=== PATIENT | female | born 1940 | race Caucasian/White ===

== ENCOUNTER 2023-05-27 18:43 | Emergency (ER) | payer MEDICARE, SELFPAY ==
[2023-05-27 18:44] VITALS: BP 128/83; PULSE 111; RESP 18; TEMP 36.3; O2SAT 97
--- NOTE | 2023-05-27 18:58 | CT_ITS ---
EXAM: CT MAXILLOFACIAL WITHOUT INTRAVENOUS CONTRAST CLINICAL INDICATION: trauma TECHNIQUE: Helically acquired images were obtained of the face without intravenous contrast. This CT exam was performed using one or more of the following dose reduction techniques: automated exposure control, adjustment of the mA and/or kV according to patient size, and/or use of iterative reconstruction technique. COMPARISON: No relevant prior studies available. FINDINGS: BONES/JOINTS: Unremarkable. No displaced fracture. No discrete lytic or blastic abnormalities. SOFT TISSUES: Unremarkable. No focal subcutaneous swelling. No discrete fluid collections. ORBITS: Unremarkable. Both globes are unremarkable. Extraocular muscles are normal. Retrobulbar fat appears unremarkable. SINUSES: Unremarkable as visualized. Clear. MASTOID AIR CELLS: Unremarkable as visualized. Clear. DENTAL: No acute findings. No periodontal osseous erosion. CT/Sinus/Facial Bone IMPRESSION: Negative CT facial bones without intravenous contrast. Electronically Signed: Manan Tong MD at 20:58 EST ,
--- NOTE | 2023-05-27 18:58 | CT_ITS ---
EXAM: CT CERVICAL SPINE WITHOUT INTRAVENOUS CONTRAST CLINICAL INDICATION: trauma TECHNIQUE: Helically acquired images were obtained of the cervical spine without intravenous contrast. 2D reformatted images were reviewed. This CT exam was performed using one or more of the following dose reduction techniques: automated exposure control, adjustment of the mA and/or kV according to patient size, and/or use of iterative reconstruction technique. COMPARISON: No relevant prior studies available. FINDINGS: VERTEBRAE: There is mild straightening of the normal cervical lordosis. No fracture. No traumatic subluxation. No discrete lytic or blastic abnormality. Normal craniocervical junction and cervicothoracic junction. DISCS/SPINAL CANAL/NEURAL FORAMINA: There is disc space narrowing at C5-6. SOFT TISSUES: Unremarkable. No prevertebral soft tissue swelling. LYMPH NODES: Unremarkable. No cervical adenopathy. LUNG APICES: Unremarkable as visualized. Clear. CT/Spine Cervical without Contras IMPRESSION: 1. No acute osseous abnormalities of the cervical spine. 2. Mild degenerative changes with disc space narrowing. There is straightening of the normal cervical lordosis which may be due to a muscular strain. Electronically Signed: Manan Tong MD at 20:59 EST ,
--- NOTE | 2023-05-27 18:58 | CT_ITS ---
EXAM: CT HEAD WITHOUT INTRAVENOUS CONTRAST CLINICAL INDICATION: trauma TECHNIQUE: Multiple axial images were obtained of the head without intravenous contrast. This CT exam was performed using one or more of the following dose reduction techniques: automated exposure control, adjustment of the mA and/or kV according to patient size, and/or use of iterative reconstruction technique. COMPARISON: No relevant prior studies available. FINDINGS: BRAIN AND EXTRA-AXIAL SPACES: There is enlargement of ventricular system and cortical sulci. There is hypoattenuation in the periventricular white matter. No intra- or extra-axial hemorrhage. No evidence of acute infarct. No intracranial mass or mass effect. There is preservation of the hansen/white matter interface. Posterior fossa structures are unremarkable. Basal cisterns are patent. BONES/JOINTS: Unremarkable. No discrete lytic or blastic abnormalities. SINUSES: Unremarkable as visualized. Clear. MASTOID AIR CELLS: Unremarkable. Clear. ORBITS: Visualized globes, extraocular muscles, optic nerves and retrobulbar fat appear unremarkable. CT/Brain/Head without Contrast IMPRESSION: 1. No acute intracranial abnormality. 2. Underlying senescent change with small vessel ischemia. Electronically Signed: Manan Tong MD at 20:49 EST ,
--- NOTE | 2023-05-27 18:59 | EX.ED.DYSGE1 ---
HPI History of Present Illness Chief Complaint: Dizziness Detail of Chief Complaint: Intermittent dizziness after a fall. Informant: patient Onset/Context/Timing Onset: Days Narrative Narrative: Patient presents with intermittent dizziness after a fall. She states that 2 days ago she got up in her home and fell. She does not know if she tripped on something or what happened that caused her to fall. She has bruising to her face as well as her right wrist. She states since that fall she will have intermittent dizziness. She describes it both as a lightheaded sensation as well as a spinning sensation. Lying in the bed currently she denies dizziness, but she states if she lays down at home and picks her head up she feels like everything is moving. She is not on anticoagulants. [facility] Medical History (Updated 05/27/23 @ 21:[address] Ayla Lai MD) Diabetes HTN (hypertension) Hyperlipidemia Posterior circulation stroke Home Medications amlodipine 5 mg tablet 5 mg PO DAILY ##60 11/30/14 [Rx Last Taken Unknown] aspirin 81 mg chewable tablet 81 mg PO DAILY@0800 ##60 11/30/14 [Rx Last Taken Unknown] atorvastatin 40 mg tablet 40 mg PO QHS ##60 11/30/14 [Rx Last Taken Unknown] lisinopril 20 mg tablet 20 mg PO DAILY ##60 11/30/14 [Rx Last Taken Unknown] meclizine 25 mg tablet 25 mg PO TID PRN PRN Vertigo #20 tabs 11/30/14 [Rx Last Taken Unknown] methylprednisolone 4 mg tablets in a dose pack 4 mg PO UD ##1 11/30/14 [Rx Last Taken Unknown] meclizine 25 mg tablet 25 mg PO BID PRN dizziness #14 tabs 05/27/23 [Rx Last Taken Unknown] Allergy/AdvReac Type Severity Reaction Status Date / Time codeine Allergy Intermediate Rash Verified 05/27/23 18:44 latex Allergy Intermediate Rash Verified 05/27/23 18:44 Sulfa (Sulfonamide Allergy Intermediate Rash Verified 05/27/23 18:44 Antibiotics) Social History Smoking Status: Never smoker ROS ROS ED Constitutional Constitutional ED: Denies chills or fever(s) Eyes Eyes: Denies change in vision or discharge from eye(s) ENT ENT ED: Denies discharge from eye(s), rhinorrhea or sore throat Cardiovascular Cardiovascular: Denies chest pain or palpitations Respiratory/Chest Respiratory/Chest: Denies cough or dyspnea Gastrointestinal Gastrointestinal: Denies abdominal pain, nausea or vomiting Genitourinary Genitourinary ED: Denies dysuria Musculoskeletal Musculoskeletal: Reports extremity pain; Denies back pain Integumentary Reports other Details: Ecchymoses ; Denies Abrasions or rash Neurologic Neurologic: Denies headache(s) or weakness Psychiatric Psychiatric: Denies anxiety or depression Allergic/Immunologic Allergic/Immunologic ED: Denies lip swelling or urticaria EXAM Physical Exam Const Vital Signs: 05/27/23 18:44 05/27/23 19:21 05/27/23 20:43 Temperature 97.3 F L Temperature Source Temporal Pulse Rate 111 H Respiratory Rate 18 16 Respiratory Effort Normal Non-Labored Respiratory Pattern Normal Blood Pressure 128/83 H Blood Pressure Mean 98 Pulse Ox 97 Oxygen Delivery Method Room Air Positive well nourished and well developed General Appearance ED: well developed HEENT HEENT Narrative: Bruising noted to the patient's forehead as well as her upper lip. Teeth are stable. No lacerations noted. Eyes PERRL and EOMs intact bilaterally Neck Neck Narrative: No C-spine tenderness. Chest Wall inspection of chest normal and palpation of chest normal Resp normal respiratory effort and clear to auscultation bilaterally Cardio regular rate and regular rhythm GI non-tender Palpation: soft Extremity Extremity Narrative: Erythema to the distal right forearm and wrist. Mild tenderness at the wrist with edema. Able to wiggle all fingers without difficulty. Neuro oriented x3 and no sensory deficits noted Motor Exam: strength 5/5 throughout Psych mental status grossly normal Skin Skin Narrative: Ecchymosis as noted above. MDM MDM MDM Narrative Medical decision making narrative: Patient sent for CT imaging of the brain, facial bones, and C-spine to evaluate for fracture, bleed, edema. Right wrist x-rays obtained to evaluate for fracture. Radiography Diagnostic Testing: Clinical Impression(s) from Imaging Studies Brain CT 05/27/23 18:58 IMPRESSION: 1. No acute intracranial abnormality. 2. Underlying senescent change with small vessel ischemia. Electronically Signed: Manan Tong MD at 20:49 EST , Cervical Spine CT 05/27/23 18:58 IMPRESSION: 1. No acute osseous abnormalities of the cervical spine. 2. Mild degenerative changes with disc space narrowing. There is straightening of the normal cervical lordosis which may be due to a muscular strain. Electronically Signed: Manan Tong MD at 20:59 EST , Facial/Sinus 05/27/23 18:58 IMPRESSION: Negative CT facial bones without intravenous contrast. Electronically Signed: Manan Tong MD at 20:58 EST , Wrist X-Ray 05/27/23 19:27 IMPRESSION: Negative right wrist x-rays. Electronically Signed: Manan Tong MD at 20:59 EST , Treatment and Re-Evaluation :: Right wrist x-rays per my interpretation reveal no evidence of acute fracture. Radiology interpretation reviewed and agrees. CT scan of the head, C-spine, and facial bones read by radiology with no acute findings and no fracture. Test results discussed with the patient. I did check her ears bilaterally and she has no evidence of infection. Patient's symptoms been intermittent and since falling and hitting her head. We discussed the likelihood that this is secondary to concussion. They are also concerned that she may have fallen because she was dizzy and may have some vertigo. At this time when she lies in bed and turns her head [id number] she does not have recurrent symptoms. I will give her a dose of Antivert here and sent a prescription to the pharmacy. We discussed different tricks at home to keep her safe to prevent falls. I also left a message for social work in regards to possible life alert button for her. Family at bedside is comfortable with this plan. Discharge Plan Triage Chief Complaint: Dizziness ED Provider: Ayla Lai Dx/Rx/DC Orders Clinical Impression: Fall, Dizziness, Concussion, Sprain of wrist Instructions: ED Concussion, ED Dizziness, Uncertain Cause, ED Wrist Sprain Prescriptions: New meclizine 25 mg tablet 25 mg PO BID PRN (Reason: dizziness) Qty: 14 0RF No Action atorvastatin 40 MG tablet 40 mg PO QHS Qty: 60 0RF Patient Comments: cholesterol lisinopril 20 MG tablet 20 mg PO DAILY Qty: 60 0RF Patient Comments: blood pressure/heart amlodipine 5 MG tablet 5 mg PO DAILY Qty: 60 0RF Patient Comments: heart/blood pressure aspirin 81 MG tablet,chewable 81 mg PO DAILY@0800 Qty: 60 0RF Patient Comments: heart health methylprednisolone 4 MG tablet 4 mg PO UD Qty: 1 0RF Patient Comments: steroid meclizine 25 MG tablet 25 mg PO TID PRN PRN (Reason: Vertigo) Qty: 20 0RF Patient Comments: dizziness Primary Care Provider: Care Physician,No Primary Referrals: Care Physician,No Primary [Primary Care Provider] - [facility] [Non-Staff] - 1 Week Disposition Disposition: Home, Self Care
--- OUTSIDE RECORDS SUMMARY | 2023-05-27 19:21 | XMS RPT_ITS | CCD ---
Author Name Unknown Address [address] [place] [address] Organization [facility] Care Team Providers Care E Learning Designer Name Role Phone Shantal Duran MD Primary Care Provider GANSHANTAL IRIZARRY Primary Care Unavailable OLDER, MAYELIN Attending Unavailable RENEE, SHANTAL Primary Care Unavailable OLDER, MAYELIN Attending Unavailable GANTA, SHANTAL Primary Care Unavailable OLDER, MAYELIN Referring Unavailable GANTA, SHANTAL Primary Care Unavailable OLDER, MAYELIN Attending Unavailable RENEE, SHANTAL Primary Care Unavailable OLDER, MAYELIN Referring Unavailable Allergies Allergy Classification Reported Allergen(s) Allergy Type Date of Onset Reaction(s) Facility (16 sources) atorvastatin; Translations: [ATORVASTATIN] Drug Allergy 2 Intolerance [facility] (16 sources) Codeine; Translations: [CODEINE] Drug Allergy 5 Anaphylaxis [facility] (16 sources) Latex; Translations: [LATEX] Propensity to adverse reactions 5 [facility] Work Phone: (16 sources) Naproxen; Translations: [NAPROXEN SODIUM] Drug Allergy 5 Intolerance [facility] (16 sources) Pravastatin; Translations: [PRAVASTATIN] Drug Allergy 0 [facility] (16 sources) Sulfonamides (Antibiotic); Translations: [SULFA (SULFONAMIDE ANTIBIOTICS)] Drug Allergy 5 Rash [facility] Work Phone: (14 sources) eggs [Other] Propensity to adverse reactions 6 [facility] (1 source) egg extract Drug Allergy 3 Itching [facility] Work Phone: (1 source) OTHER; Translations: [OTHER] Propensity to adverse reactions (disorder) 6 [facility] Medications Completed/Discontinued Medications Medication Drug Class(es) Dates Sig (Normalized) Sig (Original) amLODIPine 5 mg oral tablet (16 sources) Dihydropyridine Calcium [employer] Satinder Start: 11-01-2021 End: 10-24-2022 take 1 tablet by mouth once daily amLODIPine (NORVASC) 5 mg tablet Take 1 tablet by mouth once daily. 90 tablet 3 10/24/2022 Active Problems Active Problems Problem Classification Problem Date Documented Date Episodic/Chronic Anxiety disorders (20 sources) Mixed anxiety and depressive disorder; Translations: [Anxiety disorder, unspecified] Onset: 02-26-2017 02-26-2017 Chronic Disorders of lipid metabolism (20 sources) Hyperlipidemia; Translations: [Hyperlipidemia, unspecified] Onset: 03-29-2008 04-01-2015 Chronic Diverticulosis and diverticulitis (15 sources) Diverticulosis of colon; Translations: [Diverticulosis of large intestine without perforation or abscess without bleeding] Onset: 07-20-2005 07-20-2005 Chronic Esophageal disorders (15 sources) Gastroesophageal reflux disease; Translations: [Gastro-esophageal reflux disease without esophagitis] 06-15-2005 Chronic Essential hypertension (20 sources) Benign essential hypertension; Translations: [Essential (primary) hypertension] Onset: 09-19-2005 05-22-2021 Chronic Mood disorders (2 sources) Recurrent major depression in partial remission; Translations: [Major depressive disorder, recurrent, in partial remission] Onset: 04-25-2023 04-25-2023 Chronic Mood disorders (1 source) Mood disorders; Translations: [Anxiety and depression] Onset: 02-26-2017 Nutritional deficiencies (2 sources) Vitamin D deficiency; Translations: [Vitamin D deficiency, unspecified] Chronic Other aftercare (1 source) Patient encounter status; Translations: [Encounter for therapeutic drug level monitoring] Episodic Past or Other Problems Problem Classification Problem Date Documented Da te Episodic/Chronic Diabetes mellitus without complication (20 sources) Impaired fasting glycemia; Translations: [Impaired fasting glucose] Onset: 12-18-2006 12-18-2006 Episodic Other and unspecified benign neoplasm (15 sources) Benign neoplasm of colon; Translations: [Benign neoplasm of colon, unspecified] Onset: 07-20-2005 07-20-2005 Episodic Varicose veins of lower extremity (15 sources) Venous varices; Translations: [Asymptomatic varicose veins of unspecified lower extremity] Onset: 10-27-2007 02-17-2015 Episodic Results Test Name Value Interpretation Reference Range Facil ity Vital Signs Date Time Vital Sign Value Performing Clinician Meseret gómez 04-25-2023 11:14-0500 Body weight 68.49 kg Mayelin Older [employer] SUPERINT[employer]ENT Work Phone: [facility] 04-25-2023 11:14-0500 Diastolic blood pressure 78 mm[Hg] Mayelin Older [employer] SUPERINTENDENT Work Phone: [facility] 04-25-2023 11:14-0500 Heart rate 83 /min Mayelin Older [employer] SUPERINTENDENT Work Phone: [facility] 04-25-2023 11:14-0500 Respiratory rate 16 /min Mayelin Older [employer] SUPERINTENDENT Work Phone: [facility] 04-25-2023 11:14-0500 SaO2% (BldA) [Mass fraction] 95 % Mayelin Older [employer] SUPERINTENDENT Work Phone: [facility] 04-25-2023 11:14-0500 Systolic blood pressure 130 mm[Hg] Mayelin Older [employer] SUPERINTENDENT Work Phone: [facility] 10-24-2022 10:58-0400 Body temperature 98.01 [degF] Mayelin Older [employer] SUPERINTENDENT Work Phone: [facility] 10-24-2022 10:58-0400 Body weight 65.77 kg Mayelin Older [employer] SUPERINTENDENT Work Phone: [facility] 10-24-2022 10:58-0400 Diastolic blood pressure 86 mm[Hg] Mayelin Older [employer] SUPERINTENDENT Work Phone: [facility] 10-24-2022 10:58-0400 Heart rate 80 /min Mayelin Older [employer] SUPERINTENDENT Work Phone: [facility] 10-24-2022 10:58-0400 Respiratory rate 16 /min Mayelin Older [employer] SUPERINTENDENT Work Phone: [facility] 10-24-2022 10:58-0400 SaO2% (BldA) [Mass fraction] 96 % Mayelin Older [employer] SUPERINTENDENT Work Phone: [facility] 10-24-2022 10:58-0400 Systolic blood pressure 138 mm[Hg] Mayelin Older [employer] SUPERINTENDENT Work Phone: [facility] 07-26-2022 14:17-0500 Body temperature 99 [degF] Mayelin Older [employer] SUPERINTENDENT Work Phone: [facility] 07-26-2022 14:17-0500 Body weight 66.68 kg Mayelin Older [employer] SUPERINTENDENT Work Phone: [facility] 07-26-2022 14:17-0500 Diastolic blood pressure 76 mm[Hg] Mayelin Older [employer] SUPERINTENDENT Work Phone: [facility] 07-26-2022 14:17-0500 Heart rate 96 /min Mayelin Older [employer] SUPERINTENDENT Work Phone: [facility] 07-26-2022 14:17-0500 Respiratory rate 16 /min Mayelin Older [employer]STRUCTION SUPERINTENDENT Work Phone: [facility] 07-26-2022 14:17-0500 SaO2% (BldA) [Mass fraction] 95 % Mayelin Older [employer] SUPERINTENDENT Work Phone: [facility] 07-26-2022 14:17-0500 Systolic blood pressure 144 mm[Hg] Mayelin Older [employer] SUPERINTENDENT Work Phone: [facility] 04-23-2022 12:05-0500 Diastolic blood pressure 78 mm[Hg] Mayelin Older [employer] SUPERINTENDENT Work Phone: [facility] 04-23-2022 12:05-0500 Systolic blood pressure 134 mm[Hg] Mayelin Older [employer] SUPERINTENDENT Work Phone: [facility] 04-23-2022 11:44-0500 Body weight 68.49 kg Mayelin Older [employer] SUPERINTENDENT Work Phone: [facility] 04-23-2022 11:44-0500 Heart rate 72 /min Mayelin Older [employer] SUPERINTENDENT Work Phone: [facility] 04-23-2022 11:44-0500 Respiratory rate 16 /min Mayelin Older [employer] SUPERINTENDENT Work Phone: [facility] 01-15-2022 12:41-0400 Diastolic blood pressure 78 mm[Hg] Mayelin Older [employer] SUPERINTENDENT Work Phone: [facility] 01-15-2022 12:41-0400 Systolic blood pressure 132 mm[Hg] Mayelin Older [employer]STRUCTION SUPERINTENDENT Work Phone: [facility] 01-15-2022 12:33-0400 Body weight 67.13 kg Mayelin Older [employer]STRU[employer] SUPERINTENDENT Work Phone: [facility] 01-15-2022 12:33-0400 Heart rate 80 /min Mayelin Older [employer] SUPERINTENDENT Work Phone: [facility] 01-15-2022 12:33-0400 Respiratory rate 16 /min Mayelin Older [employer] SUPERINTENDENT Work Phone: [facility] 12-04-2021 13:05-0400 Diastolic blood pressure 79 mm[Hg] Mayelin Older [employer]STRU[employer] SUPERINTENDENT Work Phone: [facility] 12-04-2021 13:05-0400 Systolic blood pressure 147 mm[Hg] Mayelin Older [employer]STRUCTION SUPERINTENDENT Work Phone: [facility] 12-04-2021 12:38-0400 Body weight 68.95 kg Mayelin Older [employer] SUPERINTENDENT Work Phone: [facility] 12-04-2021 12:38-0400 Heart rate 76 /min Mayelin Older [employer]STRUCTION SUPERINTENDENT Work Phone: [facility] 12-04-2021 12:38-0400 Respiratory rate 16 /min Mayelin Older [employer]CTION SUPERINTENDENT Work Phone: [facility] 08-16-2021 14:09-0400 Diastolic blood pressure 72 mm[Hg] Shantal Duran MD Work Phone: [facility] 08-16-2021 14:09-0400 Systolic blood pressure 140 mm[Hg] Shantal Duran MD Work Phone: [facility] 08-16-2021 13:040 Body height 154.9 cm Shantal Duran MD Work Phone: [facility] 08-16-2021 13:26-040 Body temperature 98.4 [degF] Shantal Duran MD Work Phone: [facility] 08-16-2021 13:-040 Body weight 68.04 kg Shantal Duran MD Work Phone: [facility] 08-16-2021 13:-0400 Heart rate 87 /min Shantal Duran MD Work Phone: [facility] 08-16-2021 13:-0400 Respiratory rate 12 /min Shantal Duran MD Work Phone: [facility] 08-16-2021 13:26-0400 SaO2% (BldA) [Mass fraction] 95 % Shantal Duran MD Work Phone: [facility] Encounters Encounter Date Encounter Type Care Provider Facility Start: 04-25-2023 End: 04-25-2023 ambulatory SHANTAL DURAN Facility:[facility] Start: 04-25-2023 End: 04-25-2023 Patient encounter procedure Mayelin Blair APRN.CNP Work Phone: [facility] Plan of Treatment Date Care Activity Detail Author Start: 04-23-2026 Diabetes Screening Diabetes Screenin [facility] Start: 10-15-2025 DIABETES SCREEN DIABETES SCREEN [facility] Start: 10-15-2025 Diabetes Screening Diabetes Screenin [facility] Start: 01-25-2025 DIABETES SCREEN DIABETES SCREEN [facility] Start: 11-09-2024 DIABETES SCREEN DIABETES SCREEN [facility] Start: 04-25-2024 Covid-19 Vaccine (#1) Covid-19 Vacci ne (#1) [facility] Immunizations Immunization Date Immunization Notes Care Provider Fa chelo 04-01-2015 pneumococcal conjuga te vaccine, 13 valent Shantal Duran MD Work Phone: [facility] Work Phone: 09-19-2005 tetanus and diphther ia toxoids, adsorbed, preservative free, for adult use (2 Lf of tetanus toxoid and 2 Lf of diphtheria toxoid) Shantal Duran MD Work Phone: [facility] Work Phone: 05-02-2005 pneumococcal polysaccharide vaccine, 23 valent Shantal Duran MD Work Phone: [facility] Work Phone: Payers Date Payer Category Payer Medicare MEDICARE MEDICAR E A AND B [id number] 2003-Present [phone] [place] [address] Medicare [id number] 2003 Medicare MEDICARE MEDICAR E A AND B [id number] 2003-Present [phone] [place] [address] Medicare [id number] 2003 Medicare [id number] Social History Date Type Detail Facility Start: 10-13-2010 Tobacco smoking stat [facility] Never smoked tobacco [facility] Start: 12-16-2020 End: 04-25-2023 Alcohol intake Current non-drinker of alcohol (finding) [facility] Start: 1940 Sex Assigned At Not on file [facility] Start: 08-06-2021 End: 12-18-2021 Exposure to SARS-CoV-2 (event) Not sure [facility] Work Phone: Start: 11-24-2021 End: 01-15-2022 Exposure to SARS-CoV-2 (event) Unable to assess [facility] Start: 10-13-2010 Tobacco use and exposure Smokeless tobacco non-user [facility] Start: 05-04-2020 End: 01-15-2022 History of Social function [facility] Start: 05-04-2020 End: 01-15-2022 Tobacco use panel [facility] Adult Depression Screening Assessment 4 [facility] Clinical Notes 12-18-2006 to 04-25-2023 Mayelin Blair APRN.CNP - 04/25/2023 11:15 AM ESTTelephone Encounter - Brandt Jose Gandarae - 04/17/2023 1:06 PM ESTTelephone Encounter - Mayelin Blair APRN.CNP - 04/17/2023 12:54 PM ESTPatient Instructions Note Date & Type Note Facility 04-25-2023 Note HNO ID: [id number] Author: Mayelin Blair APRN.BONILLA Service: ? Author Type: Nurse Practitioner Type: Progress Notes Filed: 04/25/2023 5:01 PM Note Text: CC: Patient presents with: F/U 6 months HPI Denisha Sweeney is a 82 year old female who presents today for hypertension follow up. HTN: Ms. Sweeney indicates that she is feeling well and denies any symptoms referable to elevated blood pressure. Specifically denies headache, chest pain, palpitations, dyspnea, and peripheral edema. Patient denies any side effects of her medication(s) and is compliant with their regimen. She does not check BP's generally. Denisha denies regular aerobic exercise. She watches her diet for sodium, low fat and low cholesterol some of the time. Last 3 Encounter BP Readings: Date: BP: 04/25/2023 130/78 10/24/2022 138/86 07/26/2022 144/76 Anxiety and Depression: Well controlled on current treatment PHQ2 is 0 Sleep: is described as normal Alcohol use: does not drink any alcohol Drug use: No Appetite: good Stresses: Denies any major stressor. Suicidal Thoughts: No suicidal ideation, intent or plan Support: Comes from multiple sources including sons REVIEW OF SYSTEMS See HPI PAST MEDICAL HISTORY Diagnosis Date Allergic purpura (HCC) Anxiety state, unspecified 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 Diverticulosis of colon (without mention of hemorrhage) Esophageal reflux Essential hypertension, benign Intestinal disaccharidase deficiencies and disaccharide malabsorption Personal history of colonic polyps Pure hypercholesterolemia PAST SURGICAL HISTORY Procedure Laterality Date COLONOSCOPY FLX DX W/COLLJ SPEC WHEN PFRMD 10/06/08 COLONOSCOPY W/BIOPSY SINGLE/MULTIPLE 07/20/05 DILATION AND CURETTAGE DXAND/THER NONOBSTETRIC 2005 Dilation AND curettage HYSTEROSCOPY, DIAGNOSTIC (SEPARATE 2006 Hysteroscopy LIG/TRNSXJ FLP TUBE ABDL/VAG APPR UNI/BI Tubal ligation SKIN BX, 1 LESION on back was basal cell ca ALLERGIES Codeine, Latex, Naproxen Sodium, Sulfa (Sulfonamide Antibiotics), Eggs [Other], Lipitor [Atorvastatin], and Pravachol [Pravastatin] MEDICATIONS sertraline (ZOLOFT) 50 mg tablet Take 1 tablet by mouth once daily. lisinopril (ZESTRIL) 40 mg tablet Take 1 tablet by mouth once daily. hydroCHLOROthiazide 25 mg tablet Take 1 tablet by mouth once daily. simvastatin (ZOCOR) 20 mg tablet Take 1 tablet by mouth daily at bedtime. Blood Pressure Monitor (BLOOD PRESSURE KIT) 1 Each once daily. ergocalciferol(VITAMIN D 400 UNIT TAB) Take one(1) tablet daily. CALCIUM CARBONATE-VITAMIN D3 600 MG-200 UNIT CHEWABLE TAB Take one(1) tablet two(2) times daily. aspirin, enteric coated (ASPIR-81) 81 mg ORAL TbEC Take one(1) tablet daily. Multivitamin (DAILY MULTIPLE) ORAL Tab Take one(1) tablet daily. amLODIPine (NORVASC) 5 mg tablet Take 1 tablet by mouth once daily. FAMILY HISTORY Problem Relation Age of Onset Hypertension Mother Hypertension Father Cancer Mother unsure of kind Stroke Mother Social History Tobacco Use Smoking status: Never Smokeless tobacco: Never Vaping Use Vaping Use: Never used Substance Use Topics Alcohol use: No Drug use: No PHYSICAL EXAM BP 130/78 Pulse 83 Resp 16 Wt 68.5 kg (151 lb) SpO2 95% BMI 28.53 kg/m? General Appearance: well appearing, in no acute distress, alert Pysch: mood and affect broad and appropriate Skin: Skin color, texture, turgor normal for age; Eyes: conjunctiva pink and moist, no icterus, sclera white, non-injected Lungs: Lungs clear to auscultation. No wheezing, rhonchi, rales. Heart: RRR without murmur, gallop, or rubs. No ectopy Health maintenance reviewed with patient: Covid-19 Vaccine(1) Never done Shingrix Vaccine(1 of 2) Never done RSV Vaccine(1 - 1-dose 60+ series) Never done Bone Density Screening Never done DTaP,Tdap,Td Vaccine(1 - Tdap) due on 09/20/2005 Diabetes Screening due on 04/23/2026 Advance Directive Discussion Completed Pneumococcal Vaccine: 65+ Completed Influenza Vaccine Discontinued DATA REVIEWED: Most recent labs ASSESSMENT/PLAN: 1. BENIGN HYPERTENSION - ICD9: 401.1, ICD10: I10 (primary diagnosis) - Controlled - Continue current medications - Recommend home blood pressure monitoring, to bring results to next visit - Encouraged sodium restriction, DASH or Mediterranean diet - Recommend regular aerobic exercise 2. Anxiety and depression - ICD9: 300.00, 311, ICD10: F41.9, F32.A Controlled at this time - Reviewed concept of neurochemical imbalance [facility] depression/anxiety, treatment options and benefits of counseling in combination with medication. Also reviewed benefits of sleep hygeine, diet and exercise - Instructed patient to contact office or [id number] after-hours promptly should condition worsen or any new symptoms appear. - [facility] and after hours crisis line 3. (more content not included)... [facility] 04-25-2023 History of Present illness Narrative CC: Patient presents with: F/U 6 months HPI Denisha Sweeney is a 82 year old female who presents today for hypertension follow up. HTN: Ms. Sweeney indicates that she is feeling well and denies any symptoms referable to elevated blood pressure. Specifically denies headache, chest pain, palpitations, dyspnea, and peripheral edema. Patient denies any side effects of her medication(s) and is compliant with their regimen. She does not check BP's generally. Denisha denies regular aerobic exercise. She watches her diet for sodium, low fat and low cholesterol some of the time. Last 3 Encounter BP Readings: Date: BP: 04/25/2023 130/78 10/24/2022 138/86 07/26/2022 144/76 Anxiety and Depression: Well controlled on current treatment PHQ2 is 0 Sleep: is described as normal Alcohol use: does not drink any alcohol Drug use: No Appetite: good Stresses: Denies any major stressor. Suicidal Thoughts: No suicidal ideation, intent or plan Support: Comes from multiple sources including sons REVIEW OF SYSTEMS See HPI PAST MEDICAL HISTORY Diagnosis Date Allergic purpura (HCC) Anxiety state, unspecified 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 Diverticulosis of colon (without mention of hemorrhage) Esophageal reflux Essential hypertension, benign Intestinal disaccharidase deficiencies and disaccharide malabsorption Personal history of colonic polyps Pure hypercholesterolemia PAST SURGICAL HISTORY Procedure Laterality Date COLONOSCOPY FLX DX W/COLLJ SPEC WHEN PFRMD 10/06/08 COLONOSCOPY W/BIOPSY SINGLE/MULTIPLE 07/20/05 DILATION & CURETTAGE DX&/THER NONOBSTETRIC 2005 Dilation & curettage HYSTEROSCOPY, DIAGNOSTIC (SEPARATE 2006 Hysteroscopy LIG/TRNSXJ FLP TUBE ABDL/VAG APPR UNI/BI Tubal ligation SKIN BX, 1 LESION on back was basal cell ca ALLERGIES Codeine, Latex, Naproxen Sodium, Sulfa (Sulfonamide Antibiotics), Eggs [Other], Lipitor [Atorvastatin], and Pravachol [Pravastatin] MEDICATIONS sertraline (ZOLOFT) 50 mg tablet Take 1 tablet by mouth once daily. lisinopril (ZESTRIL) 40 mg tablet Take 1 tablet by mouth once daily. hydroCHLOROthiazide 25 mg tablet Take 1 tablet by mouth once daily. simvastatin (ZOCOR) 20 mg tablet Take 1 tablet by mouth daily at bedtime. Blood Pressure Monitor (BLOOD PRESSURE KIT) 1 Each once daily. ergocalciferol(VITAMIN D 400 UNIT TAB) Take one(1) tablet daily. CALCIUM CARBONATE-VITAMIN D3 600 MG-200 UNIT CHEWABLE TAB Take one(1) tablet two(2) times daily. aspirin, enteric coated (ASPIR-81) 81 mg ORAL TbEC Take one(1) tablet daily. Multivitamin (DAILY MULTIPLE) ORAL Tab Take one(1) tablet daily. amLODIPine (NORVASC) 5 mg tablet Take 1 tablet by mouth once daily. FAMILY HISTORY Problem Relation Age of Onset Hypertension Mother Hypertension Father Cancer Mother unsure of kind Stroke Mother Social History Tobacco Use Smoking status: Never Smokeless tobacco: Never Vaping Use Vaping Use: Never used Substance Use Topics Alcohol use: No Drug use: No PHYSICAL EXAM BP 130/78 Pulse 83 Resp 16 Wt 68.5 kg (151 lb) SpO2 95% BMI 28.53 kg/m General Appearance: well appearing, in no acute distress, alert Pysch: mood and affect broad and appropriate Skin: Skin color, texture, turgor normal for age; Eyes: conjunctiva pink and moist, no icterus, sclera white, non-injected Lungs: Lungs clear to auscultation. No wheezing, rhonchi, rales. Heart: RRR without murmur, gallop, or rubs. No ectopy Health maintenance reviewed with patient: Covid-19 Vaccine(1) Never done Shingrix Vaccine(1 of 2) Never done RSV Vaccine(1 - 1-dose 60+ series) Never done Bone Density Screening Never done DTaP,Tdap,Td Vaccine(1 - Tdap) due on 09/20/2005 Diabetes Screening due on 04/23/2026 Advance Directive Discussion Completed Pneumococcal Vaccine: 65+ Completed Influenza Vaccine Discontinued DATA REVIEWED: Most recent labs ASSESSMENT/PLAN: 1. BENIGN HYPERTENSION - ICD9: 401.1, ICD10: I10 (primary diagnosis) - Controlled - Continue current medications - Recommend home blood pressure monitoring, to bring results to next visit - Encouraged sodium restriction, DASH or Mediterranean diet - Recommend regular aerobic exercise 2. Anxiety and depression - ICD9: 300.00, 311, ICD10: F41.9, F32.A Controlled at this time - Reviewed concept of neurochemical imbalance wth depression/anxiety, treatment options and benefits of counseling in combination with medication. Also reviewed benefits of sleep hygeine, diet and exercise - Instructed patient to contact office or [id number] after-hours promptly should condition worsen or any new symptoms appear. - [facility] and after hours crisis line 3. Major depressive disorder, recurrent, in partial remission (HCC) - ICD9: 296.35, ICD10: F33.41 As above Prescription instructions reviewed with patient as applicable. Potential red flag symptoms discussed with the patient. Reviewed appropriate action plan to take if red flag symptoms occur. Patient agreeable to treatment plan. Mayelin Blair APRN.CNP documented in this encounter [facility] 04-17-2023 Miscellaneous Notes Patient notified. Blood work is ordered. Fasting not required. Last cholesterol levels were normal so no need to repeat at this time. Thank you Mayelin Blair APRN.CNP Patient stopped in office today asking if blood work is needed for upcoming appointment 04/25. Please advise. documented in this encounter [facility] 04-01-2023 Miscellaneous Notes Patient has been identified by name and date of : No Patient phones for refill(s): Requested Prescriptions Pending Prescriptions Disp Refills sertraline (ZOLOFT) 50 mg tablet 30 tablet 1 Sig: Take 1 tablet by mouth once daily. Date of last office visit in primary care: 10/24/2022 Date of next office visit in primary care: 04/25/2023 Last 2 Encounter Wt Readings: Date: Wt: 10/24/2022 65.8 kg (145 lb) 07/26/2022 66.7 kg (147 lb) Previous labs/tests for medication: Not applicable Please advise. Thank you. Amanda Little. Patient has been identified by name and date of : Yes Requested Prescriptions Pending Prescriptions Disp Refills sertraline (ZOLOFT) 50 mg tablet 30 tablet 1 Sig: Take 1 tablet by mouth once daily. RX INSTRUCTIONS: Patient aware RX will be sent to pharmacy. No need to notify patient. Kelly Britt documented in this encounter [facility] 01-23-2023 Miscellaneous Notes Patient has been identified by name and date of : No Patient phones for refill(s): Requested Prescriptions Pending Prescriptions Disp Refills sertraline (ZOLOFT) 50 mg tablet 30 tablet 1 Sig: Take 1 tablet by mouth once daily. Date of last office visit in primary care: 10/24/22 Last 2 Encounter Wt Readings: Date: Wt: 10/24/2022 65.8 kg (145 lb) 07/26/2022 66.7 kg (147 lb) Previous labs/tests for medication: Not applicable Please advise. Thank you. Amanda Reveles LPN Patient has been identified by name and date of : Yes Last office visit in this department: 10/24/2022 RX INSTRUCTIONS: Patient aware RX will be sent to pharmacy. No need to notify patient. Patient phones requesting refills as follows: Requested Prescriptions Pending Prescriptions Disp Refills sertraline (ZOLOFT) 50 mg tablet 30 tablet 1 Sig: Take 1 tablet by mouth once daily. Please review and advise. Ayla Middleton documented in this encounter [facility] 10-24-2022 Note HNO ID: [id number] Author: Mayelin Blair APRN.ON SITE CONSTRUCTION SUPERINTENDENT Service: ? Author Type: Nurse Practitioner Type: Progress Notes Filed: 10/24/2022 1:40 PM Note Text: CC: Patient presents with: Medicare Wellness Exam: Annual Medicare Wellness HPI Denisha Sweeney is a 81 year old female who presents today for refills on medications, routine blood pressure and depression Anxiety and Depression- sertraline, takes daily, she feels good on this dose and doesn't report any side effects. Denies SI or plans. Appetite is good. Likes to stay busy, as long as she does that she sleeps well. Enjoys the nice weather, goes for walks and gardens or works in yard. HTN and HLD: Blood pressure is not checked at home, reports buying a cuff but too complicated . Denies chest pain, headaches, only trace peripheral edema when being on her feet too long and it goes away with elevation. Denies shortness of breath. REVIEW OF SYSTEMS General: no fevers, no chills, no night sweats, no recurrent infections, no change in appetite, no change in energy, and no significant changes in weight HEENT: no frequent or significant headaches, no changes in hearing, no visual changes, no nose bleeds, no sinus or nasal problems Neck: no lumps, no pain , and no swelling Respiratory: no cough, no wheezing, no shortness of breath, no hemoptysis Cardiovascular: no chest pain, no chest pressure, no palpitations. Trace swelling to legs where socks leave a carlos enrique at times, not persistent Psych: Negative for sleep disturbance, mood disorder and recent psychosocial stressors, See HPI See HPI PAST MEDICAL HISTORY Diagnosis Date Allergic purpura (HCC) Anxiety state, unspecified 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 Diverticulosis of colon (without mention of hemorrhage) Esophageal reflux Essential hypertension, benign Intestinal disaccharidase deficiencies and disaccharide malabsorption Personal history of colonic polyps Pure hypercholesterolemia PAST SURGICAL HISTORY Procedure Laterality Date COLONOSCOPY FLX DX W/COLLJ SPEC WHEN PFRMD 10/06/08 COLONOSCOPY W/BIOPSY SINGLE/MULTIPLE 07/20/05 DILATION AND CURETTAGE DXAND/THER NONOBSTETRIC 2005 Dilation AND curettage HYSTEROSCOPY, DIAGNOSTIC (SEPARATE 2006 Hysteroscopy LIG/TRNSXJ FLP TUBE ABDL/VAG APPR UNI/BI Tubal ligation SKIN BX, 1 LESION on back was basal cell ca ALLERGIES Codeine, Latex, Naproxen Sodium, Sulfa (Sulfonamide Antibiotics), Eggs [Other], Lipitor [Atorvastatin], and Pravachol [Pravastatin] MEDICATIONS sertraline (ZOLOFT) 25 mg tablet Take 1 tablet by mouth once daily. Blood Pressure Monitor (BLOOD PRESSURE KIT) 1 Each once daily. hydroCHLOROthiazide (HYDRODIURIL, ESIDRIX) 25 mg tablet Take 1 tablet by mouth once daily. simvastatin (ZOCOR) 20 mg tablet Take 1 tablet by mouth daily at bedtime. amLODIPine (NORVASC) 5 mg tablet Take 1 tablet by mouth once daily. lisinopril (ZESTRIL, PRINIVIL) 40 mg tablet Take 1 tablet by mouth once daily. ergocalciferol(VITAMIN D 400 UNIT TAB) Take one(1) tablet daily. CALCIUM CARBONATE-VITAMIN D3 600 MG-200 UNIT CHEWABLE TAB Take one(1) tablet two(2) times daily. aspirin, enteric coated (ASPIR-81) 81 mg ORAL TbEC Take one(1) tablet daily. Multivitamin (DAILY MULTIPLE) ORAL Tab Take one(1) tablet daily. FAMILY HISTORY Problem Relation Age of Onset Hypertension Mother Hypertension Father Cancer Mother unsure of kind Stroke Mother Social History Tobacco Use Smoking status: Never Smokeless tobacco: Never Vaping Use Vaping Use: Never used Substance Use Topics Alcohol use: No Drug use: No PHYSICAL EXAM BP 138/86 Pulse 80 Temp 36.7 ?C (98 ?F) (Temporal) Resp 16 Wt 65.8 kg (145 lb) SpO2 96% BMI 27.40 kg/m? General Appearance: well appearing, in no acute distress, alert Pysch: mood and affect broad and appropriate Skin: Skin color, texture, turgor normal for age; Eyes: conjunctiva pink and moist, no icterus, sclera white, non-injected Lungs: Lungs clear to auscultation. No wheezing, rhonchi, rales. Heart: RRR without murmur, gallop, or rubs. No ectopy Health maintenance reviewed with patient: ADVANCE DIRECTIVE DISCUSSION due on 05/27/2022 DTAP,TDAP,TD(1 - Tdap) due on 12/04/2022 BONE DENSITY due on 12/04/2022 SHINGRIX VACCINE(1 of 2) due on 12/04/2022 COVID-19 VACCINE(1) due on 12/04/2022 DIABETES SCREEN due on 10/15/2025 PNEUMOCOCCAL: 65+ Completed INFLUENZA Discontinued DATA REVIEWED: Most recent labs ASSESSMENT/PLAN: 1. Medicare annual wellness visit, subsequent - ICD9: V70.0, ICD10: Z00.00 (primary diagnosis) - see medicare wellness note - Counseled on healthy diet and regular exercise - Calcium intake with supplements or by diet of 1000 mg/day for under 50, 5774-0440 mg/day for 50+ - Discussed need and benefit for weight loss. BMI 27.40 kg/(m2) - Depression screening tool completed and reviewed with patient. Based on score an (more content not included)... [facility] 10-24-2022 Note HNO ID: [id number] Author: Mayelin Blair, WASTE DUSTER.ON SITE CONSTRUCTION SUPERINTENDENT Service: ? Author Type: Nurse Practitioner Type: Progress Notes Filed: 10/24/2022 1:40 PM Note Text: Medicare Yearly Visit Medical B eligibilty date Age 63 Date of last exam 08/16/2021 PAST MEDICAL HISTORY Diagnosis Date Allergic purpura (HCC) Anxiety state, unspecified 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 Diverticulosis of colon (without mention of hemorrhage) Esophageal reflux Essential hypertension, benign Intestinal disaccharidase deficiencies and disaccharide malabsorption Personal history of colonic polyps Pure hypercholesterolemia PAST SURGICAL HISTORY Procedure Laterality Date COLONOSCOPY FLX DX W/COLLJ SPEC WHEN PFRMD 10/06/08 COLONOSCOPY W/BIOPSY SINGLE/MULTIPLE 07/20/05 DILATION AND CURETTAGE DXAND/THER NONOBSTETRIC 2005 Dilation AND curettage HYSTEROSCOPY, DIAGNOSTIC (SEPARATE 2006 Hysteroscopy LIG/TRNSXJ FLP TUBE ABDL/VAG APPR UNI/BI Tubal ligation SKIN BX, 1 LESION on back was basal cell ca ALLERGIES: Codeine, Latex, Naproxen Sodium, Sulfa (Sulfonamide Antibiotics), Eggs [Other], Lipitor [Atorvastatin], and Pravachol [Pravastatin] Medications reviewed: Yes FAMILY HISTORY Problem Relation Age of Onset Hypertension Mother Hypertension Father Cancer Mother unsure of kind Stroke Mother SOCIAL HISTORY: Social History Tobacco Use Smoking status: Never Smokeless tobacco: Never Vaping Use Vaping Use: Never used Substance Use Topics Alcohol use: No Drug use: No Denisha likes to exercise by walking. She watches her diet for sodium, low fat and low cholesterol generally not very much. List of current specialists seen: None - unable to afford to see dentistry or optometry regularly End of Live Planning discussed including patients advanced directive wishes: Yes Denisha doesn't have a POA or living will in place, she does have children who would default to decision making for her. Discussed importance of having paperwork. PHQ-2 / Depression screen She in the past two weeks admits to having felt down, depressed, hopeless, or with little interest or pleasure in doing things. She is on zoloft for this and reports effectiveness with a decrease in these symptoms PHQ-2 Score: 4 PHQ-9 Score: 12 Functional Ability/Safety Screen 1. Was the patient's timed Up and Go test unsteady or longer than 30 seconds? No 2. Does the patient need help with the phone, transportation, shopping,preparing meals, housework, laundry, medications or managing money? No- someone helps her with transportation 3. Does your home have rugs in the hallway, lack of grab bars in the bathroom, lack of handrails on the stairs or have poor lighting? Yes - has rugs but so far its ok , small bathroom and able to use door or wall for assist she says Hearing Evaluation: within normal limits, does feel it has changed some PHYSICAL EXAM BP 138/86 Pulse 80 Temp 36.7 ?C (98 ?F) (Temporal) Resp 16 Wt 65.8 kg (145 lb) SpO2 96% BMI 27.40 kg/m? Alert and oriented X 3: YES Body mass index is 27.4 kg/m?. ASSESSMENT/PLAN: 81 year old female The following prevention plan was discussed during the office visit and provided to the patient: - Lipid panel (10/15/22) - Diabetes screening (10/15/22) - Depression screening - Glaucoma screening - gave patient information on [facility] as they have free dentistry and could give her options for optometry. Mayelin Blair, ELENITA.ON SITE CONSTRUCTION SUPERINTENDENT [facility] 10-24-2022 Instructions Rula Brandt - 10/24/2022 11:29 AM EDT If able, schedule a dentist and eye doctor appointment for routine exams. Try calling [facility] for dentist routine visit. It can be a while to get in so call and get an appointment. documented in this encounter [facility] 10-24-2022 History of Present illness Narrative CC: Patient presents with: Medicare Wellness Exam: Annual Medicare Wellness HPI Denisha Sweeney is a 81 year old female who presents today for refills on medications, routine blood pressure and depression Anxiety and Depression- sertraline, takes daily, she feels good on this dose and doesn't report any side effects. Denies SI or plans. Appetite is good. Likes to stay busy, as long as she does that she sleeps well. Enjoys the nice weather, goes for walks and gardens or works in yard. HTN and HLD: Blood pressure is not checked at home, reports buying a cuff but too complicated . Denies chest pain, headaches, only trace peripheral edema when being on her feet too long and it goes away with elevation. Denies shortness of breath. REVIEW OF SYSTEMS General: no fevers, no chills, no night sweats, no recurrent infections, no change in appetite, no change in energy, and no significant changes in weight HEENT: no frequent or significant headaches, no changes in hearing, no visual changes, no nose bleeds, no sinus or nasal problems Neck: no lumps, no pain , and no swelling Respiratory: no cough, no wheezing, no shortness of breath, no hemoptysis Cardiovascular: no chest pain, no chest pressure, no palpitations. Trace swelling to legs where socks leave a carlos enrique at times, not persistent Psych: Negative for sleep disturbance, mood disorder and recent psychosocial stressors, See HPI See HPI PAST MEDICAL HISTORY Diagnosis Date Allergic purpura (HCC) Anxiety state, unspecified 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 Diverticulosis of colon (without mention of hemorrhage) Esophageal reflux Essential hypertension, benign Intestinal disaccharidase deficiencies and disaccharide malabsorption Personal history of colonic polyps Pure hypercholesterolemia PAST SURGICAL HISTORY Procedure Laterality Date COLONOSCOPY FLX DX W/COLLJ SPEC WHEN PFRMD 10/06/08 COLONOSCOPY W/BIOPSY SINGLE/MULTIPLE 07/20/05 DILATION & CURETTAGE DX&/THER NONOBSTETRIC 2005 Dilation & curettage HYSTEROSCOPY, DIAGNOSTIC (SEPARATE 2006 Hysteroscopy LIG/TRNSXJ FLP TUBE ABDL/VAG APPR UNI/BI Tubal ligation SKIN BX, 1 LESION on back was basal cell ca ALLERGIES Codeine, Latex, Naproxen Sodium, Sulfa (Sulfonamide Antibiotics), Eggs [Other], Lipitor [Atorvastatin], and Pravachol [Pravastatin] MEDICATIONS sertraline (ZOLOFT) 25 mg tablet Take 1 tablet by mouth once daily. Blood Pressure Monitor (BLOOD PRESSURE KIT) 1 Each once daily. hydroCHLOROthiazide (HYDRODIURIL, ESIDRIX) 25 mg tablet Take 1 tablet by mouth once daily. simvastatin (ZOCOR) 20 mg tablet Take 1 tablet by mouth daily at bedtime. amLODIPine (NORVASC) 5 mg tablet Take 1 tablet by mouth once daily. lisinopril (ZESTRIL, PRINIVIL) 40 mg tablet Take 1 tablet by mouth once daily. ergocalciferol(VITAMIN D 400 UNIT TAB) Take one(1) tablet daily. CALCIUM CARBONATE-VITAMIN D3 600 MG-200 UNIT CHEWABLE TAB Take one(1) tablet two(2) times daily. aspirin, enteric coated (ASPIR-81) 81 mg ORAL TbEC Take one(1) tablet daily. Multivitamin (DAILY MULTIPLE) ORAL Tab Take one(1) tablet daily. FAMILY HISTORY Problem Relation Age of Onset Hypertension Mother Hypertension Father Cancer Mother unsure of kind Stroke Mother Social History Tobacco Use Smoking status: Never Smokeless tobacco: Never Vaping Use Vaping Use: Never used Substance Use Topics Alcohol use: No Drug use: No PHYSICAL EXAM BP 138/86 Pulse 80 Temp 36.7 C (98 F) (Temporal) Resp 16 Wt 65.8 kg (145 lb) SpO2 96% BMI 27.40 kg/m General Appearance: well appearing, in no acute distress, alert Pysch: mood and affect broad and appropriate Skin: Skin color, texture, turgor normal for age; Eyes: conjunctiva pink and moist, no icterus, sclera white, non-injected Lungs: Lungs clear to auscultation. No wheezing, rhonchi, rales. Heart: RRR without murmur, gallop, or rubs. No ectopy Health maintenance reviewed with patient: ADVANCE DIRECTIVE DISCUSSION due on 05/27/2022 DTAP,TDAP,TD(1 - Tdap) due on 12/04/2022 BONE DENSITY due on 12/04/2022 SHINGRIX VACCINE(1 of 2) due on 12/04/2022 COVID-19 VACCINE(1) due on 12/04/2022 DIABETES SCREEN due on 10/15/2025 PNEUMOCOCCAL: 65+ Completed INFLUENZA Discontinued DATA REVIEWED: Most recent labs ASSESSMENT/PLAN: 1. Medicare annual wellness visit, subsequent - ICD9: V70.0, ICD10: Z00.00 (primary diagnosis) - see medicare wellness note - Counseled on healthy diet and regular exercise - Calcium intake with supplements or by diet of 1000 mg/day for under 50, 9365-2354 mg/day for 50+ - Discussed need and benefit for weight loss. BMI 27.40 kg/(m^2) - Depression screening tool completed and reviewed with patient. Based on score and interview, patient is already diagnosed with depression and recommended no further intervention at this time. - Follow up for annual exam in one year 2. Essential hypertension - ICD9: 401.9, ICD10: I10 - good control - Continue current medication(s) - Encouraged dietary sodium restriction/DASH diet - Recommended regular aerobic exercise. - Recommend home blood pressure monitoring, to bring results in on next visit - Goal of BP <130/80 3. Anxiety and depression - ICD9: 300.00, 311, ICD10: F41.9, F32.A Controlled on current treatment - Reviewed concept of neurochemical imbalance wth depression/anxiety, treatment options and benefits of counseling in combination with medication. Also reviewed benefits of sleep hygeine, diet and exercise - Instructed patient to contact office or [id number] after-hours promptly should condition worsen or any new symptoms appear. - Counseling Center [facility] and after hours crisis line 4. Hyperlipidemia LDL goal <130 - ICD9: 272.4, ICD10: E78.5 - good control - Continue current medication. - Encouraged following a low fat, low cholesterol diet. - Discussed the benefits of regular aerobic exercise and weight loss. 5. Prediabetes - ICD9: 790.29, ICD10: R73.03 HGBA1c normal at this time Prescription instructions reviewed with patient as applicable. Potential red flag symptoms discussed with the patient. Reviewed appropriate action plan to take if red flag symptoms occur. Patient agreeable to treatment plan. Mayelin Blair APRN.CNP Medicare Yearly Visit Medical B eligibilty date Age 63 Date of last exam 08/16/2021 PAST MEDICAL HISTORY Diagnosis Date Allergic purpura (HCC) Anxiety state, unspecified 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 Diverticulosis of colon (without mention of hemorrhage) Esophageal reflux Essential hypertension, benign Intestinal disaccharidase deficiencies and disaccharide malabsorption Personal history of colonic polyps Pure hypercholesterolemia PAST SURGICAL HISTORY Procedure Laterality Date COLONOSCOPY FLX DX W/COLLJ SPEC WHEN PFRMD 10/06/08 COLONOSCOPY W/BIOPSY SINGLE/MULTIPLE 07/20/05 DILATION & CURETTAGE DX&/THER NONOBSTETRIC 2006 Dilation & curettage HYSTEROSCOPY, DIAGNOSTIC (SEPARATE 2006 Hysteroscopy LIG/TRNSXJ FLP TUBE ABDL/VAG APPR UNI/BI Tubal ligation SKIN BX, 1 LESION on back was basal cell ca ALLERGIES: Codeine, Latex, Naproxen Sodium, Sulfa (Sulfonamide Antibiotics), Eggs [Other], Lipitor [Atorvastatin], and Pravachol [Pravastatin] Medications reviewed: Yes FAMILY HISTORY Problem Relation Age of Onset Hypertension Mother Hypertension Father Cancer Mother unsure of kind Stroke Mother SOCIAL HISTORY: Social History Tobacco Use Smoking status: Never Smokeless tobacco: Never Vaping Use Vaping Use: Never used Substance Use Topics Alcohol use: No Drug use: No Denisha likes to exercise by walking. She watches her diet for sodium, low fat and low cholesterol generally not very much. List of current specialists seen: None - unable to afford to see dentistry or optometry regularly End of Live Planning discussed including patients advanced directive wishes: Yes Denisha doesn't have a POA or living will in place, she does have children who would default to decision making for her. Discussed importance of having paperwork. PHQ-2 / Depression screen She in the past two weeks admits to having felt down, depressed, hopeless, or with little interest or pleasure in doing things. She is on zoloft for this and reports effectiveness with a decrease in these symptoms PHQ-2 Score: 4 PHQ-9 Score: 12 Functional Ability/Safety Screen 1. Was the patient's timed Up and Go test unsteady or longer than 30 seconds? No 2. Does the patient need help with the phone, transportation, shopping,preparing meals, housework, laundry, medications or managing money? No- someone helps her with transportation 3. Does your home have rugs in the hallway, lack of grab bars in the bathroom, lack of handrails on the stairs or have poor lighting? Yes - has rugs but so far its ok , small bathroom and able to use door or wall for assist she says Hearing Evaluation: within normal limits, does feel it has changed some PHYSICAL EXAM BP 138/86 Pulse 80 Temp 36.7 C (98 F) (Temporal) Resp 16 Wt 65.8 kg (145 lb) SpO2 96% BMI 27.40 kg/m Alert and oriented X 3: YES Body mass index is 27.4 kg/m . ASSESSMENT/PLAN: 81 year old female The following prevention plan was discussed during the office visit and provided to the patient: - Lipid panel (10/15/22) - Diabetes screening (10/15/22) - Depression screening - Glaucoma screening - gave patient information on [facility] as they have free dentistry and could give her options for optometry. Mayelin Blair APRN.CNP documented in this encounter [facility] 07-26-2022 Note HNO ID: [id number] Author: Mayelin Blair APRN.CNP Service: ? Author Type: Nurse Practitioner Type: Progress Notes Filed: 07/26/2022 2:47 PM Note Text: CC: Patient presents with: Recheck: Medication follow up HPI Denisha Sweeney is a 81 year old female who presents today for follow up on sertraline. Had stopped taking this a while ago but restarted her leftover pills and restarted a week or so ago and feels like her mood has already improved. Did restart with a previous 25mg dosage verus the 50mg that was last prescribed. Depression and anxiety Sleep: is described as normal Alcohol use: does not drink any alcohol Drug use: No Appetite: good Stresses: Denies any major stressor. Suicidal Thoughts: No suicidal ideation, intent or plan Support: Comes from multiple sources including children Counseling: No REVIEW OF SYSTEMS General: no fevers, no chills, no night sweats, no recurrent infections, no change in appetite, no change in energy, and no significant changes in weight Respiratory: no cough, no wheezing, no shortness of breath, no hemoptysis Cardiovascular: no chest pain, no chest pressure, no palpitations, and no swelling Neurologic: No headache, weakness, numbness, tingling, dizziness, syncope. CP PHQ9 07/26/2022 Little interest or pleasure 1 - Several days Feeling down, depressed, hopeless 1 - Several days Trouble falling or staying asleep, sleeping too much 0 - Not at all Feeling tired, having little energy 0 - Not at all Poor appetite or overeating 0 - Not at all Feeling bad about yourself, failure or you have let yourself/family down 3 - Nearly every day Trouble concentrating on things 0 - Not at all Moving or speaking so slowly, or fidgety or restless 0 - Not at all Thoughts that you would be better off , or of hurting yourself in some way 0 - Not at all How difficult have these problems made things Somewhat difficult Interpretation of Total Score 5-9 Mild depression HSELBY-7 ANXIETY SCALE 07/26/2022 FEELING NERVOUS,ANXIOUS,OR ON EDGE 3 Nearly every day NOT BEING ABLE TO STOP OR CONTROL WORRYING 3 Nearly every day WORRYING TOO MUCH ABOUT DIFFERENT THINGS 3 Nearly every day TROUBLE RELAXING 0 Not at all sure BEING SO RESTLESS THAT IT'S HARD TO SIT STILL 0 Not at all sure BEING EASILY ANNOYED OR IRRITABLE 1 Several days FEELING AFRAID IF SOMETHING AWFUL MIGHT HAPPEN 0 Not at all sure GAD7 SCORE 10 IF YOU CHECKED OFF ANY PROBLEMS Somewhat difficult PAST MEDICAL HISTORY Diagnosis Date Allergic purpura (HCC) Anxiety state, unspecified 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 Diverticulosis of colon (without mention of hemorrhage) Esophageal reflux Essential hypertension, benign Intestinal disaccharidase deficiencies and disaccharide malabsorption Personal history of colonic polyps Pure hypercholesterolemia PAST SURGICAL HISTORY Procedure Laterality Date COLONOSCOPY FLX DX W/COLLJ SPEC WHEN PFRMD 10/06/08 COLONOSCOPY W/BIOPSY SINGLE/MULTIPLE 07/20/05 DILATION AND CURETTAGE DXAND/THER NONOBSTETRIC 2005 Dilation AND curettage HYSTEROSCOPY, DIAGNOSTIC (SEPARATE 2006 Hysteroscopy LIG/TRNSXJ FLP TUBE ABDL/VAG APPR UNI/BI Tubal ligation SKIN BX, 1 LESION on back was basal cell ca ALLERGIES Codeine, Latex, Naproxen Sodium, Sulfa (Sulfonamide Antibiotics), Eggs [Other], Lipitor [Atorvastatin], and Pravachol [Pravastatin] MEDICATIONS sertraline (ZOLOFT) 50 mg tablet Take 1 tablet by mouth once daily. hydroCHLOROthiazide (HYDRODIURIL, ESIDRIX) 25 mg tablet Take 1 tablet by mouth once daily. simvastatin (ZOCOR) 20 mg tablet Take 1 tablet by mouth daily at bedtime. amLODIPine (NORVASC) 5 mg tablet Take 1 tablet by mouth once daily. lisinopril (ZESTRIL, PRINIVIL) 40 mg tablet Take 1 tablet by mouth once daily. Blood Pressure Monitor (BLOOD PRESSURE KIT) 1 Each once daily. ergocalciferol(VITAMIN D 400 UNIT TAB) Take one(1) tablet daily. CALCIUM CARBONATE-VITAMIN D3 600 MG-200 UNIT CHEWABLE TAB Take one(1) tablet two(2) times daily. aspirin, enteric coated (ASPIR-81) 81 mg ORAL TbEC Take one(1) tablet daily. Multivitamin (DAILY MULTIPLE) ORAL Tab Take one(1) tablet daily. FAMILY HISTORY Problem Relation Age of Onset Hypertension Mother Hypertension Father Cancer Mother unsure of kind Stroke Mother Social History Tobacco Use Smoking status: Never Smokeless tobacco: Never Vaping Use Vaping Use: Never used Substance Use Topics Alcohol use: No Drug use: No PHYSICAL EXAM BP 144/76 Pulse 96 Temp 37.2 ?C (99 ?F) (Temporal) Resp 16 Wt 66.7 kg (147 lb) SpO2 95% BMI 27.78 kg/m? Appearance: well dressed well groomed, cooperative, and pleasant Behavior: good eye contact Speech: normal and fluent and coherent Mood: euthymic Affect: appropriate Perceptions: none Thought process: normal Thought Content: normal Intelligence level: normal Insight: good Judgment: good (more content not included)... [facility] 07-26-2022 History of Present illness Narrative CC: Patient presents with: Recheck: Medication follow up HPI Denisha Sweeney is a 81 year old female who presents today for follow up on sertraline. Had stopped taking this a while ago but restarted her leftover pills and restarted a week or so ago and feels like her mood has already improved. Did restart with a previous 25mg dosage verus the 50mg that was last prescribed. Depression and anxiety Sleep: is described as normal Alcohol use: does not drink any alcohol Drug use: No Appetite: good Stresses: Denies any major stressor. Suicidal Thoughts: No suicidal ideation, intent or plan Support: Comes from multiple sources including children Counseling: No REVIEW OF SYSTEMS General: no fevers, no chills, no night sweats, no recurrent infections, no change in appetite, no change in energy, and no significant changes in weight Respiratory: no cough, no wheezing, no shortness of breath, no hemoptysis Cardiovascular: no chest pain, no chest pressure, no palpitations, and no swelling Neurologic: No headache, weakness, numbness, tingling, dizziness, syncope. CP PHQ9 07/26/2022 Little interest or pleasure 1 - Several days Feeling down, depressed, hopeless 1 - Several days Trouble falling or staying asleep, sleeping too much 0 - Not at all Feeling tired, having little energy 0 - Not at all Poor appetite or overeating 0 - Not at all Feeling bad about yourself, failure or you have let yourself/family down 3 - Nearly every day Trouble concentrating on things 0 - Not at all Moving or speaking so slowly, or fidgety or restless 0 - Not at all Thoughts that you would be better off , or of hurting yourself in some way 0 - Not at all How difficult have these problems made things Somewhat difficult Interpretation of Total Score 5-9 Mild depression SHELBY-7 ANXIETY SCALE 07/26/2022 FEELING NERVOUS,ANXIOUS,OR ON EDGE 3 Nearly every day NOT BEING ABLE TO STOP OR CONTROL WORRYING 3 Nearly every day WORRYING TOO MUCH ABOUT DIFFERENT THINGS 3 Nearly every day TROUBLE RELAXING 0 Not at all sure BEING SO RESTLESS THAT IT'S HARD TO SIT STILL 0 Not at all sure BEING EASILY ANNOYED OR IRRITABLE 1 Several days FEELING AFRAID IF SOMETHING AWFUL MIGHT HAPPEN 0 Not at all sure GAD7 SCORE 10 IF YOU CHECKED OFF ANY PROBLEMS Somewhat difficult PAST MEDICAL HISTORY Diagnosis Date Allergic purpura (HCC) Anxiety state, unspecified 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 Diverticulosis of colon (without mention of hemorrhage) Esophageal reflux Essential hypertension, benign Intestinal disaccharidase deficiencies and disaccharide malabsorption Personal history of colonic polyps Pure hypercholesterolemia PAST SURGICAL HISTORY Procedure Laterality Date COLONOSCOPY FLX DX W/COLLJ SPEC WHEN PFRMD 10/06/08 COLONOSCOPY W/BIOPSY SINGLE/MULTIPLE 07/20/05 DILATION & CURETTAGE DX&/THER NONOBSTETRIC 2006 Dilation & curettage HYSTEROSCOPY, DIAGNOSTIC (SEPARATE 2006 Hysteroscopy LIG/TRNSXJ FLP TUBE ABDL/VAG APPR UNI/BI Tubal ligation SKIN BX, 1 LESION on back was basal cell ca ALLERGIES Codeine, Latex, Naproxen Sodium, Sulfa (Sulfonamide Antibiotics), Eggs [Other], Lipitor [Atorvastatin], and Pravachol [Pravastatin] MEDICATIONS sertraline (ZOLOFT) 50 mg tablet Take 1 tablet by mouth once daily. hydroCHLOROthiazide (HYDRODIURIL, ESIDRIX) 25 mg tablet Take 1 tablet by mouth once daily. simvastatin (ZOCOR) 20 mg tablet Take 1 tablet by mouth daily at bedtime. amLODIPine (NORVASC) 5 mg tablet Take 1 tablet by mouth once daily. lisinopril (ZESTRIL, PRINIVIL) 40 mg tablet Take 1 tablet by mouth once daily. Blood Pressure Monitor (BLOOD PRESSURE KIT) 1 Each once daily. ergocalciferol(VITAMIN D 400 UNIT TAB) Take one(1) tablet daily. CALCIUM CARBONATE-VITAMIN D3 600 MG-200 UNIT CHEWABLE TAB Take one(1) tablet two(2) times daily. aspirin, enteric coated (ASPIR-81) 81 mg ORAL TbEC Take one(1) tablet daily. Multivitamin (DAILY MULTIPLE) ORAL Tab Take one(1) tablet daily. FAMILY HISTORY Problem Relation Age of Onset Hypertension Mother Hypertension Father Cancer Mother unsure of kind Stroke Mother Social History Tobacco Use Smoking status: Never Smokeless tobacco: Never Vaping Use Vaping Use: Never used Substance Use Topics Alcohol use: No Drug use: No PHYSICAL EXAM BP 144/76 Pulse 96 Temp 37.2 C (99 F) (Temporal) Resp 16 Wt 66.7 kg (147 lb) SpO2 95% BMI 27.78 kg/m Appearance: well dressed well groomed, cooperative, and pleasant Behavior: good eye contact Speech: normal and fluent and coherent Mood: euthymic Affect: appropriate Perceptions: none Thought process: normal Thought Content: normal Intelligence level: normal Insight: good Judgment: good ASSESSMENT/PLAN: 1. Anxiety and depression - ICD9: 300.00, 311, ICD10: F41.9, F32.A - improvement per patient with starting zoloft, unsure of baseline prior restarting prescription. Has tolerated this well in the past so will continue with this dosage and keep upcoming appointment. - Reviewed concept of neurochemical imbalance wth depression/anxiety, treatment options and benefits of counseling in combination with medication. Also reviewed benefits of sleep hygeine, diet and exercise - Instructed patient to contact office or [id number] after-hours promptly should condition worsen or any new symptoms appear. - [facility] and after hours crisis line Prescription instructions reviewed with patient as applicable. Potential red flag symptoms discussed with the patient. Reviewed appropriate action plan to take if red flag symptoms occur. Patient agreeable to treatment plan Mayelin Blair APRN.CNP documented in this encounter [facility] 04-23-2022 History of Present illness Narrative CC: Patient presents with: Recheck: 3 month follow up HPI Denisha Sweeney is a 81 year old female who presents today for 3 month hypertension follow up. HTN and Hyperlipidemia: Ms. Sweeney indicates that she is feeling well and denies any symptoms referable to elevated blood pressure. Specifically denies headache, chest pain, palpitations, dyspnea, and peripheral edema. Patient denies any side effects of her medication(s) and is compliant with their regimen. She does not check BP's generally. Denisha denies regular aerobic exercise. She watches her diet for sodium, low fat and low cholesterol most of the time but has difficulty in doing this because of cost of fresh produce. Last 3 Encounter BP Readings: Date: BP: 04/23/2022 144/70 01/15/2022 132/78 12/18/2021 160/77[BP João average[ REVIEW OF SYSTEMS General: no fevers, no chills, no night sweats, no recurrent infections, no change in appetite, no change in energy, and no significant changes in weight Respiratory: no cough, no wheezing, no shortness of breath, no hemoptysis Cardiovascular: no chest pain, no chest pressure, no palpitations, and no swelling Neurologic: No headache, weakness, numbness, tingling, dizziness, memory loss, syncope. PAST MEDICAL HISTORY Diagnosis Date Allergic purpura (HCC) Anxiety state, unspecified 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 Diverticulosis of colon (without mention of hemorrhage) Esophageal reflux Essential hypertension, benign Intestinal disaccharidase deficiencies and disaccharide malabsorption Personal history of colonic polyps Pure hypercholesterolemia PAST SURGICAL HISTORY Procedure Laterality Date COLONOSCOPY FLX DX W/COLLJ SPEC WHEN PFRMD 10/06/08 COLONOSCOPY W/BIOPSY SINGLE/MULTIPLE 07/20/05 DILATION & CURETTAGE DX&/THER NONOBSTETRIC 2005 Dilation & curettage HYSTEROSCOPY, DIAGNOSTIC (SEPARATE 2005 Hysteroscopy LIG/TRNSXJ FLP TUBE ABDL/VAG APPR UNI/BI Tubal ligation SKIN BX, 1 LESION on back was basal cell ca ALLERGIES Codeine, Latex, Naproxen Sodium, Sulfa (Sulfonamide Antibiotics), Eggs [Other], Lipitor [Atorvastatin], and Pravachol [Pravastatin] MEDICATIONS Blood Pressure Monitor (BLOOD PRESSURE KIT) 1 Each once daily. hydroCHLOROthiazide (HYDRODIURIL, ESIDRIX) 25 mg tablet Take 1 tablet by mouth once daily. simvastatin (ZOCOR) 20 mg tablet Take 1 tablet by mouth daily at bedtime. sertraline (ZOLOFT) 50 mg tablet Take 1 tablet by mouth once daily. amLODIPine (NORVASC) 5 mg tablet Take 1 tablet by mouth once daily. lisinopril (ZESTRIL, PRINIVIL) 40 mg tablet Take 1 tablet by mouth once daily. ergocalciferol(VITAMIN D 400 UNIT TAB) Take one(1) tablet daily. CALCIUM CARBONATE-VITAMIN D3 600 MG-200 UNIT CHEWABLE TAB Take one(1) tablet two(2) times daily. aspirin, enteric coated (ASPIR-81) 81 mg ORAL TbEC Take one(1) tablet daily. Multivitamin (DAILY MULTIPLE) ORAL Tab Take one(1) tablet daily. FAMILY HISTORY Problem Relation Age of Onset Hypertension Mother Hypertension Father Cancer Mother unsure of kind Stroke Mother Social History Tobacco Use Smoking status: Never Smokeless tobacco: Never Vaping Use Vaping Use: Never used Substance Use Topics Alcohol use: No Drug use: No PHYSICAL EXAM BP 144/70 Pulse 72 Resp 16 Wt 68.5 kg (151 lb) BMI 28.53 kg/m General Appearance: well appearing, in no acute distress, alert Skin: Skin color, texture, turgor normal for age; Eyes: conjunctiva pink and moist, no icterus, sclera white, non-injected Neck: Thyroid normal size and symmetric without palpable nodules, No adenopathy Lymph nodes: No cervical lymphadenopathy and No supraclavicular lymphadenopathy Lungs: Lungs clear to auscultation. No wheezing, rhonchi, rales. Heart: RRR without murmur, gallop, or rubs. No ectopy Health maintenance reviewed with patient: DTAP,TDAP,TD(1 - Tdap) due on 12/04/2022 BONE DENSITY due on 12/04/2022 SHINGRIX VACCINE(1 of 2) due on 12/04/2022 COVID-19 VACCINE(1) due on 12/04/2022 DIABETES SCREEN due on 01/25/2025 ADVANCE DIRECTIVE DISCUSSION Completed PNEUMOCOCCAL: 65+ Completed INFLUENZA Discontinued DATA REVIEWED: No new labs ASSESSMENT/PLAN: 1. Essential hypertension - ICD9: 401.9, ICD10: I10 (primary diagnosis) - good control - Continue current medication(s) - Encouraged dietary sodium restriction/DASH diet - Recommended regular aerobic exercise. - Recommend home blood pressure monitoring, to bring results in on next visit - Goal of BP <130/80 - COMP METABOLIC PANEL - CBC + DIFF 2. Prediabetes - ICD9: 790.29, ICD10: R73.03 Controlled when checked 4 months ago with HGbA1c at 5.9 will review further at follow up appointment. - COMP METABOLIC PANEL - HGB A1C - CBC + DIFF 3. Hyperlipidemia LDL goal <130 - ICD9: 272.4, ICD10: E78.5 - to be determined upon return of lab results - Continue current medication. - Encouraged following a low fat, low cholesterol diet. - Discussed the benefits of regular aerobic exercise and weight loss. - HGB A1C - LIPID PANEL BASIC Prescription instructions reviewed with patient as applicable. Potential red flag symptoms discussed with the patient. Reviewed appropriate action plan to take if red flag symptoms occur. Patient agreeable to treatment plan. Mayelin Blair APRN.CNP documented in this encounter [facility] 01-26-2022 Miscellaneous Notes Patient notified. ----- Message from Mayelin Blair APRN.CNP sent at 01/26/2022 1:39 PM EDT ----- Please let patient know lab work is normal. Continue current medications. Take care Mayelin Blair APRN.CNP documented in this encounter [facility] 01-15-2022 History of Present illness Narrative CC Patient presents with: Recheck: 6 week medication follow up HPI Denisha Sweeney is a 81 year old female who presents to the office for blood pressure. Her visit today is for re-evaluation. Patient was last seen for this approximately 1 month ago. Medication changes: Yes Started HCTZ 25mg po daily after BP still elevated at nurse visit 2 weeks ago. Taking all medications as prescribed: Yes Side effects: No Home BP's: No Denies: headache, chest pain, palpitations, dyspnea, and peripheral edema. Last 4 Encounter BP Readings: Date: BP: 01/15/2022 144/78 12/18/2021 160/77[BP João average[ 12/04/2021 147/79[BP João[ 08/16/2021 140/72 Last 3 Encounter Wt Readings: Date: Wt: 01/15/2022 67.1 kg (148 lb) 12/04/2021 68.9 kg (152 lb) 08/16/2021 68 kg (150 lb) Exercise: works out regularly 7 times per week with yard work. Diet: Watch for salt, fat, cholesterol: Yes. Caffeine: none Water intake: 1-2 glasses a day Alcohol intake: none . Smoking: No Frequent NSAID use: No Decongestants: No Thyroid disorders? No REVIEW OF SYSTEMS General: no fevers, no chills, no night sweats, no recurrent infections, no change in appetite, no change in energy, and no significant changes in weight Respiratory: no cough, no wheezing, no shortness of breath, no hemoptysis Cardiovascular: no chest pain, no chest pressure, no palpitations, and no swelling PAST MEDICAL HISTORY Diagnosis Date Allergic purpura (HCC) Anxiety state, unspecified 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 Diverticulosis of colon (without mention of hemorrhage) Esophageal reflux Essential hypertension, benign Intestinal disaccharidase deficiencies and disaccharide malabsorption Personal history of colonic polyps Pure hypercholesterolemia PAST SURGICAL HISTORY Procedure Laterality Date COLONOSCOPY FLX DX W/COLLJ SPEC WHEN PFRMD 10/06/08 COLONOSCOPY W/BIOPSY SINGLE/MULTIPLE 07/20/05 DILATION & CURETTAGE DX&/THER NONOBSTETRIC 2005 Dilation & curettage HYSTEROSCOPY, DIAGNOSTIC (SEPARATE 2005 Hysteroscopy LIG/TRNSXJ FLP TUBE ABDL/VAG APPR UNI/BI Tubal ligation SKIN BX, 1 LESION on back was basal cell ca ALLERGIES Codeine, Latex, Naproxen Sodium, Sulfa (Sulfonamide Antibiotics), Eggs [Other], Lipitor [Atorvastatin], and Pravachol [Pravastatin] MEDICATIONS hydroCHLOROthiazide (HYDRODIURIL, ESIDRIX) 25 mg tablet Take 1 tablet by mouth once daily. simvastatin (ZOCOR) 20 mg tablet Take 1 tablet by mouth daily at bedtime. Blood Pressure Monitor (BLOOD PRESSURE KIT) 1 Each once daily. sertraline (ZOLOFT) 50 mg tablet Take 1 tablet by mouth once daily. amLODIPine (NORVASC) 5 mg tablet Take 1 tablet by mouth once daily. lisinopril (ZESTRIL, PRINIVIL) 40 mg tablet Take 1 tablet by mouth once daily. ergocalciferol(VITAMIN D 400 UNIT TAB) Take one(1) tablet daily. CALCIUM CARBONATE-VITAMIN D3 600 MG-200 UNIT CHEWABLE TAB Take one(1) tablet two(2) times daily. aspirin, enteric coated (ASPIR-81) 81 mg ORAL TbEC Take one(1) tablet daily. Multivitamin (DAILY MULTIPLE) ORAL Tab Take one(1) tablet daily. FAMILY HISTORY Problem Relation Age of Onset Hypertension Mother Hypertension Father Cancer Mother unsure of kind Stroke Mother Social History Tobacco Use Smoking status: Never Smokeless tobacco: Never Vaping Use Vaping Use: Never used Substance Use Topics Alcohol use: No Drug use: No PHYSICAL EXAM BP 144/78 Pulse 80 Resp 16 Wt 67.1 kg (148 lb) BMI 27.96 kg/m General Appearance: well appearing, in no acute distress, alert Lungs: Lungs clear to auscultation. No wheezing, rhonchi, rales. Heart: RRR without murmur, gallop, or rubs. No ectopy DATA REVIEWED: No new labs ASSESSMENT/PLAN: 1. BENIGN HYPERTENSION - ICD9: 401.1, ICD10: I10 (primary diagnosis) Improved control. Parameters of monitoring explained to patient. - Continue current medication(s) - Encouraged dietary sodium restriction/DASH diet - Recommended regular aerobic exercise. - Recommend home blood pressure monitoring, to bring results in on next visit - Goal of BP <130/80 - BLOOD PRESSURE MONITOR KIT - BASIC METABOLIC PNL 2. Medication monitoring encounter - ICD9: V58.83, ICD10: Z51.81 - since starting HCTZ need to re-evaluate kidney function and electrolytes. - BASIC METABOLIC PNL Prescription instructions reviewed with patient as applicable. Potential red flag symptoms discussed with the patient. Reviewed appropriate action plan to take if red flag symptoms occur. Patient agreeable to treatment plan Mayelin Blair APRN.CNP documented in this encounter [facility] 12-19-2021 Miscellaneous Notes The following approved medication requests have been transmitted electronically. Signed Prescriptions Disp Refills hydroCHLOROthiazide (HYDRODIURIL, ESIDRIX) 25 mg tablet 90 tablet 3 Sig: Take 1 tablet by mouth once daily. Authorizing Provider: ROSE BLAIR APRN.CNP Patient notified & agrees. Pended medication with pharmacy verified. Linda Bone MA Consider adding a mild diuretic. hydrochlorothiazide 25 mg daily. Possible but less likely side effects include dehydration, electrolyte imbalance. She had been on this medication for several years until 2016. If agreeable, I'll escript prescription. Manual Readin/91 Pulse: 83 BP João average: 160/77 P: 82 Repeat BP Check: 169/78 P80 #1 165/78 P82 #2 158/77 P80 #3 154/76 P87 #4 157/79 P80 #5 158/73 P82 #6 Reason for blood pressure check - Last BP elevated Patient is: Taking medication as prescribed Yes Took medication today Yes If no, date medication last taken N/A Experiencing side effects No BP was elevated at last appt 12/04/21. No BP medication changes were made at that time. Taking all medications as prescribed. Denies any chest pain, shortness of breath, dizziness, or headaches. No caffeine use. No personal history of tobacco use; no current exposure. Alert and oriented. Pt has been identified by name and birthdate: Yes Allergies reviewed: Yes Latex allergy: no. Medication - prescribed and OTC reviewed and updated: Yes Do you need any prescription refills prior to your next visit: No Health Maintenance: Reviewed and up to date Patient advised that she would be contacted after review by Dr almond blancher hand. Aubrie Waters LPN documented in this encounter [facility] 12-04-2021 History of Present illness Narrative blooCC: Patient presents with: Recheck: 3 month HTN follow up HPI Denisha Sweeney is a 81 year old female who presents today for follow up on hypertension. Has trouble finding a ride and relies on son who is handicapped so prefers to not have many in office visits. HTN and HLD: Ms. Sweeney indicates that she is feeling well and denies any symptoms referable to elevated blood pressure. Specifically denies headache, chest pain, palpitations, dyspnea and peripheral edema. Patient denies any side effects of her medication(s) and is compliant with their regimen. She does not check BP's generally. Denisha denies regular aerobic exercise. She watches her diet for sodium, low fat and low cholesterol some of the time. Last 3 Encounter BP Readings: Date: BP: 12/04/2021 164/90 - João BP 147/79 08/16/2021 140/72 12/16/2020 126/76 REVIEW OF SYSTEMS General: no fevers, no chills, no night sweats, no recurrent infections, no change in appetite, no change in energy and no significant changes in weight Respiratory: no cough, no wheezing, no shortness of breath, no hemoptysis Cardiovascular: no chest pain, no chest pressure, no palpitations and no swelling GI: No nausea, vomiting, or diarrhea : No history of dysuria, frequency or incontinence Skin: Negative for lesions, rash, and itching Endocrine: no fatigue, no cold intolerance, no heat intolerance, no polyuria, no polyphagia and no polydipsia Neurologic: No headache, weakness, numbness, tingling, dizziness, syncope. CP PHQ9 12/04/2021 Little interest or pleasure 3 - Nearly every day Feeling down, depressed, hopeless 3 - Nearly every day Trouble falling or staying asleep, sleeping too much 0 - Not at all Feeling tired, having little energy 0 - Not at all Poor appetite or overeating 3 - Nearly every day Feeling bad about yourself, failure or you have let yourself/family down 3 - Nearly every day Trouble concentrating on things 0 - Not at all Moving or speaking so slowly, or fidgety or restless 0 - Not at all Thoughts that you would be better off , or of hurting yourself in some way 0 - Not at all How difficult have these problems made things Somewhat difficult Interpretation of Total Score 10-14 Moderate depression SHELBY-7 ANXIETY SCALE 12/04/2021 FEELING NERVOUS,ANXIOUS,OR ON EDGE 3 Nearly every day NOT BEING ABLE TO STOP OR CONTROL WORRYING 3 Nearly every day WORRYING TOO MUCH ABOUT DIFFERENT THINGS 3 Nearly every day TROUBLE RELAXING 3 Nearly every day BEING SO RESTLESS THAT IT'S HARD TO SIT STILL 0 Not at all sure BEING EASILY ANNOYED OR IRRITABLE 0 Not at all sure FEELING AFRAID IF SOMETHING AWFUL MIGHT HAPPEN 3 Nearly every day GAD7 SCORE 15 IF YOU CHECKED OFF ANY PROBLEMS Somewhat difficult PAST MEDICAL HISTORY Diagnosis Date Allergic purpura (HCC) Anxiety state, unspecified 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 Diverticulosis of colon (without mention of hemorrhage) Esophageal reflux Essential hypertension, benign Intestinal disaccharidase deficiencies and disaccharide malabsorption Personal history of colonic polyps Pure hypercholesterolemia PAST SURGICAL HISTORY Procedure Laterality Date COLONOSCOPY FLX DX W/COLLJ SPEC WHEN PFRMD 10/06/08 COLONOSCOPY W/BIOPSY SINGLE/MULTIPLE 07/20/05 DILATION & CURETTAGE DX&/THER NONOBSTETRIC 2005 Dilation & curettage HYSTEROSCOPY, DIAGNOSTIC (SEPARATE 2006 Hysteroscopy LIG/TRNSXJ FLP TUBE ABDL/VAG APPR UNI/BI Tubal ligation SKIN BX, 1 LESION on back was basal cell ca ALLERGIES Codeine, Latex, Naproxen Sodium, Sulfa (Sulfonamide Antibiotics), Eggs [Other], Lipitor [Atorvastatin], and Pravachol [Pravastatin] MEDICATIONS sertraline (ZOLOFT) 50 mg tablet Take 1 tablet by mouth once daily. amLODIPine (NORVASC) 5 mg tablet Take 1 tablet by mouth once daily. lisinopril (ZESTRIL, PRINIVIL) 40 mg tablet Take 1 tablet by mouth once daily. ergocalciferol(VITAMIN D 400 UNIT TAB) Take one(1) tablet daily. CALCIUM CARBONATE-VITAMIN D3 600 MG-200 UNIT CHEWABLE TAB Take one(1) tablet two(2) times daily. aspirin, enteric coated (ASPIR-81) 81 mg ORAL TbEC Take one(1) tablet daily. Multivitamin (DAILY MULTIPLE) ORAL Tab Take one(1) tablet daily. simvastatin (ZOCOR) 20 mg tablet Take 1 tablet by mouth daily at bedtime. Blood Pressure Monitor (BLOOD PRESSURE KIT) 1 Each once daily. FAMILY HISTORY Problem Relation Age of Onset Hypertension Mother Hypertension Father Cancer Mother unsure of kind Stroke Mother Social History Tobacco Use Smoking status: Never Smoker Smokeless tobacco: Never Used Vaping Use Vaping Use: Never used Substance Use Topics Alcohol use: No Drug use: No PHYSICAL EXAM BP 147/79 Pulse 76 Resp 16 Wt 68.9 kg (152 lb) BMI 28.72 kg/m General Appearance: well appearing, in no acute distress, alert Pysch: mood and affect broad and appropriate Skin: Skin color, texture, turgor normal for age; Eyes: conjunctiva pink and moist, no icterus, sclera white, non-injected Neck: Thyroid normal size and symmetric without palpable nodules, No adenopathy Lymph nodes: No cervical lymphadenopathy and No supraclavicular lymphadenopathy Lungs: Lungs clear to auscultation. No wheezing, rhonchi, rales. Heart: RRR without murmur, gallop, or rubs. No ectopy BUE Extremities: No deformities, edema, skin discoloration, clubbing or cyanosis. Good capillary refill. Health maintenance reviewed with patient: COVID-19 VACCINE(1) Never done BONE DENSITY Never done DTAP,TDAP,TD(1 - Tdap) due on 12/04/2022 SHINGRIX VACCINE(1 of 2) due on 12/04/2022 DIABETES SCREEN due on 11/09/2024 ADVANCE DIRECTIVE DISCUSSION Completed PNEUMOCOCCAL: 65+ Completed INFLUENZA Discontinued DATA REVIEWED: Most recent labs ASSESSMENT/PLAN: 1. Essential hypertension - ICD9: 401.9, ICD10: I10 (primary diagnosis) - suboptimal control - Continue current medication(s) - Encouraged dietary sodium restriction/DASH diet - Recommended regular exercise. - Recommend home blood pressure monitoring, to bring results in on next visit - Goal of BP <130/80 - patient to check BP at home and bring record of readings to nurse visit for BP check in 2 weeks. - Discussed with patient if she is unable to make it to the appointment to please call with home readings so we can increase amlodipine if indicated 2. Hyperlipidemia LDL goal <130 - ICD9: 272.4, ICD10: E78.5 - good control - Continue current medication. - Encouraged following a low fat, low cholesterol diet. - Discussed the benefits of regular aerobic exercise and weight loss. 3. Anxiety and depression - ICD9: 300.00, 311, ICD10: F41.9, F32.A - no controlled, will increase sertraline to 50 mg once daily - Reviewed concept of neurochemical imbalance wt depression/anxiety, treatment options and benefits of counseling in combination with medication. Also reviewed benefits of sleep hygeine, diet and exercise - Follow-up in 6 weeks or sooner as needed/ can be telephone or virtual if difficult to make it into office - Instructed patient to contact office or [id number] after-hours promptly should condition worsen or any new symptoms appear. - [facility] and after hours crisis line 4. Prediabetes - ICD9: 790.29, ICD10: R73.03 - A1c controlled at this time - start some form of low intensity exercise and minimizing simple sugars 5. Vitamin D deficiency - ICD9: 268.9, ICD10: E55.9 - normal, continue current Vitamin D supplement Prescription instructions reviewed with patient as applicable. Potential red flag symptoms discussed with the patient. Reviewed appropriate action plan to take if red flag symptoms occur. Patient agreeable to treatment plan. Mayelin Blair APRN.CNP documented in this encounter [facility] 11-06-2021 Miscellaneous Notes Patient notified. Fasting lab work ordered. Please let patient know. Thank you Mayelin Blair APRN.CNP Patient is calling to schedule lab appointment current order is only CBC. Please advise if additional labs need completed prior to next week visit on 11/14. Patient is wanting to complete labs on this week. documented in this encounter [facility] 08-16-2021 History of Present illness Narrative Welcome To Medicare Visit Medical B eligibility date age 63 Date of last exam none in the past year. PAST MEDICAL HISTORY Diagnosis Date Allergic purpura (HCC) Anxiety state, unspecified 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 Diverticulosis of colon (without mention of hemorrhage) Esophageal reflux Essential hypertension, benign Intestinal disaccharidase deficiencies and disaccharide malabsorption Personal history of colonic polyps Pure hypercholesterolemia PAST SURGICAL HISTORY Procedure Laterality Date COLONOSCOPY FLX DX W/COLLJ SPEC WHEN PFRMD 10/06/08 COLONOSCOPY W/BIOPSY SINGLE/MULTIPLE 07/20/05 DILATION & CURETTAGE DX&/THER NONOBSTETRIC 2005 Dilation & curettage HYSTEROSCOPY, DIAGNOSTIC (SEPARATE 2006 Hysteroscopy LIG/TRNSXJ FLP TUBE ABDL/VAG APPR UNI/BI Tubal ligation SKIN BX, 1 LESION on back was basal cell ca Codeine, Latex, Naproxen Sodium, Sulfa (Sulfonamide Antibiotics), Eggs [Other], Lipitor [Atorvastatin], and Pravachol [Pravastatin] Medications reviewed: Yes FAMILY HISTORY Problem Relation Age of Onset Hypertension Mother Hypertension Father Cancer Mother unsure of kind Stroke Mother SOCIAL HISTORY: Social History Tobacco Use Smoking status: Never Smoker Smokeless tobacco: Never Used Substance Use Topics Alcohol use: No Drug use: No Denisha gets minimal exercise, does not drive and does not have a place walk around her apartments in [place]. She has a tc and watches exercises on line. She watches her diet for sodium, low fat and low cholesterol most of the time. She tries to eat healthy. Does not eat much red meat or pork. Eating more of flat breads. She likes salads, does not eat them except 2 times a week. She did just recently start taking 1 a day vitamins, centrum. List of current specialists seen: Eye: she has not been to one for years. We discussed that she should see one End of Live Planning discussed including patients advanced directive wishes: she does not have a living will I am willing to follow Denisha's advanced directives. Yes. PHQ-2 / Depression screen She in the past two weeks denies having felt down, depressed, hopeless or with little interest or pleasure in doing things. Functional Ability/Safety Screen 1. Was the patient's timed Up and Go test unsteady or longer than 30 seconds? No 2. Does the patient need help with the phone, transportation, shopping,preparing meals, housework, laundry, medications or managing money? Yes she does not drive much. Her children take her shopping once a week. She cooks a little. Sometimes she has yogurt, cookies, crackers, fruits, she goes to her childrens home occasionally for dinner 3. Does your home have rugs in the hallway, lack of grab bars in the bathroom, lack of handrails on the stairs or have poor lighting? Yes, she has rugs, asked her to take away the rugs. Hearing Evaluation: hard of hearing and normal PHYSICAL EXAM BP 160/72 (BP Site: Left Arm, BP Position: Sitting, BP Cuff Size: Large Adult) Pulse 87 Temp 36.9 C (98.4 F) Resp 12 Ht 154.9 cm (5' 1 ) Wt 68 kg (150 lb) SpO2 95% BMI 28.34 kg/m Alert and oriented X 3: YES Body mass index is 28.34 kg/m . Visual acuity: OD: 20/80 OS: 20/ 70 OU: ASSESSMENT/PLAN: 80 year old female The following prevention plan was discussed during the office visit and provided to the patient: - Glaucoma screening - Lipid panel Shantal Duran MD documented in this encounter [facility] 08-16-2021 Nurse Note Vision exam with glass es on. Right eye:20 /70 Left eye : 20/50 documented in this encounter [facility] 08-14-2021 Miscellaneous Notes Patient reports having difficulty with transportation to appointments asking for orders for lab work to be done the same day as appointment. It is scheduled as a Wellness visit so I told her I didn't think it could be done same day but she didn't understand. Just letting office know prior to appointment on 08/16/2021 in case labs are ordered. Danette Palencia RN documented in this encounter [facility] documented as of this encounter (statuses as of 08/14/2021) [address] History of Past illness Narrative* Problem Noted Date Resolved Date Thrombocytopenia 12/18/2006 08/29/2018 Last Assessment & Plan: Recent platelets are normal Postmenopausal bleeding 05/21/2005 09/18/19 06 documented as of this encounter (statuses as of 08/16/2021) [address] History of Past illness Narrative* Problem Noted Date Resolved Date Thrombocytopenia 12/18/2006 08/29/2018 Last Assessment & Plan: Recent platelets are normal Postmenopausal bleeding 05/21/2005 09/18/19 06 documented as of this encounter (statuses as of 11/06/2021) [address] History of Past illness Narrative* Problem Noted Date Resolved Date Thrombocytopenia 12/18/2006 08/29/2018 Last Assessment & Plan: Recent platelets are normal Postmenopausal bleeding 05/21/2005 09/18/19 06 documented as of this encounter (statuses as of 12/04/2021) [address] History of Past illness Narrative* Problem Noted Date Resolved Date Thrombocytopenia 12/18/2006 08/29/2018 Last Assessment & Plan: Recent platelets are normal Postmenopausal bleeding 05/21/2005 09/18/19 06 documented as of this encounter (statuses as of 12/20/2021) [address] History of Past illness Narrative* Problem Noted Date Resolved Date Thrombocytopenia 12/18/2006 08/29/2018 Last Assessment & Plan: Recent platelets are normal Postmenopausal bleeding 05/21/2005 09/18/19 06 documented as of this encounter (statuses as of 01/15/2022) [address] History of Past illness Narrative* Problem Noted Date Resolved Date Thrombocytopenia 12/18/2006 08/29/2018 Last Assessment & Plan: Recent platelets are normal Postmenopausal bleeding 05/21/2005 09/18/19 06 documented as of this encounter (statuses as of 01/26/2022) [address] History of Past illness Narrative* Problem Noted Date Resolved Date Thrombocytopenia 12/18/2006 08/29/2018 Last Assessment & Plan: Recent platelets are normal Postmenopausal bleeding 05/21/2005 09/18/19 06 documented as of this encounter (statuses as of 04/23/2022) [address] History of Past illness Narrative* Problem Noted Date Resolved Date Thrombocytopenia 12/18/2006 08/29/2018 Last Assessment & Plan: Recent platelets are normal Postmenopausal bleeding 05/21/2005 09/18/19 06 documented as of this encounter (statuses as of 07/19/2022) [address] History of Past illness Narrative* Problem Noted Date Resolved Date Thrombocytopenia 12/18/2006 08/29/2018 Last Assessment & Plan: Recent platelets are normal Postmenopausal bleeding 05/21/2005 09/18/19 06 documented as of this encounter (statuses as of 07/26/2022) [address] History of Past illness Narrative* Problem Noted Date Resolved Date Thrombocytopenia 12/18/2006 08/29/2018 Last Assessment & Plan: Recent platelets are normal Postmenopausal bleeding 05/21/2005 09/18/19 06 documented as of this encounter (statuses as of 10/24/2022) [address] History of Past illness Narrative* Problem Noted Date Diagnosed Date Resolved Date Thrombocytopenia 12/18/2006 08/29/2018 Last Assessment & Plan: Recent platelets are normal Postmenopausal bleeding 05/21/200508/26 documented as of this encounter (statuses as of 01/23/2023) [address] History of Past illness Narrative* Problem Noted Date Diagnosed Date Resolved Date Thrombocytopenia 12/18/2006 08/29/2018 Last Assessment & Plan: Recent platelets are normal Postmenopausal bleeding 05/21/200508/26 documented as of this encounter (statuses as of 04/02/2023) [address] History of Past illness Narrative* Problem Noted Date Diagnosed Date Resolved Date Thrombocytopenia 12/18/2006 08/29/2018 Last Assessment & Plan: Recent platelets are normal Postmenopausal bleeding 05/21/200508/26 documented as of this encounter (statuses as of 04/17/2023) [facility] History of Past illness Narrative* Problem Noted Date Diagnosed Date Resolved Date Thrombocytopenia 12/18/2006 08/29/2018 Last Assessment & Plan: Recent platelets are normal Postmenopausal bleeding 05/21/200508/26 documented as of this encounter (statuses as of 04/26/2023) [facility] Diagnosis Medicare annual wellness visit, subsequent- Primary Routine general medical examination at a health care facility [facility] Diagnosis Elevated glucose- Primary Other abnormal glucose BENIGN HYPERTENSION Essential hypertension, benign Hyperlipidemia LDL goal <130 Other and unspecified hyperlipidemia Impaired fasting glucose Vitamin D deficiency Unspecified vitamin D deficiency [facility] Diagnosis Essential hypertension- Primary Unspecified essential hypertension Hyperlipidemia LDL goal <130 Other and unspecified hyperlipidemia Anxiety and depression Dysthymic disorder Prediabetes Other abnormal glucose Vitamin D deficiency Unspecified vitamin D deficiency [facility] Diagnosis BENIGN HYPERTENSION- Primary Essential hypertension, benign Medication monitoring encounter Encounter for therapeutic drug monitoring [facility] Diagnosis Essential hypertension- Primary Unspecified essential hypertension Prediabetes Other abnormal glucose Hyperlipidemia LDL goal <130 Other and unspecified hyperlipidemia [facility] Diagnosis Anxiety and depression- Primary Dysthymic disorder [facility] Medicare annual wellness visit, subsequent- Primary Routine general medical examination at a health care facility Essential hypertension Unspecified essential hypertension Anxiety and depression Dysthymic disorder Hyperlipidemia LDL goal <130 Other and unspecified hyperlipidemia Prediabetes Other abnormal glucose [facility] Diagnosis BENIGN HYPERTENSION- Primary Essential hypertension, benign [facility] Diagnosis BENIGN HYPERTENSION- Primary Essential hypertension, benign Anxiety and depression Dysthymic disorder Major depressive disorder, recurrent, in partial remission (HCC) Major depressive disorder, recurrent episode, in partial or unspecified remission documented in this encounter [facility] Summary Purpose Family History No Family History Records Found Advance Directives No Advanced Directives Records Found Additional Source Comments Source Comments (unrecognize d section and content) In the event this informatio n is protected by the Federal Confidentiality of Alcohol and Drug Abuse Patient Records regulations: The Federal rules restrict any use of the information to criminally investigate or prosecute any alcohol or drug abuse patient.[facility] the event this information is protected by the Federal Confidentiality of Alcohol and Drug Abuse Patient Records regulations: The Federal rules restrict any use of the information to criminally investigate or prosecute any alcohol or drug abuse patient.[facility] the event this information is protected by the Federal Confidentiality of Alcohol and Drug Abuse Patient Records regulations: The Federal rules restrict any use of the information to criminally investigate or prosecute any alcohol or drug abuse patient.[facility] the event this information is protected by the Federal Confidentiality of Alcohol and Drug Abuse Patient Records regulations: The Federal rules restrict any use of the information to criminally investigate or prosecute any alcohol or drug abuse patient.[facility] the event this information is protected by the Federal Confidentiality of Alcohol and Drug Abuse Patient Records regulations: The Federal rules restrict any use of the information to criminally investigate or prosecute any alcohol or drug abuse patient.[facility] the event this information is protected by the Federal Confidentiality of Alcohol and Drug Abuse Patient Records regulations: The Federal rules restrict any use of the information to criminally investigate or prosecute any alcohol or drug abuse patient.[facility] the event this information is protected by the Federal Confidentiality of Alcohol and Drug Abuse Patient Records regulations: The Federal rules restrict any use of the information to criminally investigate or prosecute any alcohol or drug abuse patient.[facility] the event this information is protected by the Federal Confidentiality of Alcohol and Drug Abuse Patient Records regulations: The Federal rules restrict any use of the information to criminally investigate or prosecute any alcohol or drug abuse patient.[facility] the event this information is protected by the Federal Confidentiality of Alcohol and Drug Abuse Patient Records regulations: The Federal rules restrict any use of the information to criminally investigate or prosecute any alcohol or drug abuse patient.[facility] the event this information is protected by the Federal Confidentiality of Alcohol and Drug Abuse Patient Records regulations: The Federal rules restrict any use of the information to criminally investigate or prosecute any alcohol or drug abuse patient.[facility] the event this information is protected by the Federal Confidentiality of Alcohol and Drug Abuse Patient Records regulations: The Federal rules restrict any use of the information to criminally investigate or prosecute any alcohol or drug abuse patient.[facility] the event this information is protected by the Federal Confidentiality of Alcohol and Drug Abuse Patient Records regulations: The Federal rules restrict any use of the information to criminally investigate or prosecute any alcohol or drug abuse patient.[facility] the event this information is protected by the Federal Confidentiality of Alcohol and Drug Abuse Patient Records regulations: The Federal rules restrict any use of the information to criminally investigate or prosecute any alcohol or drug abuse patient.[facility] the event this information is protected by the Federal Confidentiality of Alcohol and Drug Abuse Patient Records regulations: The Federal rules restrict any use of the information to criminally investigate or prosecute any alcohol or drug abuse patient.[facility] the event this information is protected by the Federal Confidentiality of Alcohol and Drug Abuse Patient Records regulations: The Federal rules restrict any use of the information to criminally investigate or prosecute any alcohol or drug abuse patient.[facility] Reason for Visit (unrecogniz ed section and content) Reason Comments Medicare Wellness Exam Medicare wellness exam Reason Comments Lab Orders Reason Comments Recheck 3 month HTN follow u p Reason Comments Blood Pressure Check Reason Comments Recheck 6 week medication fo llow up Reason Comments Results Reason Comments Recheck 3 month follow up Reason Comments Refill Request Reason Comments Recheck Medication follow up Reason Comments Medicare Wellness Exam Annual Medicare W ellness Reason Onset Date Comments Refill Request 04/01/2023 Reason Comments Orders Reason Comments F/U 6 months Care Teams (unrecognized sec tion and content) E Learning Designer Relationship Specialty Start Date End Date Shantal Duran MD [address] [place] [address] PCP - General Internal Medicine 02/17/15 E Learning Designer Relationship Specialty Start Date End Date Shantal Duran MD [address] [place] [address] PCP - General Internal Medicine 02/17/15 E Learning Designer Relationship Specialty Start Date End Date Shantal Duran MD [address] [place] [address] PCP - General Internal Medicine 02/17/15 E Learning Designer Relationship Specialty Start Date End Date Shantal Duran MD [address] [place] [address] PCP - General Internal Medicine 02/17/15 E Learning Designer Relationship Specialty Start Date End Date Shantal Duran MD [address] [place] [address] PCP - General Internal Medicine 02/17/15 E Learning Designer Relationship Specialty Start Date End Date Shantal Duran MD [address] [place] [address] PCP - General Internal Medicine 02/17/15 E Learning Designer Relationship Specialty Start Date End Date Shantal Duran MD [address] [place] [address] PCP - General Internal Medicine 02/17/15 E Learning Designer Relationship Specialty Start Date End Date Shantal Duran MD [address] [place] [address] PCP - General Internal Medicine 02/17/15 E Learning Designer Relationship Specialty Start Date End Date Shantal Duran MD [address] [place] [address] PCP - General Internal Medicine 02/17/15 E Learning Designer Relationship Specialty Start Date End Date Shantal Duran MD [address] [place] [address] PCP - General Internal Medicine 02/17/15 E Learning Designer Relationship Specialty Start Date End Date Shantal Duran MD [address] [facility] [place] [address] PCP - General Internal Medicine 02/17/15 E Learning Designer Relationship Specialty Start Date End Date Shantal Duran MD [address] [facility], [place] [id number] PCP - General Internal Medicine 02/17/15 INFORMATION SOURCE (unrecogn ized section and content) FOR RECORDS PERTAINING TO PATIENTS WHO ARE OR HAVE BEEN ENROLLED IN A CHEMICAL DEPENDENCY/SUBSTANCEABUSE PROGRAM, SOME INFORMATION MAY BE OMITTED. This clinical summary was aggregated from multiple sources. Caution should be exercised in using it in the provision of clinical care. This summary normalizes information from multiple sources, and as a consequence, information in this document may materially change the coding, format and clinical context of patient data. In addition, data may be omitted in some cases. CLINICAL DECISIONS SHOULD BE BASED ON THE PRIMARY CLINICAL RECORDS. [employer] provides no warranty or guarantee of the accuracy or completeness of information in this document.
--- NOTE | 2023-05-27 19:27 | RAD_ITS ---
EXAM: XR RIGHT WRIST COMPLETE, 3 OR MORE VIEWS CLINICAL INDICATION: trauma TECHNIQUE: Frontal, lateral and oblique views of the right wrist. COMPARISON: No relevant prior studies available. FINDINGS: BONES/JOINTS: Unremarkable. No acute fracture. No subluxation. Normal alignment. Preservation of the joint space. No sclerotic or destructive changes observed. SOFT TISSUES: Unremarkable. No soft tissue swelling or gas. No radiopaque foreign body. RAD/Wrist min 3 Views IMPRESSION: Negative right wrist x-rays. Electronically Signed: Manan Tong MD at 20:59 EST ,
[2023-05-27 20:43] VITALS: RESP 16
[2023-05-27] MEDS: Meclizine 12.5 MG Tablet PO (21:25)
== END 2023-05-27 21:32 | disposition home or self-care (01) ==
PROVIDERS: Emergency Provider Emergency Medicine; Visit Provider Emergency Medicine
DX: S06.0X0A Concussion without loss of consciousness, initial encounter (principal); E11.9 Type 2 diabetes mellitus without complications; S63.91XA Sprain of unspecified part of right wrist and hand, initial encounter; I10 Essential (primary) hypertension; E78.5 Hyperlipidemia, unspecified; W19.XXXA Unspecified fall, initial encounter
CPT/HCPCS: 70450; 70486; 72125; 73110; 99282

== ENCOUNTER 2024-02-29 20:14 | Inpatient (IN) | payer MEDICARE, SELFPAY ==
[2024-02-29 20:14] VITALS: BP 160/69; PULSE 89; RESP 12; TEMP 37.6; O2SAT 96; BMI 27.7
--- NOTE | 2024-02-29 20:25 | ED.VIS.FALL ---
HPI HPI - Fall History of Present Illness Chief Complaint: Fall PFSH PFS Medical History (Updated 03/01/24 @ 00:[address] Nila Nam MD) Diabetes mellitus, type 2 History of vertigo Anxiety and depression Compression fracture HTN (hypertension) Hyperlipidemia Home Medications ?Medication ?Instructions ?Recorded ?Last Taken ?Type amlodipine 5 mg tablet 5 mg PO DAILY ##60 11/30/14 Unknown Rx aspirin 81 mg chewable tablet 81 mg PO DAILY@0800 ##60 11/30/14 Unknown Rx atorvastatin 40 mg tablet 40 mg PO QHS ##60 11/30/14 Unknown Rx meclizine 25 mg tablet 25 mg PO TID PRN PRN Vertigo #20 11/30/14 Unknown Rx tabs sertraline 50 mg tablet 25 mg PO DAILY 02/29/24 Unknown History Allergy/AdvReac Type Severity Reaction Status Date / Time codeine Allergy Intermediate Rash Verified 05/27/23 18:44 latex Allergy Intermediate Rash Verified 05/27/23 18:44 Sulfa (Sulfonamide Allergy Intermediate Rash Verified 05/27/23 18:44 Antibiotics) Social History Smoking Status: Never smoker EXAM Physical Exam Const Vital Signs: 02/29/24 20:14 02/29/24 22:14 Temperature 99.6 F H Temperature Source Oral Pulse Rate 89 100 Respiratory Rate 12 22 H Blood Pressure 160/69 H 111/78 Blood Pressure Mean 99 89 Pulse Ox 96 98 Oxygen Delivery Method Room Air MDM MDM MDM Narrative Medical decision making narrative: HISTORY OF PRESENT ILLNESS: 83-year-old female presents with back pain and difficulty ambulating. She was brought in EMS and accompanied 2 sons. Per the patient's son the patient had a fall this past winter as well as in early summer (several months ago). This has caused significant back pain. The patient notes she lives at home alone. They note recent diagnosis of vertebral fracture after an x-ray 3 to 4 weeks ago. XR images were obtained by her PCP per family report. Reports back pain that is inhibiting her ability to ambulate secondary to pain. Reports she tried to get in bed early this evening but could not. Notes she lowered herself gently to her knees then to the floor where she was essentially stuck for approximately 3 hours. She denies any recent fever, difficulty urinating, abdominal pain, focal lower extremity weakness. No bowel or bladder incontinence. No saddle anesthesia. No history of back surgeries. No fevers. REVIEW OF SYSTEMS: Pertinent positives: Back pain, frequent falls Pertinent negatives: Fever, vomiting, chest pain, neck pain, headache, focal weakness, syncope PHYSICAL EXAM: Nursing triage notes reviewed, Vital signs reviewed Constitutional: please see mdm HENT: MMM Eyes: Pupils equal round and reactive to light, Extraocular muscles intact Neck: No stridor, no JVD, full neck ROM Lungs: Clear to auscultation, No wheezing or rales. No increased work of breathing, no conversational dyspnea, no accessory muscle use, no nasal flaring. No respiratory distress noted Heart: Regular rate and rhythm, No murmurs, No rubs and No gallops, 2+ distal pulses (radial, femoral, posterior tibial) in all extremities Abdomen: Soft, there is no tenderness, rigidity, rebound or guarding, no obvious peritoneal signs, no palpable pulsatile abdominal masses, no auscultated abdominal bruit : No CVAT Extremities: No edema Back: TTP over thoracolumbar junction and lower lumbar spine. No obvious step-offs or deformities. Neuro: Patient was alert, oriented to person place and time, neuroexam at baseline, moves all 4 extremities, sensation all 4 extremities, 2+ patellar reflexes, downgoing Babinski, intact sensation L1-S1 dermatomal distributions. Intact 5/5 strength in hip flexion (T12-L3). Knee extension (L2-L4). Ankle dorsiflexion (L4-L5). Ankle plantar flexion (S1). Great toe extension (L5). 2+ patellar and Achilles DTRs. Skin: No rash or lesions noted MEDICAL DECISION MAKING: Chief Complaint: Fall, frequent falls and back pain External records reviewed: Allergies reviewed, problems reviewed, medication reviewed, PDMP reviewed. No recent cardiology visits noted Factors affecting care: Vertebral fracture, posteriorly stroke, hypertension, hyperlipidemia and diabetes Social determinants of health: elderly History obtained from others: The patient's son Consults: Internal medicine (Dr. Nam) [facility] Narrative: The patient was initially hemodynamically stable, afebrile and nontoxic-appearing. Primary secondary trauma surveys with TTP over thoracic or lumbar junction. No focal neurologic deficits noted. I considered the following differential diagnosis: ICH, traumatic injury to the cervical thoracic or lumbar spine, rhabdomyolysis, UTI, SINDY, anemia, electrolyte disturbance, arrhythmia, myocardial ischemia I obtained a broad lab and imaging workup to further elucidate etiology of the patient's complaints. ALL IMAGES (IF OBTAINED) HAVE BEEN PERSONALLY REVIEWED AND INTERPRETED BY MYSELF. CT scan of the brain was negative for acute intracranial abnormality CT scan of the lumbar spine shows age-indeterminate compression fractures, most acute at T12. CT scan cervical spine shows no evidence of obvious fracture CT scan of the thoracic spine age-indeterminate T5 compression fracture as well as acute T12 compression fracture. I have personally reviewed the patient's chest x-ray. Chest x-ray is unremarkable for pulmonary edema, pneumothorax, pneumonia or focal cardiopulmonary abnormality. CBC with no leukocytosis, noted hemoconcentration consistent with dehydration, Urinalysis shows 3+ bacteria and leukocyte esterase will send for culture BMP without evidence of significant electrolyte abnormalities, no anion gap, no acute kidney injury. High-sensitivity troponin is negative, no evidence of myocardial ischemia CPK within normal limits evidence of rhabdomyolysis EKG with sinus tachycardia rate 104, normal axis, normal intervals, no STEMI The patient and/or family, caregivers express understanding. The patient and/or family, caregivers agrees with the plan. Shared decision making: I will have a discussion with the patient and or visitors regarding risk/benefits of further testing or admission. They will be made aware of of the risk/benefits inherent in this decision they will be given the opportunity to voice understanding. Total critical care time today provided was at least 0 minutes. This excludes separately billable procedures. Critical care time (if documented) is secondary to the patient having high probability of clinically significant/life threatening deterioration in the patient's condition which required my urgent intervention. Impression: 1. Fall 2. Vertebral compression fractures (T12, L2, L4 and L5) 3. Inability to ambulate Dispo: Admit to internal medicine This note was generated with [employer] dictation software. It may contain incorrect words, spelling, and punctuation that were not noted in review of the chart prior to signing. Lab Data Labs: Laboratory Results - last 24 hr 02/29/24 02/29/24 20:25 21:52 WBC 10.3 RBC 5.16 Hgb 15.6 H Hct 48.0 H MCV 93.0 MCH 30.2 MCHC 32.5 RDW Std Deviation 46.9 H RDW Coeff of Jeanette 13.7 Plt Count 164 MPV 11.6 Sodium 140 Potassium 3.9 Chloride 109 H Carbon Dioxide 26.0 Anion Gap 5 BUN 6 L Creatinine 0.66 Estim Creat Clear Calc 46.70 Est GFR (MDRD) Af Amer 110 Est GFR (MDRD) Non-Af 91 BUN/Creatinine Ratio 9.1 L Glucose 149 H Calcium 8.7 Total Creatine Kinase 43 Troponin I High Sens 9 Urine Color Yellow Urine Clarity Cloudy Urine pH 8.0 Ur Specific Prospect 1.015 Urine Protein 15 H Urine Glucose (UA) Normal Urine Ketones 5 H Urine Occult Blood 25 H Urine Nitrite Negative Urine Bilirubin Negative Urine Urobilinogen Normal Ur Leukocyte Esterase 100 H Urine RBC 0-5 SEEN Urine WBC 10-25 SEEN Ur Squamous Epith Cells 0-5 SEEN Urine Bacteria 3+ Urine Mucus 0 SEEN Radiography Diagnostic Testing: Clinical Impression(s) from Imaging Studies Brain CT 02/29/24 21:43 IMPRESSION: No acute disease Electronically Signed: Fredi Suazo MD at 23:35 EDT Reading Location ID and State: [address] [place] [address] Tel , Service support , Lumbar Spine CT 02/29/24 21:43 IMPRESSION: Multiple pathologic compression fractures at all levels, age indeterminate. The T12 fracture appears relatively acute and demonstrates slight retropulsion. Recommend MRI with and without IV contrast. Electronically Signed: Fredi Suazo MD at 23:41 EDT Reading Location ID and State: [facility] [place] Tel , Service support , Chest X-Ray 02/29/24 22:08 IMPRESSION: Normal x-ray examination of the chest. Electronically Signed: Fredi Suazo MD at 23:28 EDT Reading Location ID and State: [facility] [place] Tel , Service support , Discharge Plan Triage Chief Complaint: Fall ED Provider: Oscar Vizcaino Dx/Rx/DC Orders Prescriptions: No Action atorvastatin 40 MG tablet 40 mg PO QHS Qty: 60 0RF Patient Comments: cholesterol amlodipine 5 MG tablet 5 mg PO DAILY Qty: 60 0RF Patient Comments: heart/blood pressure aspirin 81 MG tablet,chewable 81 mg PO DAILY@0800 Qty: 60 0RF Patient Comments: heart health meclizine 25 MG tablet 25 mg PO TID PRN PRN (Reason: Vertigo) Qty: 20 0RF Patient Comments: dizziness sertraline 50 mg tablet 25 mg PO DAILY Primary Care Provider: Shantal Bobby Referrals: Care Physician,No Primary [Non-Staff] - Print Language: Norwegian
--- NOTE | 2024-02-29 20:55 | CM.ED ---
Social Work: Date of referral: 02/29/2024 Reason for referral: Fall/Increase in frequency of falls. Referred by: Social Work Identification Patient provided consent to Social Work Visit. Patient's son Tao was present and later in the visit, patient's son Lei was present. Patient reported feeling like a recent change in medications have contributed to increased in falls. Patient's son Tao reported patient has Vertigo which has made patient dizzy at times where she's fallen backwards. On this date, patient was trying to get into bed and thought she was all the way on the bed however due to the egg crate on the bed, suffered a fall at which point patient fell to her knees and was then laying on the floor where she remained for 3 hours. Patient complaining of back pain and upon examination by the ED doctor, was not able to transition from a laying to sitting position without a great deal of pain and needed to be laid back down quickly.. Patient lives alone and is without pets. Patient has a daughter who resides in [place] who is a retired nurse who is trying to get patient to move in with her so patient can have around the clock care. Patient stated she doesn't want to move to [place] because she doesn't like the heat. clerical and administrative workers talked with patient about the possibility of a SNF placement until patient is able to return to her own home safely. Patient recently diagnosed with a recent vertebral fracture. In patient's current condition, it would appear that patient would not be able to stand independently to get in and out of bed, compete transfers, ambulate, get to and from the bathroom, prepare meals, get dressed, shower or get out of the house safely should there be an emergency. Patient stated she would be fine going to a residential facility should that be determined to be a need upon discharge. Patient's sons in agreement. clerical and administrative workers provided patient's sons with information on fall prevention education as well as providers for Emergency Response Devices with fall detection. clerical and administrative workers also recommended bed rails for bed at whatever point patient returns home as well as information on Home Health Aides. No other needs/concerns noted at this time. Ayla Arreola, [employer], OPERATING ENGINEER
--- NOTE | 2024-02-29 21:43 | CT_ITS ---
STUDY: CT BRAIN WITHOUT CONTRAST REASON FOR EXAM: Female, 83 years old. fall, head trauma RADIATION DOSAGE (If Supplied By Facility): CTDIvol = ( 44.99 ) mGy, DLP = ( 832.67 ) mGycm TECHNIQUE: Transaxial CT imaging of the brain was performed without administration of intravenous contrast material. Individualized dose optimization techniques were used for this CT. The protocol utilizes one or more of the following dose reduction techniques: automated exposure control, adjustment of mA and/or kV according to patient size,and/or use of iterative reconstruction technique. COMPARISON: May 27, 2023 FINDINGS: Normal soft tissue structures. Normal calvarium. There is moderate cerebral atrophy with widening of the extra-axial spaces and ventricular dilatation. There are areas of decreased attenuation within the white matter tracts of the supratentorial brain, consistent with microvascular disease changes. Normal basal ganglia and thalami. Normal brainstem. Normal cerebellum. Intracranial atherosclerosis. There is no intracranial hemorrhage. There are no findings of an acute ischemic infarction. Normal visualized paranasal sinuses. CT/Brain/Head without Contrast IMPRESSION: No acute disease Electronically Signed: Fredi Suazo MD at 23:35 EDT ,
--- NOTE | 2024-02-29 21:43 | CT_ITS ---
STUDY: CT CERVICAL SPINE WITHOUT CONTRAST REASON FOR EXAM: Female, 83 years old. fall, neck pain RADIATION DOSAGE (If Supplied By Facility): CTDIvol = ( 15.74 ) mGy, DLP = ( 329.17 ) mGycm TECHNIQUE: High resolution transaxial imaging was performed without contrast material. Sagittal and coronal images were reconstructed. Individualized dose optimization techniques were used for this CT. The protocol utilizes one or more of the following dose reduction techniques: automated exposure control, adjustment of mA and/or kV according to patient size,and/or use of iterative reconstruction technique. COMPARISON: CT cervical spine October 26, 2023 FINDINGS: Normal craniovertebral junction. Normal anterior atlantoaxial articulation. Normal odontoid process. Normal cervical lordosis. Normal vertebral bodies and posterior osseous elements. C2-3: Normal endplates. Normal disc height and morphology. Normal central canal and intervertebral neuroforamina. C3-4: Normal endplates. Normal disc height and morphology. Normal central canal and narrowed left intervertebral neuroforamina. C4-5: Normal endplates. Normal disc height and morphology. Normal central canal and left intervertebral neuroforamina. C5-6: Disc space narrowing. Marginal osteophytosis. Moderate bilateral neural foraminal narrowing. Central canal patent. C6-7: Normal endplates. Normal disc height and morphology. Normal central canal and intervertebral neuroforamina. C7-T1: Normal endplates. Normal disc height and morphology. Normal central canal and intervertebral neuroforamina. Normal visualized soft tissue structures. CT/Spine Cervical without Contras IMPRESSION: No fracture Electronically Signed: Fredi Suazo MD at 23:55 EDT ,
--- NOTE | 2024-02-29 21:43 | CT_ITS ---
STUDY: CT LUMBAR SPINE WITHOUT CONTRAST REASON FOR EXAM: Female, 83 years old. back pain RADIATION DOSAGE (If Supplied By Facility): CTDIvol = ( 21.37 ) mGy, DLP = ( 807.91 ) mGycm TECHNIQUE: The patient was scanned in a multi detector CT scanner. High resolution transaxial imaging was performed. Images were obtained from thoracic to sacrum. Sagittal and coronal images were reconstructed. Individualized dose optimization techniques were used for this CT. The protocol utilizes one or more of the following dose reduction techniques: automated exposure control, adjustment of mA and/or kV according to patient size,and/or use of iterative reconstruction technique. COMPARISON: None FINDINGS: Normal lumbar lordosis. There is no substantial scoliosis. Diffuse demineralization. Compression fractures and diffuse sclerosis T12, L2, L4 and L5. Slight retropulsion at T12. Mild compression fractures are also noted at L1 and L3 as well. Normal vertebrae of the lumbar spine. L1-2: Normal endplates. Normal disc height and morphology. Normal bilateral facet joints. Normal central canal and bilateral lateral recesses. Normal bilateral intervertebral neural foramina. L2-3: Normal endplates. Normal disc height and morphology. Normal bilateral facet joints. Normal central canal and bilateral lateral recesses. Normal bilateral intervertebral neural foramina. L3-4: Normal endplates. Normal disc height and morphology. Normal bilateral facet joints. Normal central canal and bilateral lateral recesses. Normal bilateral intervertebral neural foramina. Splaying of the spinous processes with pseudoarticulation. L4-5: Normal endplates. Normal disc height and morphology. Normal bilateral facet joints. Normal central canal and bilateral lateral recesses. Normal bilateral intervertebral neural foramina. Splaying of the spinous processes with pseudoarticulation. L5-S1: Normal endplates. Normal disc height and morphology. Hypertrophic bilateral facet joints. Normal central canal and bilateral lateral recesses. Normal bilateral intervertebral neural foramina. Splaying of the spinous processes with pseudoarticulation. Normal visualized paraspinous soft tissue structures. CT/Spine Lumbar without Contrast IMPRESSION: Multiple pathologic compression fractures at all levels, age indeterminate. The T12 fracture appears relatively acute and demonstrates slight retropulsion. Recommend MRI with and without IV contrast. Electronically Signed: Fredi Suazo MD at 23:41 EDT ,
--- NOTE | 2024-02-29 21:43 | CT_ITS ---
STUDY: CT THORACIC SPINE WITHOUT CONTRAST REASON FOR EXAM: Female, 83 years old. back pain RADIATION DOSAGE (If Supplied By Facility): CTDIvol = ( 18.67 ) mGy, DLP = ( 640.27 ) mGycm TECHNIQUE: The patient was scanned in a multi detector CT scanner. High resolution imaging was performed. Images were obtained from cervical to lumbar. Sagittal and coronal images were reconstructed. Individualized dose optimization techniques were used for this CT. The protocol utilizes one or more of the following dose reduction techniques: automated exposure control, adjustment of mA and/or kV according to patient size,and/or use of iterative reconstruction technique. COMPARISON: None FINDINGS: Mild scoliosis. Normal visualized cervical spine. Diffuse demineralization. Mild compression fracture T5. Age indeterminate. Irregular sclerosis and Moderate acute compression fracture T12 with slight retropulsion and spinal stenosis. This appears to involve the pedicle on the right. L2 fracture incompletely imaged at the edge of the field of view. Normal kyphosis of the thoracic spine. There is no substantial scoliosis. Normal thoracic vertebrae and endplates. Normal disc spaces heights. The soft tissue structures are unremarkable. CT/Spine Thoracic without Contras IMPRESSION: Mild compression fracture T5, age indeterminate. Acute pathologic compression fracture T12 involving the pedicle on the right and therefore possibly unstable. Compression fracture L2 incompletely imaged at the edge of the field of view. See also CT lumbar spine from today. Recommend MRI thoracic spine with and without IV contrast. Electronically Signed: Fredi Suazo MD at 0:05 EDT ,
[2024-02-29 21:53] LABS: Hemoglobin 15.6 g/dL (12.0-15.0); Mean Corp Hgb Conc 32.5 g/dL (32-36); Mean Corpuscular Hgb 30.2 pg (27.0-32.0); Mean Platelet Vol. 11.6 fl (6.2-12.0); Platelet Count 164 K/mm3 (150-450); RBC Distribution Width CV 13.7 % (11.6-14.6); RBC Distribution Width SD 46.9 fl (35.1-43.9); Red Blood Count 5.16 M/mm3 (4.2-5.4); White Blood Count 10.3 K/mm3 (4.4-11.0)
[2024-02-29 21:59] LABS: Mucous, Urine 0 SEEN /hpf (<or=2+)
[2024-02-29 22:05] LABS: Color, Urine Yellow (Yellow); Glucose, Dipstick Normal (Normal); Ketone-Dipstick 5 mg/dl (Negative); Leukocyte Esterase-Dipstick 100 /ul (Negative); Nitrite-Dipstick Negative (Negative); Occult Blood-Urine 25 /ul (Negative); Protein-Dipstick 15 mg/dl (Negative); Specific Gravity, Urine 1.015 (1.002-1.030); Urine Bilirubin Dipstick Negative (Negative); Urine Clarity Cloudy (Clear); Urine Urobilinogen Normal (Normal)
--- NOTE | 2024-02-29 22:08 | RAD_ITS ---
STUDY: X-RAY CHEST REASON FOR EXAM: Female, 83 years old. weakness fall TECHNIQUE: Single frontal view of the chest. COMPARISON: November 28, 2014 FINDINGS: The lungs are clear and expanded. There is no demonstrated pleural abnormality. Normal size heart. Normal mediastinum and corina. Normal visualized pulmonary arteries. Normal visualized aortic arch and descending thoracic aorta. Normal visualized thoracic spine. Normal visualized ribs, clavicles, and shoulders. There is no demonstrated abnormality of the visualized soft tissue structures of the upper abdomen. RAD/Chest 1 View (Portable) IMPRESSION: Normal x-ray examination of the chest. Electronically Signed: Fredi Suazo MD at 23:28 EDT ,
[2024-02-29 22:12] LABS: Bacteria 3+ /hpf (None Seen)
[2024-02-29 22:13] LABS: Red Blood Cells-Urine 0-5 SEEN /hpf (0-5)
[2024-02-29 22:14] VITALS: BP 111/78; PULSE 100; RESP 22; O2SAT 98
[2024-02-29 22:14] LABS: White Blood Cells 10-25 SEEN /hpf (0-5)
[2024-02-29 22:15] LABS: Squamous Epithelial Cells - UA 0-5 SEEN /hpf (5-10)
[2024-02-29 22:16] LABS: Anion Gap 5 (5-15); BUN 6 mg/dL (7-18); BUN/Creat Ratio 9.1 RATIO (10-20); Calcium,Total 8.7 mg/dL (8.5-10.1); Chloride 109 mmol/L (98-107); Creatinine, Serum 0.66 mg/dL (0.55-1.02); EST Glomerular Filtration Rate 91 mL/min (>60); Est Glom Filt Rate - Afr Amer 110 mL/min (>60); Glucose 149 mg/dL (74-106); Potassium 3.9 mmol/L (3.5-5.1); Sodium Level 140 mmol/L (136-145); Troponin-I HS 9 pg/mL (3.0-54.0)
[2024-02-29] MEDS: Morphine 2 MG/ML Syringe IV (22:41)
[2024-02-29 23:33] LABS: CPK Total, Creatine Kinase 43 U/L (26-192)
[2024-02-29 23:56] VITALS: BP 141/62; PULSE 98; RESP 18; TEMP 36.6; O2SAT 98
[2024-03-01] VITALS (7 sets, daily range): BP systolic 99–153; BP diastolic 57–92; PULSE 83–107; RESP 15–22; TEMP 37.1–37.7; O2SAT 95–98; BMI 24.2
--- NOTE | 2024-03-01 00:31 | PCM.HP.STD ---
HPI - General General Date of Admission: 03/01/24 Date of Service: 03/01/24 Chief Complaint: Back pain HPI Narrative The patient is an 83 y/o F w/ PMHx: HTN, HLD, Diabetes mellitus type II, Anxiety and Depression, Hx BPPV who presents to the [facility] ED on 03/01/24 with history of frequent falls living at home alone with a recent fall 3 to 4 weeks prior with reportedly some type of vertebral fracture at that point with ongoing persistent difficulties ambulating and taking care of herself prompting her 2 sons to bring her in as on day of presentation she could not even get out of bed and slid to the floor where she stayed for approximately 3 hours until they found her prompting transition to the ED for evaluation. Patient notes her pain is improved at rest currently and since ED pain regimen, worse if she moves about the bed currently rating it 3 out of 10 in severity, aching throbbing currently. She notes it is more sharp if she is active. Workup in the ED included T99.6 Orally with most recent repeat T78.8, heart rate 89, BP 160/69, respiratory rate 12, 96% room air, CBC with WC 10.3, hemoglobin 15.6, platelet 164 without differential, BMP with chloride 109, BUN/creatinine 6/0.66, GFR 91, glucose 149, total creatinine kinase 43, troponin 9, urinalysis with nitrite negative, leukocyte esterase 100 with urine WBCs 10-25 with 3+ urine bacteria, urine culture pending per ED, CT of the brain with no acute intracranial findings, CT cervical spine with no acute fracture, CT lumbar spine with multiple pathologic compression fractures at all levels age-indeterminate however there is a T12 fracture that appears relatively acute and demonstrates slight retropulsion, CT thoracic spine with mild compression fracture T5 age-indeterminate, acute pathologic compression fracture T12 involving the pedicle on the right and possibly therefore potentially unstable, compression fracture L2 incompletely imaged at the edge of the [id number], chest x-ray with no acute cardiopulmonary findings, EKG with sinus tachycardia with no acute evidence of ischemia. [facility] Medical History (Updated 03/01/24 @ 00:[address] Nila Nam MD) Diabetes mellitus, type 2 History of vertigo Anxiety and depression Compression fracture HTN (hypertension) Hyperlipidemia Home Medications ?Medication ?Instructions ?Recorded ?Last Taken ?Type amlodipine 5 mg tablet 5 mg PO DAILY ##60 11/30/14 Unknown Rx aspirin 81 mg chewable tablet 81 mg PO DAILY@0800 ##60 11/30/14 Unknown Rx atorvastatin 40 mg tablet 40 mg PO QHS ##60 11/30/14 Unknown Rx meclizine 25 mg tablet 25 mg PO TID PRN PRN Vertigo #20 11/30/14 Unknown Rx tabs sertraline 50 mg tablet 25 mg PO DAILY 02/29/24 Unknown History Allergy/AdvReac Type Severity Reaction Status Date / Time codeine Allergy Intermediate Rash Verified 05/27/23 18:44 latex Allergy Intermediate Rash Verified 05/27/23 18:44 Sulfa (Sulfonamide Allergy Intermediate Rash Verified 05/27/23 18:44 Antibiotics) no significant family history (Patient denies any marked maternal/paternal family history including HD, CM, CA but notes they took medications but she is uncertain for what disease process.) Surgical History (Updated 03/01/24 @ 01:[address] Nila Nam MD) History of dental surgery Social History (Updated 03/01/24 @ 01:[address] Nila Nam MD) household members: none Smoking Status: Never smoker alcohol intake: never substance use type: does not use ROS ROS Narrative Admission Review of Systems: CONSTITUTIONAL: No weight loss, fever, chills, + weakness or fatigue. HEENT: Eyes: No visual loss, blurred vision, double vision or yellow sclerae. Ears, Nose, Throat: No hearing loss, sneezing, congestion, runny nose or sore throat. SKIN: No rash or itching, lesions, wounds. CARDIOVASCULAR: No chest pain, chest pressure or chest discomfort, palpitations, edema, orthopnea, syncopal events. RESPIRATORY: No shortness of breath, cough or sputum, wheezing, hemoptysis. GASTROINTESTINAL: No anorexia, nausea, vomiting or diarrhea, abdominal pain, melena, BRBPR. GENITOURINARY: No dysuria, frequency, urgency or retention. NEUROLOGICAL: + Frequent falls, debility. No headache, dizziness, syncope, paralysis, ataxia, numbness or tingling in the extremities, focal weakness, change in bowel or bladder control, seizure. MUSCULOSKELETAL: + muscle, back pain, joint pain or stiffness. HEMATOLOGIC: No anemia, bleeding or bruising. LYMPHATICS: No enlarged nodes. No history of splenectomy. PSYCHIATRIC: + History anxiety and depression. ENDOCRINOLOGIC: No reports of sweating, cold or heat intolerance. No polyuria or polydipsia. ALLERGIES: No history of asthma, hives, eczema or rhinitis. Vital Signs Vital Signs Vital Signs: 02/29/24 20:14 02/29/24 22:14 02/29/24 23:56 Temperature 99.6 F H 97.8 F Temperature Source Oral Temporal Pulse Rate 89 100 98 Respiratory Rate 12 22 H 18 Blood Pressure 160/69 H 111/78 141/62 H Blood Pressure Mean 99 89 88 Pulse Ox 96 98 98 Oxygen Delivery Method Room Air Room Air 03/01/24 00:08 Temperature Temperature Source Pulse Rate 107 H Respiratory Rate 19 H Blood Pressure 139/72 H Blood Pressure Mean 94 Pulse Ox 97 Oxygen Delivery Method Room Air Weight Weight: 151 lb 7.321 oz Body Mass Index (BMI) 27.7 Physical Exam Narrative Physical Examination: General: Awake, alert, oriented x 3 and cooperative, seated upright in the ED bed, fatigued otherwise no acute distress, notes pain is improved at rest currently. Skin: Normal color, normal turgor, no icterus, no cyanosis except occasional stage ecchymoses, abrasions. HEENT: AT/NC, EOMI, PERRLA, MMM, no carotid bruits or JVD noted. Lungs: Mildly diminished, greater bases, mildly increased respiratory rate but no distress, o rales, ronchi or wheezing. Heart: Mildly tachycardic with regular rhythm; no gallop, rub audible. Abdomen: Soft, NTTP, ND, mildly hyperactive BS, no appreciated HSM. Extremities: No cyanosis, clubbing, or edema. Neurological: Patient awake, alert, oriented as noted, cognitive function intact; pupils equally reactive to light and accommodation, cranial nerves grossly normal, moving all 4 extremities, no focal deficits, strength moderately to severely global decreased secondary to intractable back pain primarily at this point worsened by movement in the bed, inability to straight leg raise, no specific pain with paraspinous palpation or palpation along the spine. Psychiatric: Affect appears fatigued, no acute evidence of depressive or anxiety feelings but does have underlying history. Results Lab / Micro Data 02/29/24 20:25 02/29/24 20:25 Labs: Laboratory Results - last 24 hr 02/29/24 20:25: WBC 10.3, RBC 5.16, Hgb 15.6 H, Hct 48.0 H, MCV 93.0, MCH 30.2, MCHC 32.5, RDW Std Deviation 46.9 H, RDW Coeff of Jeanette 13.7, Plt Count 164, MPV 11.6, Sodium 140, Potassium 3.9, Chloride 109 H, Carbon Dioxide 26.0, Anion Gap 5, BUN 6 L, Creatinine 0.66, Estim Creat Clear Calc 46.70, Est GFR (MDRD) Af Amer 110, Est GFR (MDRD) Non-Af 91, BUN/Creatinine Ratio 9.1 L, Glucose 149 H, Calcium 8.7, Total Creatine Kinase 43, Troponin I High Sens 9 02/29/24 21:52: Urine Color Yellow, Urine Clarity Cloudy, Urine pH 8.0, Ur Specific [place] 1.015, Urine Protein 15 H, Urine Glucose (UA) Normal, Urine Ketones 5 H, Urine Occult Blood 25 H, Urine Nitrite Negative, Urine Bilirubin Negative, Urine Urobilinogen Normal, Ur Leukocyte Esterase 100 H, Urine RBC 0-5 SEEN, Urine WBC 10-25 SEEN, Ur Squamous Epith Cells 0-5 SEEN, Urine Bacteria 3+, Urine Mucus 0 SEEN Imaging Radiology Impression Brain CT 02/29/24 21:43 IMPRESSION: No acute disease Electronically Signed: Fredi Suazo MD at 23:35 EDT Reading Location ID and State: [address] [place] [address] Tel , Service support , Cervical Spine CT 02/29/24 21:43 IMPRESSION: No fracture Electronically Signed: Fredi Suazo MD at 23:55 EDT Reading Location ID and State: [facility] / [place] Tel , Service support , Lumbar Spine CT 02/29/24 21:43 IMPRESSION: Multiple pathologic compression fractures at all levels, age indeterminate. The T12 fracture appears relatively acute and demonstrates slight retropulsion. Recommend MRI with and without IV contrast. Electronically Signed: Fredi Suazo MD at 23:41 EDT Reading Location ID and State: [address] [place] [address] Tel , Service support , Thoracic Spine CT 02/29/24 21:43 IMPRESSION: Mild compression fracture T5, age indeterminate. Acute pathologic compression fracture T12 involving the pedicle on the right and therefore possibly unstable. Compression fracture L2 incompletely imaged at the edge of the field of view. See also CT lumbar spine from today. Recommend MRI thoracic spine with and without IV contrast. Electronically Signed: Fredi Suazo MD at 0:05 EDT , Chest X-Ray 02/29/24 22:08 IMPRESSION: Normal x-ray examination of the chest. Electronically Signed: Fredi Suazo MD at 23:28 EDT Reading Location ID and State: [facility] / [place] Tel , Service support , Assessment & Plan Assessment/Plan (1) Intractable back pain: PLAN: Plan The patient is an 83 y/o F w/ PMHx: HTN, HLD, Diabetes mellitus type II, Anxiety and Depression, Hx BPPV who presents to the [facility] ED on 03/01/24 with history of frequent falls living at home alone with a recent fall 3 to 4 weeks prior with reportedly some type of vertebral fracture at that point with ongoing persistent difficulties ambulating and taking care of herself prompting her 2 sons to bring her in as on day of presentation she could not even get out of bed and slid to the floor where she stayed for approximately 3 hours until they found her prompting transition to the ED for evaluation. #1. Acute Intractable Back Pain with frequent mechanical falls with multiple pathologic compression fractures age-indeterminate however appearance of a new T12 fracture with slight retropulsion also involving the pedicle on the right with concern for possible instability and recent prior falls w/ reportedly Lumbar compression known fractures: Will admit to [facility], maintain on fall precautions, frequent positioning, initiate judicious low dose IV toradol given age, lidocaine patches, low dose gabapentin, po/IV narcotic pain regimen only as needed, anti-emetics, bowel regimen. Will obtain MRI thoracic and lumbar spine and pending these findings may require Orthospine versus pain management involvement. PT/OT/CM consultations for discharge planning with placement needs at this time evident. #2. Questionable Acute Complicated Urinary Tract Infection: UA upon ED evaluation remarkable, pending UCx, will monitor I/Os, will initiate IV Rocephin given significant frequent falls and debility is certainly could be contributing and at her age she might not be as markedly symptomatic aside weakness, we will transition transition as able pending sensitivities and speciation versus de-escalation if urine cultures not marked appearing. #3. Anxiety and depression: We will continue patient on sertraline regimen. #4. Diabetes mellitus type II: Clarifying but current list does not have any diabetic medication, admission glucose 149, will obtain hemoglobin A1c and in the interim will maintain on ADA diet, accu checks w/ ISS. #5. Hypertension: Continue home regimen including amlodipine, PRN hydralazine. #6. Hyperlipidemia: We will continue patient on statin therapy. #7. History BPPV: Patient with previous workup for possible posterior circulation stroke because of vertigo however MRI was negative, uses meclizine as needed. #8. DVT prophylaxis: Lovenox. #9. CODE status: Patient does not have healthcare power of senior trial attorney or living will but she notes her son and daughter would be her medical decision makers if necessary. Discussed CODE status at length including difference between FULL code, DNR-CCA and DNR-CC status. Following discussions about the differences in these status, requested Full Code status. Advanced Care Planning Face to Face Time: 16 minutes. Charges/Coding Visit Charges Inpatient E&M: 48140 Init Hosp L2 Procedures Hospitalists Procedures: 19730 Advncd Care Plan 30 Min
[2024-03-01] MEDS: 0.9% Normal Saline (1000mL) 1,000 ML 100 ML IV (01:51)
[2024-03-01] MEDS: Ketorolac 15 MG/ML Vial IV ×4 (01:52→22:26)
[2024-03-01] MEDS: Gabapentin 100 MG Capsule PO ×4 (01:53→17:52)
[2024-03-01] MEDS: Ceftriaxone 1 GM/50 ML BAG IV ×2 (02:33→21:08)
[2024-03-01 06:52] LABS: Bedside Glucose 110 mg/dL (74-106)
[2024-03-01 07:20] LABS: Absolute Neutrophil Count 5.6 X10^3/uL (2.0-7.7); Basophil# 0.05 X10^3/uL; Basophil% 0.7 % (0-1); Eosinophil# 0.02 X10^3/uL; Eosinophils% 0.3 % (0-5); Hematocrit 41.3 % (37-47); Hemoglobin 13.3 g/dL (12.0-15.0); Mean Corp Hgb Conc 32.2 g/dL (32-36); Mean Corpuscular Volume 93.2 fL (81-99); Mean Platelet Vol. 11.3 fl (6.2-12.0); Monocyte# 0.65 X10^3/uL; Monocyte% 9.3 % (0-10); NRBC Flagged by Analyzer 0 % (0-5); Neutrophil # 5.56 X10^3/uL (2.7-7.7); Neutrophil % 79.3 % (47-70); Platelet Count 147 K/mm3 (150-450); RBC Distribution Width CV 13.8 % (11.6-14.6); RBC Distribution Width SD 47.6 fl (35.1-43.9); Red Blood Count 4.43 M/mm3 (4.2-5.4)
--- NOTE | 2024-03-01 07:40 | PN.HOSP_ITS ---
Hospitalist Note 83-year-old female was admitted with history of back pain, difficulty ambulating and recurrent frequent falls. She had fall past winter in early summer several months ago does cause significant back pain. She lives at home. She was diagnosed with vertebral fracture after an x-ray 3 to 4 weeks ago obtained by PCP. This time she tried to get in the bed on the evening of the admission but could not therefore lowered herself to the knees and was stuck for 3 hours. H&P reviewed. Labs reviewed. Potassium 3.5. Replaced. Liver chemistry ALT AST total bilirubin normal. ALP 174. CK 43. Alkaline phosphatase may be elevated from bony origin Laboratory Results 02/29/24 20:25: WBC 10.3, RBC 5.16, Hgb 15.6 H, Hct 48.0 H, MCV 93.0, MCH 30.2, MCHC 32.5, RDW Std Deviation 46.9 H, RDW Coeff of Jeanette 13.7, Plt Count 164, MPV 11.6, Sodium 140, Potassium 3.9, Chloride 109 H, Carbon Dioxide 26.0, Anion Gap 5, BUN 6 L, Creatinine 0.66, Estim Creat Clear Calc 46.70, Est GFR (MDRD) Af Amer 110, Est GFR (MDRD) Non-Af 91, BUN/Creatinine Ratio 9.1 L, Glucose 149 H, Calcium 8.7, Total Creatine Kinase 43, Troponin I High Sens 9 02/29/24 21:52: Urine Color Yellow, Urine Clarity Cloudy, Urine pH 8.0, Ur Specific [place] 1.015, Urine Protein 15 H, Urine Glucose (UA) Normal, Urine Ket ones 5 H, Urine Occult Blood 25 H, Urine Nitrite Negative, Urine Bilirubin Negative, Urine Urobilinogen Normal, Ur Leukocyte Esterase 100 H, Urine RBC 0-5 SEEN, Urine WBC 10-25 SEEN, Ur Squamous Epith Cells 0-5 SEEN, Urine Bacteria 3+, Urine Mucus 0 SEEN 03/01/24 06:15: WBC 7.0, RBC 4.43, Hgb 13.3, Hct 41.3, MCV 93.2, MCH 30.0, MCHC 32.2, RDW Std Deviation 47.6 H, RDW Coeff of Jeanette 13.8, Plt Count 147 L, MPV 11.3, Immature Gran % (Auto) 0.400, Neut % (Auto) 79.3 H, Lymph % (Auto) 10.0 L, [place] % (Auto) 9.3, Eos % (Auto) 0.3, Baso % (Auto) 0.7, Absolute Neuts (auto) 5.6, Absolute Lymphs (auto) 0.70 L, Nucleated RBC % 0, Sodium 143, Potassium 3.5, Chloride 111 H, Carbon Dioxide 27.0, Anion Gap 5, BUN 8, Creatinine 0.70, Estim Creat Clear Calc 42.66, Est GFR (MDRD) Af Amer 103, Est GFR (MDRD) Non-Af 85, BUN/Creatinine Ratio 11.5, Glucose 123 H, Hemoglobin A1c Pending, Calcium 8.2 L, Total Bilirubin 0.40, AST 18, ALT 13, Alkaline Phosphatase 174 H, Total Protein 5.2 L, Albumin 2.5 L, Globulin 2.7, Albumin/Globulin Ratio 0.9 03/01/24 06:28: POC Glucose 110 H
[2024-03-01 07:41] LABS: ALB/GLOB Ratio 0.9 RATIO (0.9-2.4); AST(SGOT) 18 U/L (15-37); Alanine Aminotransfer ALT/SGPT 13 U/L (13-56); Albumin, Serum 2.5 g/dL (3.2-5.0); Alkaline Phosphatase 174 U/L (45-117); Anion Gap 5 (5-15); BUN 8 mg/dL (7-18); BUN/Creat Ratio 11.5 RATIO (10-20); Calcium,Total 8.2 mg/dL (8.5-10.1); Chloride 111 mmol/L (98-107); EST Glomerular Filtration Rate 85 mL/min (>60); Est Glom Filt Rate - Afr Amer 103 mL/min (>60); Estimated Creatinine Clearance 42.66 ml/min; Globulin 2.7 g/dL (2.2-4.2); Glucose 123 mg/dL (74-106); Potassium 3.5 mmol/L (3.5-5.1); Protein, Total 5.2 g/dL (6.4-8.2); Sodium Level 143 mmol/L (136-145)
[2024-03-01 07:52] LABS: Hemoglobin A1c 6.3 % (3.8-5.6)
[2024-03-01] MEDS: amLODIPine 5 MG Tablet PO (09:53)
[2024-03-01] MEDS: Sertraline 50 MG Tablet 25 MG PO (09:53)
[2024-03-01] MEDS: Enoxaparin 40 MG/0.4 ML Syringe SC (09:53)
[2024-03-01] MEDS: Lidocaine 5% Patch 2 PATCH TOPICAL (09:53)
[2024-03-01] MEDS: Aspirin 81 MG TAB.CHEW PO (09:53)
[2024-03-01 12:50] LABS: Bedside Glucose 120 mg/dL (74-106)
[2024-03-01] MEDS: 0.9% Saline Lock 10 ML Syringe IV ×2 (15:28→21:08)
[2024-03-01 17:41] LABS: Bedside Glucose 141 mg/dL (74-106)
[2024-03-01] MEDS: Menthol/Lanolin/Calamine/Znox 113 GM Tube 1 APPLIC TOPICAL ×2 (18:03→21:12)
[2024-03-01] MEDS: Atorvastatin Calcium 40 MG Tablet PO (21:08)
[2024-03-01] MEDS: 0.9% Normal Saline (250mL Bag) 250 ML 15 ML IV (21:08)
[2024-03-01 21:37] LABS: Bedside Glucose 146 mg/dL (74-106)
[2024-03-02] VITALS (16 sets, daily range): BP systolic 98–149; BP diastolic 55–80; PULSE 71–152; RESP 14–17; TEMP 36.4–37.2; O2SAT 92–97; BMI 25.4
[2024-03-02] MEDS: Ketorolac 15 MG/ML Vial IV (05:40)
[2024-03-02] MEDS: 0.9% Saline Lock 10 ML Syringe IV ×4 (05:41→10:33)
[2024-03-02 07:01] LABS: Bedside Glucose 113 mg/dL (74-106)
--- NOTE | 2024-03-02 07:42 | EKG12_ITS ---
Test Reason : TACHYCARDIA Blood Pressure : / mmHG Vent. Rate : 146 BPM Atrial Rate : 000 BPM P-R Int : 000 ms QRS Dur : 070 ms QT Int : 286 ms P-R-T Axes : 000 074 -48 degrees QTc Int : 445 ms Atrial fibrillation with rapid ventricular response ST & T wave abnormality, consider anterior ischemia Abnormal ECG When compared with ECG of 29-FEB-2024 22:15, MANUAL COMPARISON REQUIRED, DATA IS UNCONFIRMED Confirmed by RICARDO ALEGRIA, CASPER ([id number]), editor sound ELIE MILLS ([id number]) on 03/03/2024 11:41:56 AM Referred By: JEANNIE Confirmed By:CASPER SILVA MD
[2024-03-02] MEDS: Aspirin 81 MG TAB.CHEW PO (07:50)
[2024-03-02] MEDS: Gabapentin 100 MG Capsule PO (07:50)
[2024-03-02] MEDS: Metoprolol Tartrate 5 MG/5 ML Vial IV ×2 (08:25→10:02)
--- NOTE | 2024-03-02 08:46 | PN.HOSP_ITS ---
Reason for Visit Reason for Visit: Diagnoses Dorsalgia, unspecified (03/01/24) Subjective Subjective Patient sitting up in bed, reports she feels much better overall, no backpain, however was noted to be in A-fib RVR with heart rate in 150s of unclear onset. Patient denies any history of A-fib, not having chest pain or shortness of breath, no lightheadedness, not feeling any palpitations Objective Data Objective Data Vital Signs: Vital Signs Temp Pulse Resp BP Pulse Ox O2 Del Method 97.6 F L 147 H 14 98/55 L 92 Room Air 03/02/24 07:36 03/02/24 07:56 03/02/24 07:36 03/02/24 07:36 03/02/24 07:36 03/02/24 08:09 Oxygen Delivery Method Room Air Weight: 62.7 kg Body Mass Index (BMI) 25.4 Intake & Output: Intake and Output for Last 24 Hours 02/29/24 03/01/24 03/02/24 23:59 23:59 23:59 Intake Total 1460 / 1460 Balance 1460 / 1460 Lab / Micro Data 03/01/24 06:15 03/01/24 06:15 Labs: Laboratory Results - last 24 hr 03/01/24 12:27: POC Glucose 120 H 03/01/24 17:22: POC Glucose 141 H 03/01/24 21:16: POC Glucose 146 H 03/02/24 06:32: POC Glucose 113 H Micro: Microbiology 02/29/24 21:52 Urine, Clean Catch Urine Culture - Preliminary GNR lactose customer care agent Physical Exam Narrative General: Alert, oriented, no apparent distress HEENT: Atraumatic, normocephalic Eyes: Anicteric, normal conjunctiva, extraocular movements grossly intact Neck: Supple Respiratory: Clear to auscultation bilaterally, normal respiratory effort Cardiovascular: Tachycardic, irregularly irregular GI: Soft, nontender, nondistended Extremities: No edema Musculoskeletal: Moving all extremities Neuro: No overt focal neurological deficits Skin: No rashes appreciated Psych: Cooperative Assessment & Plan Assessment/Plan (1) Intractable back pain: PLAN: Plan #Intractable back pain with CT with multiple pathologic compression fractures -as well as T12 fracture that appears to possibly be acute with slight retropulsion and concern that it could be possibly unstable -MRI ordered and pending -May need pain management or orthospine -Pain control #New onset afib rvr -Patient found to have heart rate of 150s this a.m. -IV Lopressor x 1 -Started on telemetry -metoprolol scheduled -If this needs escalated or patient needs drip will need to be transferred to PCU -Will give small bolus of IV fluids -Check echo -Check magnesium and TSH -Will ultimately need to discuss anticoagulation however will see if patient needs any intervention for her compression fractures prior to initiation #UTI -Patient current gram-negative rods in urine -Awaiting culture and sensitivity -Patient on Rocephin -Reports she feels better overall and feels stronger overall, query if UTI was contributing to weakness and falls #Type 2 diabetes mellitus -Glucose checks and sliding scale insulin # History of anxiety and depression -continue sertraline # Hypertension -Holding home amlodipine given patient to be started on metoprolol and this may need further titration #DVT ppx: Lovenox subcu Jada Alvarez MD Charges/Coding Visit Charges Inpatient E&M: 01952 Subs Hosp L2
--- NOTE | 2024-03-02 08:47 | ECHOD_ITS ---
Reason For Study: Afib/Flutter Procedure This was a 2D Doppler, Color Flow transthoracic echocardiogram. Exam performed portable in patient room. Left Ventricle Normal LV size. Left ventricular systolic function is normal. The left ventricular ejection fraction is 60 %. Stage 1 diastolic dysfunction. No regional wall motion abnormalities noted. Right Ventricle Normal RV size. Normal systolic function. Atria Normal left atrium. Normal right atrium. Mitral Valve Normal mitral valve. Tricuspid Valve Normal tricuspid valve. Great Vessels Normal aortic root. The pulmonary artery is normal size. Normal inferior vena cava. Pericardium/Pleural No pericardial effusion. MMode/2D Measurements & Calculations LVIDd: 4.4 cm IVSd: 1.1 cm LVOT diam: 1.9 cm LVIDs: 3.4 cm LVPWd: 0.80 cm LVOT area: 2.7 cm2 RVDd: 2.5 cm FS: 23.3 % Ao root diam: 3.4 cm asc Aorta Diam: 3.3 cm LAV(MOD-bp): 70.1 ml LA dimension: 4.4 cm LAV(MOD-bp) Indexed: 43.5 ml/m2 LAV(MOD-sp2): 75.6 ml LAV(MOD-sp4): 62.7 ml LA A4 area: 20.4 cm2 RA A4 area: 11.1 cm2 Time Measurements MV dec time: 0.19 sec Doppler Measurements & Calculations MV E max nikko: 74.0 cm/sec Lat Peak E' Nikko: 8.5 cm/sec Med Peak E' Nikko: 5.8 cm/sec MV A max nikko: 79.8 cm/sec E/E' lat: 8.7 E/E' med: 12.8 MV E/A: 0.93 MV V2 max: 103.1 cm/sec MV P1/2t max nikko: 103.6 cm/sec MR max nikko: 420.9 cm/sec MV max P.3 mmHg MV P1/2t: 79.4 msec MR max P.8 mmHg MV V2 mean: 52.0 cm/sec MV mean P.3 mmHg MV dec slope: 381.9 cm/sec2 MV V2 VTI: 34.0 cm MVA(P1/2t): 2.8 cm2 PA V2 max: 82.9 cm/sec TR max nikko: 215.8 cm/sec PA max PG (full): 0.79 mmHg TR max P.6 mmHg ECHO/Echo Complete Interpretation Summary Normal LV size. Left ventricular systolic function is normal. The left ventricular ejection fraction is 60 %. Stage 1 diastolic dysfunction. Ordering Physician: Jada Alvarez Performed By: Heladio Jauregui and Student
--- NOTE | 2024-03-02 09:00 | MRI_ITS ---
EXAM: MR THORACIC AND LUMBAR SPINE WITHOUT INTRAVENOUS CONTRAST CLINICAL INDICATION: Intractable pain, fx TECHNIQUE: Multiplanar and multisequence MR images of the thoracic and lumbar spine without intravenous contrast. COMPARISON: CT thoracic and lumbar spine examinations dated 02/29/2024. FINDINGS: VERTEBRAE: Acute T12 compression fracture with diffuse hypointense T1 signal throughout the vertebral body, retropulsion of the posterior cortex, and mild edema extending from the vertebral body into the bilateral pedicles without discrete evidence of pedicle or other posterior element fracture. L2 superior endplate compression deformity with nearly 50% mid vertebral body height loss although no evidence of retropulsion or involvement of the posterior cortex. No pedicle or posterior element involvement. Very minimal edema which may be related to associated degenerative change or related to subacute fracture. L3 diffuse marrow signal abnormality or perhaps mild/early superior endplate pathologic compression deformity. No significant vertebral body height loss. L4 inferior endplate focal compression deformity or Schmorl''s node without additional marrow space signal abnormality. Diffuse L5 marrow space signal abnormality with approximately 25% vertebral body height loss associated with inferior and superior endplate compression deformities. No involvement of the posterior elements. Mild marrow edema suggesting that this may be a late acute or subacute injury. Multilevel facet arthrosis and endplate osteophytosis. No spondylolysis or spondylolisthesis. Normal thoracic kyphosis and lumbar lordosis. Chronic mild T4 and T5 superior endplate compression deformities with less than 25% vertebral body height loss. Mild chronic superior endplate compression deformity with less than 25% vertebral body height loss and no retropulsion of the posterior cortex or involvement of the pedicle/posterior elements. No scoliosis. SPINAL CORD: There is mild mass effect upon the conus medullaris at the level of T12. Otherwise, there is no spinal cord signal abnormality or additional mass effect upon the thoracic spinal cord. There may be mild mass effect upon the lower cervical spinal cord. SOFT TISSUES: No significant abnormality. GALLBLADDER AND BILE DUCTS: Cholelithiasis. KIDNEYS AND URETERS: Renal cysts are present for which no follow-up is indicated. DISCS/SPINAL CANAL/NEURAL FORAMINA: THORACIC: Partially visualized degenerative changes in the lower cervical spine with at least mild spinal canal stenosis. L1-L2: Bilateral facet arthrosis. Right central disc herniation resulting in mild spinal canal and mild right neural foraminal stenosis. L2-L3: Left central disc herniation and moderate bilateral facet arthrosis. Mild spinal canal and bilateral neural foraminal narrowing. L3-L4: Disc bulge and moderate bilateral facet arthrosis. Mild spinal canal stenosis. Left foraminal to extraforaminal disc herniation contributing to left greater than right mild neural foraminal narrowing. L4-L5: Mild bilateral facet arthrosis with ligamentum flavum thickening and disc bulge. Mild spinal canal stenosis and moderate bilateral neural foraminal narrowing. L5-S1: Moderate to severe bilateral facet arthrosis. No disc herniation, spinal canal stenosis, or neural foraminal narrowing. MRI/Spine Lumbar (Routine) IMPRESSION: 1. Acute T12 compression fracture with diffuse hypointense T1 signal throughout the vertebral body, retropulsion of the posterior cortex, and mild edema extending from the vertebral body into the bilateral pedicles without discrete evidence of pedicle or other posterior element fracture. This likely pathologic fracture given significant sclerosis at multiple vertebral segments on comparison CT. 2. There is mild mass effect upon the conus medullaris at the level of T12. Otherwise, there is no spinal cord signal abnormality or additional mass effect upon the thoracic spinal cord. There may be mild mass effect upon the lower cervical spinal cord. 3. L2 superior endplate compression deformity with nearly 50% mid vertebral body height loss although no evidence of retropulsion or involvement of the posterior cortex. No pedicle or posterior element involvement. Very minimal edema which may be related to associated degenerative change or related to subacute fracture. 4. L3 diffuse marrow signal abnormality or perhaps mild/early superior endplate pathologic compression deformity. No significant vertebral body height loss. 5. Diffuse L5 marrow space signal abnormality with approximately 25% vertebral body height loss associated with inferior and superior endplate compression deformities. No involvement of the posterior elements. Mild marrow edema suggesting that this may be a late acute or subacute injury. 6. Chronic mild T4 and T5 superior endplate compression deformities with less than 25% vertebral body height loss. 7. Multilevel degenerative changes. No additional evidence of critical spinal canal stenosis. 8. Cholelithiasis. Electronically Signed: Jonnathan Price DO at 20:12 EDT ,
--- NOTE | 2024-03-02 09:00 | MRI_ITS ---
EXAM: MR THORACIC AND LUMBAR SPINE WITHOUT INTRAVENOUS CONTRAST CLINICAL INDICATION: Intractable pain, fx TECHNIQUE: Multiplanar and multisequence MR images of the thoracic and lumbar spine without intravenous contrast. COMPARISON: CT thoracic and lumbar spine examinations dated 02/29/2024. FINDINGS: VERTEBRAE: Acute T12 compression fracture with diffuse hypointense T1 signal throughout the vertebral body, retropulsion of the posterior cortex, and mild edema extending from the vertebral body into the bilateral pedicles without discrete evidence of pedicle or other posterior element fracture. L2 superior endplate compression deformity with nearly 50% mid vertebral body height loss although no evidence of retropulsion or involvement of the posterior cortex. No pedicle or posterior element involvement. Very minimal edema which may be related to associated degenerative change or related to subacute fracture. L3 diffuse marrow signal abnormality or perhaps mild/early superior endplate pathologic compression deformity. No significant vertebral body height loss. L4 inferior endplate focal compression deformity or Schmorl''s node without additional marrow space signal abnormality. Diffuse L5 marrow space signal abnormality with approximately 25% vertebral body height loss associated with inferior and superior endplate compression deformities. No involvement of the posterior elements. Mild marrow edema suggesting that this may be a late acute or subacute injury. Multilevel facet arthrosis and endplate osteophytosis. No spondylolysis or spondylolisthesis. Normal thoracic kyphosis and lumbar lordosis. Chronic mild T4 and T5 superior endplate compression deformities with less than 25% vertebral body height loss. Mild chronic superior endplate compression deformity with less than 25% vertebral body height loss and no retropulsion of the posterior cortex or involvement of the pedicle/posterior elements. No scoliosis. SPINAL CORD: There is mild mass effect upon the conus medullaris at the level of T12. Otherwise, there is no spinal cord signal abnormality or additional mass effect upon the thoracic spinal cord. There may be mild mass effect upon the lower cervical spinal cord. SOFT TISSUES: No significant abnormality. GALLBLADDER AND BILE DUCTS: Cholelithiasis. KIDNEYS AND URETERS: Renal cysts are present for which no follow-up is indicated. DISCS/SPINAL CANAL/NEURAL FORAMINA: THORACIC: Partially visualized degenerative changes in the lower cervical spine with at least mild spinal canal stenosis. L1-L2: Bilateral facet arthrosis. Right central disc herniation resulting in mild spinal canal and mild right neural foraminal stenosis. L2-L3: Left central disc herniation and moderate bilateral facet arthrosis. Mild spinal canal and bilateral neural foraminal narrowing. L3-L4: Disc bulge and moderate bilateral facet arthrosis. Mild spinal canal stenosis. Left foraminal to extraforaminal disc herniation contributing to left greater than right mild neural foraminal narrowing. L4-L5: Mild bilateral facet arthrosis with ligamentum flavum thickening and disc bulge. Mild spinal canal stenosis and moderate bilateral neural foraminal narrowing. L5-S1: Moderate to severe bilateral facet arthrosis. No disc herniation, spinal canal stenosis, or neural foraminal narrowing. MRI/Spine Thoracic (Routine) IMPRESSION: 1. Acute T12 compression fracture with diffuse hypointense T1 signal throughout the vertebral body, retropulsion of the posterior cortex, and mild edema extending from the vertebral body into the bilateral pedicles without discrete evidence of pedicle or other posterior element fracture. This likely pathologic fracture given significant sclerosis and multiple vertebral segments on comparison CT. 2. There is mild mass effect upon the conus medullaris at the level of T12. Otherwise, there is no spinal cord signal abnormality or additional mass effect upon the thoracic spinal cord. There may be mild mass effect upon the lower cervical spinal cord. 3. L2 superior endplate compression deformity with nearly 50% mid vertebral body height loss although no evidence of retropulsion or involvement of the posterior cortex. No pedicle or posterior element involvement. Very minimal edema which may be related to associated degenerative change or related to subacute fracture. 4. L3 diffuse marrow signal abnormality or perhaps mild/early superior endplate pathologic compression deformity. No significant vertebral body height loss. 5. Diffuse L5 marrow space signal abnormality with approximately 25% vertebral body height loss associated with inferior and superior endplate compression deformities. No involvement of the posterior elements. Mild marrow edema suggesting that this may be a late acute or subacute injury. 6. Chronic mild T4 and T5 superior endplate compression deformities with less than 25% vertebral body height loss. 7. Multilevel degenerative changes. No additional evidence of critical spinal canal stenosis. 8. Cholelithiasis. Electronically Signed: Jonnathan Price DO at 20:11 EDT ,
[2024-03-02 09:16] LABS: Absolute Neutrophil Count 5.4 X10^3/uL (2.0-7.7); Basophil# 0.06 X10^3/uL; Basophil% 0.9 % (0-1); Eosinophil# 0.11 X10^3/uL; Eosinophils% 1.6 % (0-5); Hematocrit 48.5 % (37-47); Hemoglobin 15.3 g/dL (12.0-15.0); Lymphocyte % 8.8 % (19-41); Mean Corp Hgb Conc 31.5 g/dL (32-36); Mean Corpuscular Hgb 29.7 pg (27.0-32.0); Mean Platelet Vol. 10.7 fl (6.2-12.0); Monocyte# 0.68 X10^3/uL; Monocyte% 9.9 % (0-10); NRBC Flagged by Analyzer 0 % (0-5); Neutrophil # 5.38 X10^3/uL (2.7-7.7); Neutrophil % 78.5 % (47-70); POSITIVE DIFFERENTIAL YES; Platelet Count 158 K/mm3 (150-450); RBC Distribution Width CV 14.1 % (11.6-14.6); Red Blood Count 5.16 M/mm3 (4.2-5.4); White Blood Count 6.9 K/mm3 (4.4-11.0)
--- NOTE | 2024-03-02 09:23 | NURSING ---
Dr Alvarez aware of HR
[2024-03-02] MEDS: Menthol/Lanolin/Calamine/Znox 113 GM Tube 1 APPLIC TOPICAL ×4 (09:51→21:02)
[2024-03-02] MEDS: Metoprolol Tartrate 25 MG Tablet 12.5 MG PO ×2 (09:57→20:56)
[2024-03-02] MEDS: Enoxaparin 40 MG/0.4 ML Syringe SC (09:59)
[2024-03-02] MEDS: Sertraline 50 MG Tablet 25 MG PO (10:00)
[2024-03-02] MEDS: 0.9% Normal Saline (500mL Bag) 500 ML 999 ML IV (10:28)
[2024-03-02 10:44] LABS: ALB/GLOB Ratio 0.8 RATIO (0.9-2.4); AST(SGOT) 24 U/L (15-37); Alanine Aminotransfer ALT/SGPT 17 U/L (13-56); Albumin, Serum 2.7 g/dL (3.2-5.0); Alkaline Phosphatase 197 U/L (45-117); Anion Gap 7 (5-15); BUN 15 mg/dL (7-18); BUN/Creat Ratio 17.8 RATIO (10-20); Calcium,Total 8.6 mg/dL (8.5-10.1); Chloride 112 mmol/L (98-107); Creatinine, Serum 0.84 mg/dL (0.55-1.02); EST Glomerular Filtration Rate 68 mL/min (>60); Est Glom Filt Rate - Afr Amer 83 mL/min (>60); Estimated Creatinine Clearance 41.56 ml/min; Globulin 3.3 g/dL (2.2-4.2); Glucose 204 mg/dL (74-106); Phosphorus 3.3 mg/dL (2.5-4.9); Potassium 3.9 mmol/L (3.5-5.1); Sodium Level 142 mmol/L (136-145)
--- NOTE | 2024-03-02 10:59 | EKG12_ITS ---
Test Reason : REPEAT AFIB Blood Pressure : / mmHG Vent. Rate : 071 BPM Atrial Rate : 071 BPM P-R Int : 116 ms QRS Dur : 070 ms QT Int : 398 ms P-R-T Axes : 069 066 035 degrees QTc Int : 432 ms Normal sinus rhythm with sinus arrhythmia Nonspecific T wave abnormality Abnormal ECG When compared with ECG of 02-MAR-2024 07:36, MANUAL COMPARISON REQUIRED, DATA IS UNCONFIRMED Confirmed by RICARDO ALEGRIA, CASPER ([id number]), advertising editor ALDAIR VILLARREAL ([id number]) on 03/04/2024 6:08:30 AM Referred By: JEANNIE Confirmed By:CASPER SILVA MD
[2024-03-02 11:56] LABS: Bedside Glucose 138 mg/dL (74-106)
--- NOTE | 2024-03-02 12:05 | CASEMGMT ---
LUZ PADILLA Assessment: Face to Face with pt for initial transition planning/care coordination assessment. LUZ PADILLA introduced self and role at [facility], pt voices understanding and consents to assessment. Pt is A&O x4 and answers all questions appropriately at this time. Pt lying in bed in no distress. Care providers, pharmacy, and demographics verified/updated. Admitting Dx: falls, intractable pain Strata Score: 2 PCP:Diamante Specialists:Pt denies Preferred Pharmacy:[facility] Insurance: [employer] Prescription Benefit: no LNOK: Fidencio Sweeney, son; Jl Sweeney, son Living Arrangements: Pt lives alone in a single story home with 1 step to enter. Pt reports she is typically I in ADLs and IADLs. Pt denies concerns at home. Transportation: Pt does not drive. States her son transports her to medical appts. DME:bp cuff HHC/SNF: Denies hx of Pt states no concerns with going home at time of dc. Pt states that she does not use AD to ambulate. She states she walked around the [place] today with therapy. Pt denies need for any AD upon homegoing. Discussed HHC with pt as well as outpt therapy, she denies the need for both. Pt states it is not her fault that she is falling. She states that it is because of medicine she is on. Pt states she plans to move to [place] with her dtr because there is smarter health people there. Pt states no further concerns/needs. CM to follow. Advised pt to ask CM if any further question/concerns/needs arise, voices understanding. Pt Goal: Home Plan: Home Leelee ESCOBAR CM
--- NOTE | 2024-03-02 15:20 | CASEMGMT ---
Pt son present in room and asked for RN CM. RN CM into pt room, pt son asks for information on [facility] medic alert program. He states they received a paper previously but [facility] was not on it. Provided with a pamphlet. Pt and son aware of the cost of the medic alert and how to set up. He states he will speak further to pt about it. He states that he agrees that the pt does not need [facility] services. He has been speaking to pt about going to [place] to live with her dtr. Pt and son deny further needs at this time. Radiology in to do echo at this time.
[2024-03-02 17:09] LABS: Bedside Glucose 117 mg/dL (74-106)
[2024-03-02] MEDS: Atorvastatin Calcium 40 MG Tablet PO (20:53)
[2024-03-02] MEDS: Ceftriaxone 1 GM/50 ML BAG IV (20:53)
[2024-03-02 21:33] LABS: Bedside Glucose 146 mg/dL (74-106)
[2024-03-03] VITALS (10 sets, daily range): BP systolic 111–145; BP diastolic 43–67; PULSE 66–82; RESP 14–16; TEMP 36.7–38.1; O2SAT 94–98; BMI 25.4
[2024-03-03 06:41] LABS: Bedside Glucose 103 mg/dL (74-106)
[2024-03-03 06:58] LABS: Hematocrit 38.4 % (37-47); Hemoglobin 12.5 g/dL (12.0-15.0); Mean Corp Hgb Conc 32.6 g/dL (32-36); Mean Corpuscular Hgb 30.3 pg (27.0-32.0); Mean Corpuscular Volume 93.2 fL (81-99); Platelet Count 148 K/mm3 (150-450); RBC Distribution Width CV 13.9 % (11.6-14.6); RBC Distribution Width SD 47.8 fl (35.1-43.9); Red Blood Count 4.12 M/mm3 (4.2-5.4); White Blood Count 5.1 K/mm3 (4.4-11.0)
[2024-03-03] MEDS: Aspirin 81 MG TAB.CHEW PO (07:40)
[2024-03-03 08:11] LABS: Anion Gap 7 (5-15); BUN 13 mg/dL (7-18); Calcium,Total 8.1 mg/dL (8.5-10.1); Chloride 111 mmol/L (98-107); Creatinine, Serum 0.68 mg/dL (0.55-1.02); EST Glomerular Filtration Rate 87 mL/min (>60); Est Glom Filt Rate - Afr Amer 105 mL/min (>60); Glucose 113 mg/dL (74-106); Potassium 3.6 mmol/L (3.5-5.1); Sodium Level 142 mmol/L (136-145)
--- NOTE | 2024-03-03 08:48 | PN.HOSP_ITS ---
Reason for Visit Reason for Visit: Diagnoses Dorsalgia, unspecified (03/01/24) Subjective Subjective Patient has had some increased pain in her back after laying down for MRIs yesterday, also has not slept well. Presently normal sinus rhythm Objective Data Objective Data Vital Signs: Vital Signs Temp Pulse Resp BP Pulse Ox O2 Del Method 98.6 F 73 16 123/43 H 97 Room Air 03/03/24 07:24 03/03/24 07:24 03/03/24 07:24 03/03/24 07:24 03/03/24 07:24 03/03/24 07:26 Oxygen Delivery Method Room Air Weight: 62.9 kg Body Mass Index (BMI) 25.4 Intake & Output: Intake and Output for Last 24 Hours 03/01/24 03/02/24 03/03/24 23:59 23:59 23:59 Intake Total 1460 / 1460 908 / 908 300 / 300 Output Total 200 / 200 Balance 1460 / 1460 708 / 708 300 / 300 Lab / Micro Data 03/03/24 06:24 03/03/24 06:24 Labs: Laboratory Results - last 24 hr 03/02/24 09:06: WBC 6.9, RBC 5.16, Hgb 15.3 H, Hct 48.5 H, MCV 94.0, MCH 29.7, M CHC 31.5 L, RDW Std Deviation 49.0 H, RDW Coeff of Jeanette 14.1, Plt Count 158, MPV 10.7, Immature Gran % (Auto) 0.300, Neut % (Auto) 78.5 H, Lymph % (Auto) 8.8 L, [place] % (Auto) 9.9, Eos % (Auto) 1.6, Baso % (Auto) 0.9, Absolute Neuts (auto) 5.4, Absolute Lymphs (auto) 0.60 L, Nucleated RBC % 0, Sodium 142, Potassium 3.9, Chloride 112 H, Carbon Dioxide 24.0, Anion Gap 7, BUN 15, Creatinine 0.84, Estim Creat Clear Calc 41.56, Est GFR (MDRD) Af Amer 83, Est GFR (MDRD) Non-Af 68, BUN/Creatinine Ratio 17.8, Glucose 204 H, Calcium 8.6, Phosphorus 3.3, Magnesium 2.0, Total Bilirubin 0.50, AST 24, ALT 17, Alkaline Phosphatase 197 H, Total Protein 6.0 L, Albumin 2.7 L, Globulin 3.3, Albumin/Globulin Ratio 0.8 L, TSH 1.880 03/02/24 11:37: POC Glucose 138 H 03/02/24 16:52: POC Glucose 117 H 03/02/24 20:55: POC Glucose 146 H 03/03/24 06:22: POC Glucose 103 03/03/24 06:24: WBC 5.1, RBC 4.12 L, Hgb 12.5, Hct 38.4, MCV 93.2, MCH 30.3, MCHC 32.6, RDW Std Deviation 47.8 H, RDW Coeff of Jeanette 13.9, Plt Count 148 L, MPV 11.0, Sodium 142, Potassium 3.6, Chloride 111 H, Carbon Dioxide 24.0, Anion Gap 7, BUN 13, Creatinine 0.68, Estim Creat Clear Calc 43.70, Est GFR (MDRD) Af Amer 105, Est GFR (MDRD) Non-Af 87, BUN/Creatinine Ratio 19.0, Glucose 113 H, Calcium 8.1 L Micro: Microbiology 02/29/24 21:52 Urine, Clean Catch Urine Culture - Preliminary GNR lactose community service director Radiography Diagnostic Testing: Radiology Impression Echocardiogram 03/02/24 08:47 Interpretation Summary Normal LV size. Left ventricular systolic function is normal. The left ventricular ejection fraction is 60 %. Stage 1 diastolic dysfunction. Ordering Physician: Jada Alvarez Performed By: Heladio Jauregui and Student Lumbar Spine MRI 03/02/24 09:00 IMPRESSION: 1. Acute T12 compression fracture with diffuse hypointense T1 signal throughout the vertebral body, retropulsion of the posterior cortex, and mild edema extending from the vertebral body into the bilateral pedicles without discrete evidence of pedicle or other posterior element fracture. This likely pathologic fracture given significant sclerosis at multiple vertebral segments on comparison CT. 2. There is mild mass effect upon the conus medullaris at the level of T12. Otherwise, there is no spinal cord signal abnormality or additional mass effect upon the thoracic spinal cord. There may be mild mass effect upon the lower cervical spinal cord. 3. L2 superior endplate compression deformity with nearly 50% mid vertebral body height loss although no evidence of retropulsion or involvement of the posterior cortex. No pedicle or posterior element involvement. Very minimal edema which may be related to associated degenerative change or related to subacute fracture. 4. L3 diffuse marrow signal abnormality or perhaps mild/early superior endplate pathologic compression deformity. No significant vertebral body height loss. 5. Diffuse L5 marrow space signal abnormality with approximately 25% vertebral body height loss associated with inferior and superior endplate compression deformities. No involvement of the posterior elements. Mild marrow edema suggesting that this may be a late acute or subacute injury. 6. Chronic mild T4 and T5 superior endplate compression deformities with less than 25% vertebral body height loss. 7. Multilevel degenerative changes. No additional evidence of critical spinal canal stenosis. 8. Cholelithiasis. Electronically Signed: Jonnathan Price DO at 20:12 EDT , Thoracic Spine MRI 03/02/24 09:00 IMPRESSION: 1. Acute T12 compression fracture with diffuse hypointense T1 signal throughout the vertebral body, retropulsion of the posterior cortex, and mild edema extending from the vertebral body into the bilateral pedicles without discrete evidence of pedicle or other posterior element fracture. This likely pathologic fracture given significant sclerosis and multiple vertebral segments on comparison CT. 2. There is mild mass effect upon the conus medullaris at the level of T12. Otherwise, there is no spinal cord signal abnormality or additional mass effect upon the thoracic spinal cord. There may be mild mass effect upon the lower cervical spinal cord. 3. L2 superior endplate compression deformity with nearly 50% mid vertebral body height loss although no evidence of retropulsion or involvement of the posterior cortex. No pedicle or posterior element involvement. Very minimal edema which may be related to associated degenerative change or related to subacute fracture. 4. L3 diffuse marrow signal abnormality or perhaps mild/early superior endplate pathologic compression deformity. No significant vertebral body height loss. 5. Diffuse L5 marrow space signal abnormality with approximately 25% vertebral body height loss associated with inferior and superior endplate compression deformities. No involvement of the posterior elements. Mild marrow edema suggesting that this may be a late acute or subacute injury. 6. Chronic mild T4 and T5 superior endplate compression deformities with less than 25% vertebral body height loss. 7. Multilevel degenerative changes. No additional evidence of critical spinal canal stenosis. 8. Cholelithiasis. Electronically Signed: Jonnathan Price DO at 20:11 EDT , Physical Exam Narrative General: Alert, oriented, no apparent distress HEENT: Atraumatic, normocephalic Eyes: Anicteric, normal conjunctiva, extraocular movements grossly intact Neck: Supple Respiratory: Clear to auscultation bilaterally, normal respiratory effort Cardiovascular: Regular rate and rhythm GI: Soft, nontender, nondistended Extremities: No edema Musculoskeletal: Moving all extremities but laying back in bed Neuro: No overt focal neurological deficits Skin: No rashes appreciated Psych: Cooperative Assessment & Plan Assessment/Plan (1) Intractable back pain: PLAN: Plan #Intractable back pain with CT with multiple pathologic compression fractures -as well as T12 fracture that appears to possibly be acute with slight retropulsion and concern that it could be possibly unstable -MRI ordered and pending -May need pain management or orthospine -Pain control -03/03: MRI demonstrated acute T12 compression fracture with diffuse hypointense T1 signal throughout the vertebral body with retropulsion of the posterior cortex and mild edema extending from vertebral body into bilateral pedicles without discrete evidence of pedicle or other posterior element fractures and mild mass effect but no other spinal cord signal abnormality or additional mass effect on thoracic spinal cord. Additional changes suggestive of other compression fractures appreciated as well. Patient with continued back pain, orthospine contacted for assistance with further management. Continue pain control #New onset afib rvr?resolved -Patient found to have heart rate of 150s this a.m. -IV Lopressor x 1 -Started on telemetry -metoprolol scheduled -If this needs escalated or patient needs drip will need to be transferred to PCU -Will give small bolus of IV fluids -Check echo -Check magnesium and TSH -Will ultimately need to discuss anticoagulation however will see if patient needs any intervention for her compression fractures prior to initiation -03/03: Patient presently normal sinus rhythm, no overt TSH abnormality. Patient's echo with EF 60% stage I diastolic dysfunction. Query if episode of A-fib RVR was due to underlying infection but cannot say this definitively. Patient on metoprolol. Prior to discharge will discuss risks and benefits of anticoagulation and potential for event monitor to assess if further burden of A-fib or if this was provoked #UTI secondary to Enterobacter -Patient current gram-negative rods in urine -Awaiting culture and sensitivity -Patient on Rocephin -Reports she feels better overall and feels stronger overall, query if UTI was contributing to weakness and falls -03/03: UA growing Enterobacter, patient switched to cefepime based on sensitivities #Type 2 diabetes mellitus -Glucose checks and sliding scale insulin -03/03: Glucose 103 this a.m. given low insulin requirements overall we will change to 3 times daily AC from 3 times daily AC at bedtime # History of anxiety and depression -continue sertraline -03/03: Continue sertraline, has been having some insomnia, increase nightly as needed melatonin # Hypertension -Holding home amlodipine given patient to be started on metoprolol and this may need further titration -03/03: Blood pressure the same 123/43, if it elevates further we will resume amlodipine #DVT ppx: Lovenox subcu Jada Alvarez MD Time spent in the patient's overall evaluation,decision-making process, review of diagnostic data, adjustment of management, discussion with other providers, nursing nursing and ancillary staff involved in patient's care documentation, 35 minutes Charges/Coding Visit Charges Inpatient E&M: 69264 Subs Hosp L2
[2024-03-03] MEDS: Menthol/Lanolin/Calamine/Znox 113 GM Tube 1 APPLIC TOPICAL ×4 (10:53→22:58)
[2024-03-03] MEDS: Lidocaine 5% Patch 2 PATCH TOPICAL (10:54)
[2024-03-03] MEDS: Metoprolol Tartrate 25 MG Tablet 12.5 MG PO ×2 (10:55→21:50)
[2024-03-03] MEDS: Cefepime HCl 2 GM in 0.9% Normal Saline (100mL MB+) 100 ML IV (10:55)
[2024-03-03] MEDS: Sertraline 50 MG Tablet 25 MG PO (10:56)
[2024-03-03] MEDS: Enoxaparin 40 MG/0.4 ML Syringe SC (10:56)
[2024-03-03] MEDS: 0.9% Saline Lock 10 ML Syringe IV ×3 (11:01→22:10)
[2024-03-03 12:05] LABS: Bedside Glucose 105 mg/dL (74-106)
--- NOTE | 2024-03-03 12:08 | CON.PCM.OR_ITS ---
Documented by User: CALLUM Rousseau 03/03/24 12:20 HPI Consult Data Date of Consult: 03/03/24 HPI Narrative HPI Narrative: DENISHA HARKINS, is a 83 F who presents to the [facility] ED on 03/01/24 with history of frequent falls living at home alone with a recent fall 3 to 4 weeks prior with reportedly some type of vertebral fracture at that point with ongoing persistent difficulties ambulating and taking care of herself prompting her 2 sons to bring her in as on day of presentation she could not even get out of bed and slid to the floor where she stayed for approximately 3 hours until they found her prompting transition to the ED for evaluation. Says that her fall was due to a medication making her dizzy. Currently she does not report any pain. Patient was laying upright in bed twisted to her left side upon arrival. She has walked with therapy and did not require an assistive device. [facility] Medical History (Updated 03/03/24 @ 13:[address] Bladimir Perry MD) Diabetes mellitus, type 2 History of vertigo Anxiety and depression Compression fracture HTN (hypertension) Hyperlipidemia Home Medications ?Medication ?Instructions ?Recorded ?Last Taken ?Type amlodipine 5 mg tablet 5 mg PO DAILY ##60 11/30/14 Unknown Rx aspirin 81 mg chewable tablet 81 mg PO DAILY@0800 ##60 11/30/14 Unknown Rx atorvastatin 40 mg tablet 40 mg PO QHS ##60 11/30/14 Unknown Rx meclizine 25 mg tablet 25 mg PO TID PRN PRN Vertigo #20 11/30/14 Unknown Rx tabs sertraline 50 mg tablet 25 mg PO DAILY 02/29/24 Unknown History Allergy/AdvReac Type Severity Reaction Status Date / Time codeine Allergy Intermediate Rash Verified 05/27/23 18:44 latex Allergy Intermediate Rash Verified 05/27/23 18:44 Sulfa (Sulfonamide Allergy Intermediate Rash Verified 05/27/23 18:44 Antibiotics) Family History no significant family his Surgical History History of dental surgery Social History (Updated 03/01/24 @ 01:[address] Nila Nam MD) household members: none Smoking Status: Never smoker alcohol intake: never substance use type: does not use Vital Signs Vital Signs Vital Signs: 03/02/24 15:06 10/07/24 16:17 03/02/24 20:48 Temperature 97.9 F 99.0 F Temperature Source Oral Oral Pulse Rate 76 80 81 Pulse Strength Respiratory Rate 17 16 Respiratory Effort Respiratory Depth Respiratory Pattern Blood Pressure 130/60 H 149/80 H Blood Pressure Mean 83 103 Blood Pressure Source Monitor Monitor Blood Pressure Position Sitting Semi-Fowlers Blood Pressure Location Right Arm Right Arm Pulse Ox 95 97 Oxygen Delivery Method Room Air Room Air 03/02/24 20:56 03/02/24 21:10 03/03/24 04:03 Temperature 98.1 F Temperature Source Oral Pulse Rate 81 80 Pulse Strength Normal (2+) Respiratory Rate 16 Respiratory Effort Respiratory Depth Respiratory Pattern Blood Pressure 145/67 H Blood Pressure Mean 93 Blood Pressure Source Monitor Blood Pressure Position Semi-Fowlers Blood Pressure Location Right Arm Pulse Ox 96 Oxygen Delivery Method Room Air 03/03/24 07:24 03/03/24 07:26 03/03/24 07:35 Temperature 98.6 F Temperature Source Oral Pulse Rate 73 Pulse Strength Normal (2+) Respiratory Rate 16 Respiratory Effort Normal Non-Labored Respiratory Depth Normal Respiratory Pattern Normal Blood Pressure 123/43 H Blood Pressure Mean 69 Blood Pressure Source Monitor Blood Pressure Position Supine Blood Pressure Location Left Arm Pulse Ox 97 Oxygen Delivery Method Room Air Room Air 03/03/24 10:55 03/03/24 11:40 Temperature Temperature Source Pulse Rate 73 Pulse Strength Respiratory Rate Respiratory Effort Respiratory Depth Respiratory Pattern Blood Pressure 123/43 H Blood Pressure Mean Blood Pressure Source Blood Pressure Position Blood Pressure Location Pulse Ox 95 Oxygen Delivery Method Room Air Weight Weight: 138 lb 10.732 oz Body Mass Index (BMI) 25.4 Physical Exam Narrative Neurological exam of the lower extremities shows 5x5 power. Normal sensation across all dermatomes. No midline or paraspinal tenderness. Lab / Micro Data 03/03/24 06:24 03/03/24 06:24 Labs: Laboratory Results - last 24 hr 03/02/24 16:52: POC Glucose 117 H 03/02/24 20:55: POC Glucose 146 H 03/03/24 06:22: POC Glucose 103 03/03/24 06:24: WBC 5.1, RBC 4.12 L, Hgb 12.5, Hct 38.4, MCV 93.2, MCH 30.3, MCHC 32.6, RDW Std Deviation 47.8 H, RDW Coeff of Jeanette 13.9, Plt Count 148 L, MPV 11.0, Sodium 142, Potassium 3.6, Chloride 111 H, Carbon Dioxide 24.0, Anion Gap 7, BUN 13, Creatinine 0.68, Estim Creat Clear Calc 43.70, Est GFR (MDRD) Af Amer 105, Est GFR (MDRD) Non-Af 87, BUN/Creatinine Ratio 19.0, Glucose 113 H, Calcium 8.1 L 03/03/24 11:46: POC Glucose 105 Micro: Microbiology 02/29/24 21:52 Urine, Clean Catch Urine Culture - Final Enterobacter cloacae complex Imaging Radiology Impression Echocardiogram 03/02/24 08:47 Interpretation Summary Normal LV size. Left ventricular systolic function is normal. The left ventricular ejection fraction is 60 %. Stage 1 diastolic dysfunction. Ordering Physician: Jada Alvarez Performed By: Heladio Jauregui and Student Lumbar Spine MRI 03/02/24 09:00 IMPRESSION: 1. Acute T12 compression fracture with diffuse hypointense T1 signal throughout the vertebral body, retropulsion of the posterior cortex, and mild edema extending from the vertebral body into the bilateral pedicles without discrete evidence of pedicle or other posterior element fracture. This likely pathologic fracture given significant sclerosis at multiple vertebral segments on comparison CT. 2. There is mild mass effect upon the conus medullaris at the level of T12. Otherwise, there is no spinal cord signal abnormality or additional mass effect upon the thoracic spinal cord. There may be mild mass effect upon the lower cervical spinal cord. 3. L2 superior endplate compression deformity with nearly 50% mid vertebral body height loss although no evidence of retropulsion or involvement of the posterior cortex. No pedicle or posterior element involvement. Very minimal edema which may be related to associated degenerative change or related to subacute fracture. 4. L3 diffuse marrow signal abnormality or perhaps mild/early superior endplate pathologic compression deformity. No significant vertebral body height loss. 5. Diffuse L5 marrow space signal abnormality with approximately 25% vertebral body height loss associated with inferior and superior endplate compression deformities. No involvement of the posterior elements. Mild marrow edema suggesting that this may be a late acute or subacute injury. 6. Chronic mild T4 and T5 superior endplate compression deformities with less than 25% vertebral body height loss. 7. Multilevel degenerative changes. No additional evidence of critical spinal canal stenosis. 8. Cholelithiasis. Electronically Signed: Jonnathan Price DO at 20:12 EDT , Thoracic Spine MRI 03/02/24 09:00 IMPRESSION: 1. Acute T12 compression fracture with diffuse hypointense T1 signal throughout the vertebral body, retropulsion of the posterior cortex, and mild edema extending from the vertebral body into the bilateral pedicles without discrete evidence of pedicle or other posterior element fracture. This likely pathologic fracture given significant sclerosis and multiple vertebral segments on comparison CT. 2. There is mild mass effect upon the conus medullaris at the level of T12. Otherwise, there is no spinal cord signal abnormality or additional mass effect upon the thoracic spinal cord. There may be mild mass effect upon the lower cervical spinal cord. 3. L2 superior endplate compression deformity with nearly 50% mid vertebral body height loss although no evidence of retropulsion or involvement of the posterior cortex. No pedicle or posterior element involvement. Very minimal edema which may be related to associated degenerative change or related to subacute fracture. 4. L3 diffuse marrow signal abnormality or perhaps mild/early superior endplate pathologic compression deformity. No significant vertebral body height loss. 5. Diffuse L5 marrow space signal abnormality with approximately 25% vertebral body height loss associated with inferior and superior endplate compression deformities. No involvement of the posterior elements. Mild marrow edema suggesting that this may be a late acute or subacute injury. 6. Chronic mild T4 and T5 superior endplate compression deformities with less than 25% vertebral body height loss. 7. Multilevel degenerative changes. No additional evidence of critical spinal canal stenosis. 8. Cholelithiasis. Electronically Signed: Jonnathan Price DO at 20:11 EDT , Assessment & Plan Assessment/Plan (1) T12 burst fracture: (2) Compression fracture of lumbar vertebra: QUALIFIERS: Encounter type: initial encounter Lumbar vertebra fracture level: unspecified lumbar vertebra Qualified Code(s): S32.000A - Wedge compression fracture of unspecified lumbar vertebra, initial encounter for closed fracture PLAN: Plan Discussed MRI results with the patient which showed acute compression fractures of T12, L2, L3, and L5. Discussed the kyphoplasty procedure with the patient but given her lack of pain and continued ambulation without an assistive device, patient does not feel that it is necessary at this moment. She will most likely need to be discharged to a shelter facility prior to return home to continue therapy and increase balance and safety. She will follow up in the office in 2 weeks for more imaging. Documented by User: Dr. Bladimir Perry MD 03/03/24 13:54 HPI Consult Data Date of Consult: 03/03/24 [facility] Medical History (Updated 03/03/24 @ 13:[address] Bladimir Perry MD) Diabetes mellitus, type 2 History of vertigo Anxiety and depression Compression fracture HTN (hypertension) Hyperlipidemia Home Medications ?Medication ?Instructions ?Recorded ?Last Taken ?Type amlodipine 5 mg tablet 5 mg PO DAILY ##60 11/30/14 Unknown Rx aspirin 81 mg chewable tablet 81 mg PO DAILY@0800 ##60 11/30/14 Unknown Rx atorvastatin 40 mg tablet 40 mg PO QHS ##60 11/30/14 Unknown Rx meclizine 25 mg tablet 25 mg PO TID PRN PRN Vertigo #20 11/30/14 Unknown Rx tabs sertraline 50 mg tablet 25 mg PO DAILY 02/29/24 Unknown History Allergy/AdvReac Type Severity Reaction Status Date / Time codeine Allergy Intermediate Rash Verified 05/27/23 18:44 latex Allergy Intermediate Rash Verified 05/27/23 18:44 Sulfa (Sulfonamide Allergy Intermediate Rash Verified 05/27/23 18:44 Antibiotics) Family History no significant family his Surgical History History of dental surgery Social History (Updated 03/01/24 @ 01:[address] iNla Nam MD) household members: none Smoking Status: Never smoker alcohol intake: never substance use type: does not use Physical Exam Narrative Neurological exam of the lower extremities shows 5x5 power. Normal sensation across all dermatomes. No midline or paraspinal tenderness. Lidocaine patches noticed. Lab / Micro Data 03/03/24 06:24 03/03/24 06:24 Assessment & Plan Assessment/Plan (1) T12 burst fracture: (2) Compression fracture of lumbar vertebra: QUALIFIERS: Encounter type: initial encounter Lumbar vertebra fracture level: unspecified lumbar vertebra Qualified Code(s): S32.000A - Wedge compression fracture of unspecified lumbar vertebra, initial encounter for closed fracture PLAN: Plan Discussed MRI results with the patient which showed acute compression fractures of T12, L2, L3, and L5. T12 shows burst component. Explained to her the imaging findings in detail. Discussed CT and MRI with neuroradiology. Due to the acute nature of 4 different fractured vertebrae, and sclerotic picture on CT scan, my initial suspicion was of neoplastic etiology. After discussion with neuroradiology, it appears that there is no soft tissue component and the sclerosis may be related to demineralization and these are likely pathologic fractures associated with her osteoporosis. At this time, patient seems to be clinically in good pain control. She in fact was able to twist her back to reach her lunch table without significant pain or discomfort. This may be related to analgesia from medications. Regardless, explained that treatment options include pain, rest, analgesia. If symptoms persist, cement augmentation with kyphoplasty or spine satinder may be considered. Discussed the kyphoplasty procedure with the patient but given her lack of pain and continued ambulation without an assistive device, patient does not feel that it is necessary at this moment. She will most likely need to be discharged to a shelter facility prior to return home to continue therapy and increase balance and safety. She will follow up in the office in 2 weeks for more imaging. We may reconsider cement augmentation at that stage if she continues to have significant pain and disability. I asked her if she would like me to call any of her family members to update them, but the patient declined. Patient was in agreement. Charges/Coding Visit Charges Inpatient E&M: 32120 Init Hosp L3
[2024-03-03 16:40] LABS: Bedside Glucose 120 mg/dL (74-106)
[2024-03-03] MEDS: Atorvastatin Calcium 40 MG Tablet PO (21:51)
[2024-03-03] MEDS: Acetaminophen 325 MG Tablet 650 MG PO (21:53)
[2024-03-03] MEDS: Cefepime HCl 1 GM in 0.9% Normal Saline (50mL MB+) 50 ML IV (21:54)
[2024-03-04 04:16] VITALS: PULSE 67
[2024-03-04 04:21] VITALS: BP 135/56; PULSE 76; RESP 17; TEMP 36.6; O2SAT 99
[2024-03-04 05:21] VITALS: BMI 25.3
[2024-03-04 06:43] LABS: Bedside Glucose 112 mg/dL (74-106)
[2024-03-04 07:13] LABS: Anion Gap 4 (5-15); BUN 14 mg/dL (7-18); BUN/Creat Ratio 23.1 RATIO (10-20); Calcium,Total 8.2 mg/dL (8.5-10.1); Chloride 109 mmol/L (98-107); EST Glomerular Filtration Rate 100 mL/min (>60); Est Glom Filt Rate - Afr Amer 121 mL/min (>60); Estimated Creatinine Clearance 43.54 ml/min; Glucose 117 mg/dL (74-106); Potassium 3.7 mmol/L (3.5-5.1); Sodium Level 140 mmol/L (136-145)
[2024-03-04 07:24] VITALS: O2SAT 93
[2024-03-04 07:48] LABS: Absolute Lymphocyte Count 0.38 X10^3/uL (0.83-4.51); Absolute Neutrophil Count 3.7 X10^3/uL (2.0-7.7); Basophil# 0.03 X10^3/uL; Basophil% 0.6 % (0-1); Eosinophil# 0.16 X10^3/uL; Eosinophils% 3.4 % (0-5); Hematocrit 41.1 % (37-47); Hemoglobin 13.2 g/dL (12.0-15.0); Lymphocyte # 0.38 X10^3/ul (0.83-4.51); Lymphocyte % 8.1 % (19-41); Mean Corp Hgb Conc 32.1 g/dL (32-36); Mean Corpuscular Hgb 29.8 pg (27.0-32.0); Mean Corpuscular Volume 92.8 fL (81-99); Mean Platelet Vol. 11.3 fl (6.2-12.0); Monocyte# 0.42 X10^3/uL; NRBC Flagged by Analyzer 0 % (0-5); Neutrophil # 3.67 X10^3/uL (2.7-7.7); Neutrophil % 78.5 % (47-70); POSITIVE DIFFERENTIAL YES; Platelet Count 200 K/mm3 (150-450); RBC Distribution Width CV 13.7 % (11.6-14.6); RBC Distribution Width SD 46.7 fl (35.1-43.9); Red Blood Count 4.43 M/mm3 (4.2-5.4); White Blood Count 4.7 K/mm3 (4.4-11.0)
[2024-03-04] MEDS: Aspirin 81 MG TAB.CHEW PO (09:29)
[2024-03-04] MEDS: Lidocaine 5% Patch 2 PATCH TOPICAL (09:29)
[2024-03-04] MEDS: Sertraline 50 MG Tablet 25 MG PO (09:30)
[2024-03-04] MEDS: Enoxaparin 40 MG/0.4 ML Syringe SC (09:30)
[2024-03-04 09:34] VITALS: PULSE 100
[2024-03-04] MEDS: Metoprolol Tartrate 25 MG Tablet 12.5 MG PO (09:34)
[2024-03-04] MEDS: Menthol/Lanolin/Calamine/Znox 113 GM Tube 1 APPLIC TOPICAL ×2 (09:36→11:51)
[2024-03-04 09:37] VITALS: BP 146/71; PULSE 100; RESP 18; TEMP 37.1; O2SAT 94
[2024-03-04] MEDS: 0.9% Saline Lock 10 ML Syringe IV (09:47)
[2024-03-04] MEDS: Cefepime HCl 1 GM in 0.9% Normal Saline (50mL MB+) 50 ML IV (09:47)
[2024-03-04 12:33] LABS: Bedside Glucose 92 mg/dL (74-106)
--- NOTE | 2024-03-04 14:43 | PCM.DC ---
Discharge Instructions Diet Discharge Diet: - (Carbohydrate consistent) Activity Discharge Activity: - (Increase activity as tolerated) Follow Up Care Test Results: Test results from this visit will be discussed in further detail at your follow-up appointment, if applicable. Discharge Plan Admission Admit Date/Time: 03/01/24 00:35 Primary Reason for Your Visit: Back pain Attending Provider: Jada Alvarez Primary Care Provider: Shantal Bobby Consulting Providers: Nila Nam; Flo Yap; Bladimir Perry Instructions Patient Instructions: ED Fall Prevention Additional Instructions / Restrictions: DISCHARGE INSTRUCTIONS PLEASE READ *Please take this with you to your next doctors appointment* -You will be discharged on ciprofloxacin 500 mg every 12 hours with a dose tonight followed by 4 more days -Please follow-up with Dr. Perry in 2 weeks. Please call their office to schedule hospital follow-up appointment upon discharge. -You will be discharged with instructions for a 30-day heart monitor to evaluate for any further abnormal heart rhythms - you will be discharged on metoprolol twice daily due to your brief irregular heartbeat. - we discussed the risks and benefits of starting anticoagulation given the 1 brief episode of irregular heartbeat and ultimately was decided that you would be discharged with a 30-day heart monitor to evaluate for any further abnormal rhythms and follow-up with your primary care physician for final determination on anticoagulation -Please call your primary care provider's office upon discharge to schedule a hospital follow up within 1 week. -For any concerning signs or symptoms please call 911 or proceed to the nearest emergency department Discharge Orders/Prescriptions Prescriptions: New lidocaine 5 % Adhesive Patch,Medicated 2 patch topical DAILY Qty: 30 0RF Protocol: *Topical Application Instructions APPLICATION INSTRUCTIONS: Back metoprolol tartrate 25 mg Tablet 12.5 mg PO BID 30 Days Qty: 30 0RF ciprofloxacin HCl 500 mg tablet 500 mg PO BID 4 Days Qty: 9 0RF Continued atorvastatin 40 MG tablet 40 mg PO QHS Qty: 60 0RF Patient Comments: cholesterol amlodipine 5 MG tablet 5 mg PO DAILY Qty: 60 0RF Patient Comments: heart/blood pressure aspirin 81 MG tablet,chewable 81 mg PO DAILY@0800 Qty: 60 0RF Patient Comments: heart health meclizine 25 MG tablet 25 mg PO TID PRN PRN (Reason: Vertigo) Qty: 20 0RF Patient Comments: dizziness sertraline 50 mg tablet 25 mg PO DAILY Other Ambulatory Orders: 30 Day Event Recorder Preventi (Urgent) Timeframe: 1 Day Facility: [facility] - Location: Cardiovascular Services Ordered By: Dr. Jada Alvarez Referrals / Follow Up: Bladimir Perry MD [Med Staff - Active Staff] - Within 2 Weeks Shantal Bobby MD [Primary Care Provider] - Within 1 Week Care Physician,No Primary [Non-Staff] - Disposition Disposition (needs filled in before D/C Order can be placed): Home, Self Care
--- NOTE | 2024-03-04 14:45 | CASEMGMT ---
RN CM into pt room to discuss dc planning, pt lying in bed in no distress. Discussed having [facility] come in to see pt and pt declines. Offered outpt therapy and discussed benefits. Pt states her son has done this in the past. She states she needs transportation. Discussed setting up the hospital van if pt chooses [facility]. Pt states she is not sure that she wants to do this. Pt states she is doing much better and feels that she will do fine at home. Pt states she doesn't know how long she will be in [place] as she is planning on going to her dtr's home in [place]. Pt declined all services offered at this time. She is aware that if she changes her mind once home, she can notify her PCP to order services. Pt verbalized understanding. Provided pt with her son's phone number on a sticky note per request.
[2024-03-04 15:12] VITALS: BP 137/66; PULSE 76; RESP 16; TEMP 36.9; O2SAT 98
--- NOTE | 2024-03-04 16:29 | PCM.DC.SUM ---
Providers Date of Admission: 03/01/24 Date of Discharge: 03/04/24 Primary Care Physician: Dr. Shantal Bobby MD Consultations 03/03/24 07:06 Consult: Orthopedics Routine Consulting Provider: Bladimir Perry Reason for Consult: back pain, abn MRI, acute T12 compression fx and abnormalities EMERGENT Consult: No MD Notified: Yes Date Notified: 03/03/24 Time Notified: 07:29 Method of Notification: Text Reason For Visit: FALLS, INTRACTABLE BACK PAIN Diagnosis Discharge Diagnosis (1) T12 burst fracture: Status: Acute Code(s): S22.081A - Stable burst fracture of T11-T12 vertebra, initial encounter for closed fracture (2) Compression fracture of lumbar vertebra: Status: Acute Code(s): S32.000A - Wedge compression fracture of unspecified lumbar vertebra, initial encounter for closed fracture Qualifiers: Encounter type: initial encounter Lumbar vertebra fracture level: unspecified lumbar vertebra Qualified Code(s): S32.000A - Wedge compression fracture of unspecified lumbar vertebra, initial encounter for closed fracture Plan #Intractable back pain with CT with multiple pathologic compression fractures #New onset afib rvr?resolved #UTI secondary to Enterobacter #Type 2 diabetes mellitus # History of anxiety and depression # Hypertension Medications at Discharge Home Medications amlodipine 5 mg tablet 5 mg PO DAILY ##60 11/30/14 aspirin 81 mg chewable tablet 81 mg PO DAILY@0800 ##60 11/30/14 atorvastatin 40 mg tablet 40 mg PO QHS ##60 11/30/14 meclizine 25 mg tablet 25 mg PO TID PRN PRN Vertigo #20 tabs 11/30/14 sertraline 50 mg tablet 25 mg PO DAILY 02/29/24 ciprofloxacin HCl 500 mg tablet 500 mg PO BID 4 days #9 tabs 03/04/24 lidocaine 5 % topical patch 2 patch topical DAILY Back pain #30 ea 03/04/24 metoprolol tartrate 25 mg tablet 12.5 mg (1/2 x 25 mg) PO BID 30 days #30 tabs 03/04/24 Hospital Course Summary of Care Provided Minutes Spent on Discharge: 32 Hospital Course: 83-year-old female history of hypertension, BPPV presented [facility] ED 03/01/2024 with generalized weakness and frequent falls. Patient's son brought her in as she was having difficulty ambulating taking care of herself. Patient had CT with multiple compression fractures specifically a T12 fracture that appeared to be possibly acute with slight retropulsion so MRI ordered which showed acute T12 compression fracture with diffuse hypointense T1 signal throughout the vertebral body with retropulsion of the posterior cortex and mild edema extending from vertebral body into bilateral pedicles without discrete evidence of pedicle or other posterior element fractures and mild mass effect but no other spinal cord signal abnormality or additional mass effect on thoracic spinal cord. Additional changes suggestive of other compression fractures appreciated as well. Patient had continued back pain so orthospine contacted for assistance with further pain management. Ortho evaluated but by that time patient's pain had resolved and she was doing well with ambulation. Given fairly preserved mobility and minimal pain is advised that she could follow-up in the office in 2 weeks for more imaging evaluation. During patient's hospitalization she was also found to have a UTI secondary to Enterobacter on presentation and responded very well to IV antibiotics. Additionally she is found to be in A-fib with RVR with heart rates in the 150s, converted with IV Lopressor x 2 and scheduled metoprolol. Did not have any further episodes of A-fib the rest of the time she was monitored on telemetry. TSH within normal limits and echo unrevealing. We discussed the risks and benefits of starting anticoagulation given limited afib that converted and did not recur and risk of bleeding if she were to have further falls and ultimately was decided jointly that pt would be discharged with a 30-day heart monitor to evaluate for any further abnormal rhythms and follow-up with primary care physician for final determination on anticoagulation in the event further afib noted. Patient did well with therapy and it was recommended she could go home with help. Patient comfortable going home and did not want any home health. Discussed with patient's son regarding the above and discharge instructions and also discussed with patient and understanding was verbalized. On day of discharge patient with no new or acute complaints. Discharge instructions as follows: -You will be discharged on ciprofloxacin 500 mg every 12 hours with a dose tonight followed by 4 more days -Please follow-up with Dr. Perry in 2 weeks. Please call their office to schedule hospital follow-up appointment upon discharge. -You will be discharged with instructions for a 30-day heart monitor to evaluate for any further abnormal heart rhythms - you will be discharged on metoprolol twice daily due to your brief irregular heartbeat. - we discussed the risks and benefits of starting anticoagulation given the 1 brief episode of irregular heartbeat and ultimately was decided that you would be discharged with a 30-day heart monitor to evaluate for any further abnormal rhythms and follow-up with your primary care physician for final determination on anticoagulation -Please call your primary care provider's office upon discharge to schedule a hospital follow up within 1 week. -For any concerning signs or symptoms please call 911 or proceed to the nearest emergency department Physical Exam Narrative General: Alert, oriented, no apparent distress HEENT: Atraumatic, normocephalic Eyes: Anicteric, normal conjunctiva, extraocular movements grossly intact Neck: Supple Respiratory: Clear to auscultation bilaterally, normal respiratory effort Cardiovascular: Regular rate and rhythm GI: Soft, nontender, nondistended Extremities: No edema Musculoskeletal: Moving all extremities but laying back in bed Neuro: No overt focal neurological deficits Skin: No rashes appreciated Psych: Cooperative Weight / BMI Weight Weight: 62.4 kg Body Mass Index (BMI) 25.3 ABG / Lab / Microbiology Data 03/04/24 06:08 03/04/24 06:08 Laboratory: Laboratory Results - last 24 hr 03/03/24 16:22: POC Glucose 120 H 03/04/24 06:08: WBC 4.7, RBC 4.43, Hgb 13.2, Hct 41.1, MCV 92.8, MCH 29.8, MCHC 32.1, RDW Std Deviation 46.7 H, RDW Coeff of Jeanette 13.7, Plt Count 200, MPV 11.3, Immature Gran % (Auto) 0.400, Neut % (Auto) 78.5 H, Lymph % (Auto) 8.1 L, [place] % (Auto) 9.0, Eos % (Auto) 3.4, Baso % (Auto) 0.6, Absolute Neuts (auto) 3.7, Absolute Lymphs (auto) 0.38 L, Nucleated RBC % 0, Sodium 140, Potassium 3.7, Chloride 109 H, Carbon Dioxide 27.0, Anion Gap 4 L, BUN 14, Creatinine 0.60, Estim Creat Clear Calc 43.54, Est GFR (MDRD) Af Amer 121, Est GFR (MDRD) Non-Af 100, BUN/Creatinine Ratio 23.1 H, Glucose 117 H, Calcium 8.2 L 03/04/24 06:23: POC Glucose 112 H 03/04/24 11:50: POC Glucose 92 Microbiology: Microbiology 02/29/24 21:52 Urine, Clean Catch Urine Culture - Final Enterobacter cloacae complex D/C Instructions Discharge Diet: - (Carbohydrate consistent) Meaningful Use Info Meaningful Use Meaningful Use Diagnoses (Choose all that apply): None applicable Ischemic Stroke Statin Dosing Therapy Reference: STATIN DOSE THERAPY REFERENCE: * Patients > 75 years receive moderate or high dose statin therapy. * Patients 75 years or YOUNGER should receive HIGH intensity statin dose unless contraindicated. You will be required to document reason for non-treatment if statin daily dose does not meet guidelines. HIGH DOSE STATIN THERAPY DAILY Atorvastatin > than or = to 40 mg Rosuvastatin > than or = to 20 mg Amlodipine + Atorvastatin > than or = to 2.5/40 mg Ezetimibe + Simvastatin 10/80 mg Simvastatin 80mg Discharge Plan Admission Admit Date/Time: 03/01/24 00:35 Primary Reason for Your Visit: Back pain Attending Provider: Jada Alvarez Primary Care Provider: Shantal Bobby Consulting Providers: Nila Nam; Flo Yap; Bladimir Perry Instructions Patient Instructions: ED Fall Prevention Additional Instructions / Restrictions: DISCHARGE INSTRUCTIONS PLEASE READ *Please take this with you to your next doctors appointment* -You will be discharged on ciprofloxacin 500 mg every 12 hours with a dose tonight followed by 4 more days -Please follow-up with Dr. Perry in 2 weeks. Please call their office to schedule hospital follow-up appointment upon discharge. -You will be discharged with instructions for a 30-day heart monitor to evaluate for any further abnormal heart rhythms - you will be discharged on metoprolol twice daily due to your brief irregular heartbeat. - we discussed the risks and benefits of starting anticoagulation given the 1 brief episode of irregular heartbeat and ultimately was decided that you would be discharged with a 30-day heart monitor to evaluate for any further abnormal rhythms and follow-up with your primary care physician for final determination on anticoagulation -Please call your primary care provider's office upon discharge to schedule a hospital follow up within 1 week. -For any concerning signs or symptoms please call 911 or proceed to the nearest emergency department Discharge Orders/Prescriptions Prescriptions: New lidocaine 5 % Adhesive Patch,Medicated 2 patch topical DAILY Qty: 30 0RF Protocol: *Topical Application Instructions APPLICATION INSTRUCTIONS: Back metoprolol tartrate 25 mg Tablet 12.5 mg PO BID 30 Days Qty: 30 0RF ciprofloxacin HCl 500 mg tablet 500 mg PO BID 4 Days Qty: 9 0RF Continued atorvastatin 40 MG tablet 40 mg PO QHS Qty: 60 0RF Patient Comments: cholesterol amlodipine 5 MG tablet 5 mg PO DAILY Qty: 60 0RF Patient Comments: heart/blood pressure aspirin 81 MG tablet,chewable 81 mg PO DAILY@0800 Qty: 60 0RF Patient Comments: heart health meclizine 25 MG tablet 25 mg PO TID PRN PRN (Reason: Vertigo) Qty: 20 0RF Patient Comments: dizziness sertraline 50 mg tablet 25 mg PO DAILY Other Ambulatory Orders: 30 Day Event Recorder Preventi (Urgent) Timeframe: 1 Day Facility: [facility] - Location: Cardiovascular Services Ordered By: Dr. Jada Alvarez Referrals / Follow Up: Bladimir Perry MD [Med Staff - Active Staff] - Within 2 Weeks Shantal Bobby MD [Primary Care Provider] - Within 1 Week Care Physician,No Primary [Non-Staff] - Disposition Disposition (needs filled in before D/C Order can be placed): Home, Self Care Charges/Coding Visit Charges Inpatient E&M: 83607 Disch Hosp >30min
[2024-03-04 17:05] LABS: Bedside Glucose 100 mg/dL (74-106)
== END 2024-03-04 18:15 | disposition home or self-care (01) | DRG 543 ==
LOC: ED 03-01 00:14 → MS3 03-01 00:50
PROVIDERS: Internal Medicine; Admitting Provider Family Medicine; Emergency Provider Emergency Medicine; PCP Internal Medicine; Visit Provider Internal Medicine
DX: M80.08XA Age-related osteoporosis with current pathological fracture, vertebra(e), initial encounter for fracture (principal); S22.080A Wedge compression fracture of T11-T12 vertebra, initial encounter for closed fracture; N39.0 Urinary tract infection, site not specified; E11.9 Type 2 diabetes mellitus without complications; E78.5 Hyperlipidemia, unspecified; E87.6 Hypokalemia; B96.89 Other specified bacterial agents as the cause of diseases classified elsewhere; I10 Essential (primary) hypertension; I48.91 Unspecified atrial fibrillation; F41.8 Other specified anxiety disorders; M54.9 Dorsalgia, unspecified; W19.XXXA Unspecified fall, initial encounter; Z79.82 Long term (current) use of aspirin; Z79.899 Other long term (current) drug therapy; R29.6 Repeated falls
CPT/HCPCS: 36415; 70450; 71045; 72125; 72128; 72131; 72146; 72148; 80048; 80053; 81001; 82550; 82962; 83036; 83735; 84100; 84443; 84484; 85025; 85027; 87077; 87086; 87088; 87186; 93005; 93306; 94668; 97110; 97116; 97161; 97166; 97530; 97802; 99285; J7030; J7040; J7050; Q9957; A4216

== ENCOUNTER 2024-03-04 18:33 | Emergency (ER) | payer MEDICARE, SELFPAY ==
[2024-03-04 18:35] VITALS: BP 160/135; PULSE 85; RESP 18; TEMP 35.8; O2SAT 96
[2024-03-04 18:37] VITALS: BMI 27.7
--- NOTE | 2024-03-04 18:55 | EDS_ITS ---
HPI History of Present Illness Chief Complaint: Nausea/Vomiting Detail of Chief Complaint: Nausea Informant: patient Narrative Narrative: Patient presents to the emergency department complaint of nausea. Patient states that she was just discharged from the hospital this afternoon after being admitted after a fall and some compression fractures in her back. While in the vehicle back home she started complaining of severe nausea and thought she was in a throw up so she was brought back to the ER for evaluation. Patient somewhat of a poor historian but she denies headache or chest pain or abdominal pain. She denies urinary symptoms. [facility] Medical History (Updated 03/04/24 @ 21:[address] Ron Flor, DO) Diabetes mellitus, type 2 History of vertigo Anxiety and depression Compression fracture HTN (hypertension) Hyperlipidemia Home Medications ?Medication ?Instructions ?Recorded ?Last Taken ?Type amlodipine 5 mg tablet 5 mg PO DAILY ##60 11/30/14 Unknown Rx aspirin 81 mg chewable tablet 81 mg PO DAILY@0800 ##60 11/30/14 Unknown Rx atorvastatin 40 mg tablet 40 mg PO QHS ##60 11/30/14 Unknown Rx sertraline 50 mg tablet 25 mg PO DAILY 02/29/24 Unknown History ciprofloxacin HCl 500 mg tablet 500 mg PO BID 4 days #9 tabs 03/04/24 Unknown Rx lidocaine 5 % topical patch 2 patch topical DAILY Back pain 03/04/24 03/04/24 Rx #30 ea metoprolol tartrate 25 mg tablet 12.5 mg (1/2 x 25 mg) PO BID 30 03/04/24 Unknown Rx days #30 tabs ondansetron 4 mg disintegrating 4 mg PO Q8H PRN PRN Nausea #10 tabs 03/04/24 Unknown Rx tablet Allergy/AdvReac Type Severity Reaction Status Date / Time codeine Allergy Intermediate Rash Verified 03/04/24 18:34 latex Allergy Intermediate Rash Verified 03/04/24 18:34 Sulfa (Sulfonamide Allergy Intermediate Rash Verified 03/04/24 18:34 Antibiotics) Surgical History History of dental surgery Social History (Updated 03/01/24 @ 01:[address] Nila Nam MD) household members: none Smoking Status: Never smoker alcohol intake: never substance use type: does not use ROS ROS ED Review of Systems ROS Unobtainable: other Constitutional Constitutional ED: Reports lethargy; Denies chills, fever(s), sweats or weight loss Eyes Eyes: Denies blurry vision, change in vision or diplopia ENT ENT ED: Denies rhinorrhea or sore throat Cardiovascular Cardiovascular: Denies chest pain, orthopnea or racing heartbeat Respiratory/Chest Respiratory/Chest: Denies cough, dyspnea, dyspnea on exertion, orthopnea or sputum Gastrointestinal Gastrointestinal: Reports nausea; Denies abdominal pain, diarrhea or vomiting Genitourinary Genitourinary ED: Denies dysuria, hematuria or urinary frequency Musculoskeletal Musculoskeletal: Denies arthralgias, back pain, myalgias or neck pain Integumentary Denies abscess, Abrasions or rash Neurologic Neurologic: Denies headache(s) or weakness Psychiatric Psychiatric: Denies anxiety, depression or suicidal thoughts Endocrine Endocrinology: Denies polydipsia, polyphagia or polyuria Hematologic/Lymphatic Hematologic/Lymphatic: Denies easy bleeding, easy bruising or lymphadenopathy Allergic/Immunologic Allergic/Immunologic ED: Denies mouth swelling, tongue swelling or urticaria EXAM Physical Exam Const Vital Signs: 03/04/24 18:35 03/04/24 20:23 Temperature 96.5 F L Temperature Source Temporal Pulse Rate 85 83 Respiratory Rate 18 16 Blood Pressure 160/135 H 129/71 H Blood Pressure Mean 143 90 Pulse Ox 96 94 Oxygen Delivery Method Room Air Room Air Positive well nourished and well developed General Appearance ED: well developed and NAD HEENT Reports TM's clear and moist mucous membranes normocephalic and atraumatic; Negative for trauma or tenderness Tympanic Membrane ED: Yes TM's clear Eyes PERRL and EOMs intact bilaterally General Eye ED: Negative for pale conjunctiva or scleral icterus Neck no lymphadenopathy, supple and no JVD General: Negative for tenderness Chest Wall inspection of chest normal and palpation of chest normal Chest: Negative for tenderness Resp normal respiratory effort and clear to auscultation bilaterally Effort and Inspection: Negative for respiratory distress or pain with movement Auscultation: Negative for rhonchi, wheezes or diminished lung sounds Cardio regular rate, regular rhythm, S1 normal heart sound, S2 normal heart sound and no murmurs Peripheral Pulses: pulses 2+ throughout GI normal to inspection, nondistended, normoactive bowel sounds, soft to palpation, non-tender, non-distended and no masses Back/Spine no CVA tenderness and no thoracic nor lumbar tenderness Extremity normal to inspection General Extremety ED: Negative for edema General Extremity: Negative for edema Neuro oriented x3, CN's II-XII intact bilaterally, no sensory deficits noted and gait normal Sensorium / Orientation: awake, alert, oriented to person, oriented to place and oriented to time Motor Exam: strength 5/5 throughout and strength abnormal Psych mental status grossly normal Skin no rashes or lesions noted and no wounds MDM MDM MDM Narrative Medical decision making narrative: Patient presents with nausea that started rather suddenly on the way home from the hospital. Denies any abdominal pain or chest pain or headache. Clinically looks well. IV line established. She was medicated with Zofran 4 mg IV. CBC with differential, 6.2 with hemoglobin 13.8 and platelet count of 192. Chemistries unremarkable. Glucose 145. Urinalysis was normal. After treatment she felt markedly improved. She has had no vomiting. At this point should be discharged to home with diagnosis of nausea etiology uncertain. I will write her prescription for Zofran. Lab Data Attestation: I reviewed the patient's lab results. Labs: Laboratory Results - last 24 hr 03/04/24 03/04/24 19:17 20:18 WBC 6.2 RBC 4.61 Hgb 13.8 Hct 42.1 MCV 91.3 MCH 29.9 MCHC 32.8 RDW Std Deviation 45.2 H RDW Coeff of Jeanette 13.4 Plt Count 192 MPV 10.9 Immature Gran % (Auto) 0.600 Neut % (Auto) 84.5 H Lymph % (Auto) 6.4 L [place] % (Auto) 6.9 Eos % (Auto) 1.1 Baso % (Auto) 0.5 Absolute Neuts (auto) 5.2 Absolute Lymphs (auto) 0.40 L Nucleated RBC % 0 Sodium 140 Potassium 4.4 Chloride 108 H Carbon Dioxide 27.0 Anion Gap 6 BUN 17 Creatinine 0.72 Estim Creat Clear Calc 43.10 Est GFR (MDRD) Af Amer 98 Est GFR (MDRD) Non-Af 81 BUN/Creatinine Ratio 23.4 H Glucose 145 H Calcium 8.6 Troponin I High Sens 10 Urine Color Yellow Urine Clarity Clear Urine pH 6.5 Ur Specific [place] 1.010 Urine Protein 30 H Urine Glucose (UA) Normal Urine Ketones 50 H Urine Occult Blood 10 H Urine Nitrite Negative Urine Bilirubin Negative Urine Urobilinogen Normal Ur Leukocyte Esterase Negative Urine RBC 0-5 SEEN Urine WBC 0-5 SEEN Ur Squamous Epith Cells 0 SEEN Urine Bacteria RARE Urine Mucus 2+ EKG Initial EKG: Attestation: I personally reviewed and interpreted this EKG as follows: Comments: Sinus rhythm with rate of [address] changes Discharge Plan Triage Chief Complaint: Nausea/Vomiting ED Provider: Ron Flor Dx/Rx/DC Orders Clinical Impression: Nausea Instructions: ED Vomiting (Adult) Prescriptions: New ondansetron 4 mg tablet,disintegrating 4 mg PO Q8H PRN PRN (Reason: Nausea) Qty: 10 0RF No Action atorvastatin 40 MG tablet 40 mg PO QHS Qty: 60 0RF Patient Comments: cholesterol amlodipine 5 MG tablet 5 mg PO DAILY Qty: 60 0RF Patient Comments: heart/blood pressure aspirin 81 MG tablet,chewable 81 mg PO DAILY@0800 Qty: 60 0RF Patient Comments: heart health sertraline 50 mg tablet 25 mg PO DAILY lidocaine 5 % Adhesive Patch,Medicated 2 patch topical DAILY Qty: 30 0RF Protocol: *Topical Application Instructions APPLICATION INSTRUCTIONS: Back metoprolol tartrate 25 mg Tablet 12.5 mg PO BID 30 Days Qty: 30 0RF ciprofloxacin HCl 500 mg tablet 500 mg PO BID 4 Days Qty: 9 0RF Primary Care Provider: Shantal Bobby Referrals: Shantal Bobby MD [Primary Care Provider] - 3-5 Days Print Language: Serbian Disposition Disposition: Home, Self Care
--- NOTE | 2024-03-04 18:55 | EKG12_ITS ---
Test Reason : NAUSEA N V Blood Pressure : / mmHG Vent. Rate : 083 BPM Atrial Rate : 083 BPM P-R Int : 112 ms QRS Dur : 068 ms QT Int : 360 ms P-R-T Axes : 060 074 041 degrees QTc Int : 423 ms Sinus rhythm with Premature atrial complexes Nonspecific ST and T wave abnormality Abnormal ECG Confirmed by RICARDO ALEGRIA, CASPER ([id number]), editor newspaper ALDAIR VILLARREAL ([id number]) on 03/06/2024 2:08:52 PM Referred By: Ron Flor Confirmed By:CASPER SILVA MD
[2024-03-04] MEDS: Ondansetron 4 MG/2 ML Vial IV (19:17)
[2024-03-04 19:28] LABS: Absolute Neutrophil Count 5.2 X10^3/uL (2.0-7.7); Basophil# 0.03 X10^3/uL; Basophil% 0.5 % (0-1); Eosinophil# 0.07 X10^3/uL; Eosinophils% 1.1 % (0-5); Hematocrit 42.1 % (37-47); Hemoglobin 13.8 g/dL (12.0-15.0); Lymphocyte % 6.4 % (19-41); Mean Corp Hgb Conc 32.8 g/dL (32-36); Mean Corpuscular Hgb 29.9 pg (27.0-32.0); Mean Corpuscular Volume 91.3 fL (81-99); Mean Platelet Vol. 10.9 fl (6.2-12.0); Monocyte# 0.43 X10^3/uL; Monocyte% 6.9 % (0-10); NRBC Flagged by Analyzer 0 % (0-5); Neutrophil # 5.24 X10^3/uL (2.7-7.7); Neutrophil % 84.5 % (47-70); POSITIVE DIFFERENTIAL YES; Platelet Count 192 K/mm3 (150-450); RBC Distribution Width CV 13.4 % (11.6-14.6); RBC Distribution Width SD 45.2 fl (35.1-43.9); Red Blood Count 4.61 M/mm3 (4.2-5.4); White Blood Count 6.2 K/mm3 (4.4-11.0)
[2024-03-04 19:41] LABS: Anion Gap 6 (5-15); BUN 17 mg/dL (7-18); BUN/Creat Ratio 23.4 RATIO (10-20); Calcium,Total 8.6 mg/dL (8.5-10.1); Chloride 108 mmol/L (98-107); Creatinine, Serum 0.72 mg/dL (0.55-1.02); EST Glomerular Filtration Rate 81 mL/min (>60); Est Glom Filt Rate - Afr Amer 98 mL/min (>60); Glucose 145 mg/dL (74-106); Potassium 4.4 mmol/L (3.5-5.1); Sodium Level 140 mmol/L (136-145); Troponin-I HS 10 pg/mL (3.0-54.0)
[2024-03-04 20:23] VITALS: BP 129/71; PULSE 83; RESP 16; O2SAT 94
[2024-03-04 20:25] LABS: Squamous Epithelial Cells - UA 0 SEEN /hpf (5-10)
[2024-03-04 20:29] LABS: Color, Urine Yellow (Yellow); Glucose, Dipstick Normal (Normal); Ketone-Dipstick 50 mg/dl (Negative); Leukocyte Esterase-Dipstick Negative /ul (Negative); Nitrite-Dipstick Negative (Negative); Occult Blood-Urine 10 /ul (Negative); Protein-Dipstick 30 mg/dl (Negative); Urine Bilirubin Dipstick Negative (Negative); Urine Clarity Clear (Clear); Urine Urobilinogen Normal (Normal); Urine pH 6.5 (5.0 - 8.0)
[2024-03-04 20:58] LABS: Red Blood Cells-Urine 0-5 SEEN /hpf (0-5); White Blood Cells 0-5 SEEN /hpf (0-5)
[2024-03-04 21:00] LABS: Bacteria RARE /hpf (None Seen); Mucous, Urine 2+ /hpf (<or=2+)
[2024-03-04 21:39] VITALS: BP 109/59; PULSE 71; RESP 16; TEMP 36.6; O2SAT 99
== END 2024-03-04 21:40 | disposition home or self-care (01) ==
PROVIDERS: Emergency Provider Emergency Medicine; PCP Internal Medicine; Referring Provider Emergency Medicine; Visit Provider Emergency Medicine
DX: R11.2 Nausea with vomiting, unspecified (principal); E11.9 Type 2 diabetes mellitus without complications; I10 Essential (primary) hypertension; F41.9 Anxiety disorder, unspecified; F32.A Depression, unspecified; E78.5 Hyperlipidemia, unspecified; Z88.2 Allergy status to sulfonamides; Z88.5 Allergy status to narcotic agent; Z87.81 Personal history of (healed) traumatic fracture; Z79.82 Long term (current) use of aspirin; Z79.899 Other long term (current) drug therapy
CPT/HCPCS: 80048; 81001; 84484; 85025; 93005; 96374; 99284; A4216; J2405

== ENCOUNTER 2024-03-20 10:55 | Emergency (ER) | payer MEDICARE, SELFPAY ==
[2024-03-20 10:56] VITALS: BP 166/81; PULSE 84; RESP 16; TEMP 36.1; O2SAT 97; BMI 28.8
[2024-03-20 11:00] VITALS: O2SAT 97
--- NOTE | 2024-03-20 11:09 | CT_ITS ---
STUDY: CT BRAIN WITHOUT CONTRAST REASON FOR EXAM: Female, 83 years old. Head injury RADIATION DOSAGE (If Supplied By Facility): CTDIvol = ( 44.99 ) mGy, DLP = ( 829.85 ) mGycm TECHNIQUE: Transaxial CT imaging of the brain was performed without administration of intravenous contrast material. Individualized dose optimization techniques were used for this CT. COMPARISON: Comparison is made with prior study February 29, 2024. FINDINGS: Normal soft tissue structures. Normal calvarium. There is moderate cerebral atrophy with widening of the extra-axial spaces and ventricular dilatation. There are areas of decreased attenuation within the white matter tracts of the supratentorial brain, consistent with microvascular disease changes. There are small punctate calcifications of the basal ganglia which are seen in the aging brain as a normal variant. Normal brainstem. There is mild cerebellar atrophy. There is no intracranial hemorrhage. There are no findings of an acute ischemic infarction. Atherosclerotic calcification of the cavernous portions of the internal carotid arteries bilaterally. Mucosal thickening at the base of the right maxillary sinus. CT/Brain/Head without Contrast IMPRESSION: Chronic involutional changes of the brain. Electronically Signed: Leo Carbone MD at 11:57 EDT ,
--- NOTE | 2024-03-20 11:20 | RAD_ITS ---
STUDY: X-RAY - LEFT KNEE REASON FOR EXAM: Female, 83 years old. Injury TECHNIQUE: 2 view(s) of the knee. COMPARISON: None. FINDINGS: Normal visualized distal femur. Normal visualized proximal tibia and fibula. Normal proximal tibiofibular articulation. Normal medial femorotibial compartment. Normal lateral femorotibial compartment. Normal patellofemoral articulation. The soft tissue structures are unremarkable. RAD/Knee 1 or 2 Views IMPRESSION: Normal x-ray examination of the knee. Electronically Signed: Leo Carbone MD at 11:59 EDT ,
--- NOTE | 2024-03-20 11:20 | RAD_ITS ---
STUDY: X-RAY - LEFT HUMERUS REASON FOR EXAM: Female, 83 years old. Injury TECHNIQUE: 2 view(s) of the humerus. COMPARISON: None. FINDINGS: Nondisplaced transverse fracture through the surgical neck of the humerus with avulsion of the greater tuberosity. Soft tissue swelling. RAD/Humerus min 2 Views IMPRESSION: Nondisplaced transverse fracture through the surgical neck of the proximal humerus with avulsion of the greater tuberosity. Soft tissue swelling. Electronically Signed: Leo Carbone MD at 12:00 EDT ,
--- NOTE | 2024-03-20 11:20 | RAD_ITS ---
STUDY: X-RAY - LEFT SHOULDER REASON FOR EXAM: Female, 83 years old. Left shoulder pain following a fall. TECHNIQUE: 2 view(s) of the shoulder. COMPARISON: None. FINDINGS: There is mild degenerative arthrosis of the glenohumeral articulation. There is degenerative arthrosis of the acromioclavicular joint without inferior osseous spur formation. Normal acromion. Nondisplaced fracture through the surgical neck of the humerus with extension to the greater tuberosity. Soft tissue swelling. Normal visualized pulmonary apex. RAD/Shoulder min 2 Views IMPRESSION: Nondisplaced transverse fracture through the surgical neck of the proximal left humerus with extension to the greater tuberosity. Soft tissue swelling. Electronically Signed: Leo Carbone MD at 11:58 EDT ,
[2024-03-20] MEDS: oxyCODONE 5 MG Tablet PO (12:06)
--- NOTE | 2024-03-20 12:20 | ED.RN ---
CALLED PT SON SHE ASKED AND NOTIFIED HIM OF STATUS
--- NOTE | 2024-03-20 12:22 | EDS_ITS ---
HPI History of Present Illness Chief Complaint: Fall Informant: patient Narrative Narrative: Patient mechanical fall getting out of bed today. She states she hit her face on the dresser did not lose consciousness. However pain mostly in her left shoulder. She bumped her left knee. She states no anticoagulants, however records possible baby aspirin. Denies headache neck pain. Denies chest or back pain. She lives in a small apartment, uses a walker as needed however mostly does not use 1. Prior similar symptoms: Yes PFSH [facility] Medical History Diabetes mellitus, type 2 History of vertigo Anxiety and depression Compression fracture HTN (hypertension) Hyperlipidemia Home Medications ?Medication ?Instructions ?Recorded ?Last Taken ?Type amlodipine 5 mg tablet 5 mg PO DAILY #60 TABLETS 11/30/14 Unknown Rx aspirin 81 mg chewable tablet 81 mg PO DAILY@0800 ##60 11/30/14 Unknown Rx atorvastatin 40 mg tablet 40 mg PO QHS #60 TABLETS 11/30/14 Unknown Rx sertraline 50 mg tablet 25 mg PO DAILY 02/29/24 Unknown History ciprofloxacin HCl 500 mg tablet 500 mg PO BID 4 days #9 tabs 03/04/24 Unknown Rx lidocaine 5 % topical patch 2 patch topical DAILY Back pain 03/04/24 03/04/24 Rx #30 ea metoprolol tartrate 25 mg tablet 12.5 mg (1/2 x 25 mg) PO BID 30 03/04/24 Unknown Rx days #30 tabs ondansetron 4 mg disintegrating 4 mg PO Q8H PRN PRN Nausea #10 tabs 03/04/24 Unknown Rx tablet docusate sodium 100 mg capsule 100 mg PO BID #60 caps 03/20/24 Unknown Rx (Colace) oxycodone-acetaminophen 5 mg-325 1 tab PO Q6H PRN PRN Pain 3 days 03/20/24 Unknown Rx mg tablet #12 TABLETS Allergy/AdvReac Type Severity Reaction Status Date / Time codeine Allergy Intermediate Rash Verified 03/20/24 10:59 latex Allergy Intermediate Rash Verified 03/20/24 10:59 Sulfa (Sulfonamide Allergy Intermediate Rash Verified 03/20/24 10:59 Antibiotics) Surgical History History of dental surgery Social History household members: none Smoking Status: Never smoker alcohol intake: never substance use type: does not use ROS ROS ED Constitutional Constitutional ED: Denies chills, fever(s) or sweats Eyes Eyes: Denies change in vision ENT ENT ED: Denies dysphagia or sore throat Cardiovascular Cardiovascular: Denies chest pain, leg edema, palpitations or racing heartbeat Respiratory/Chest Respiratory/Chest: Denies cough, dyspnea or dyspnea on exertion Gastrointestinal Gastrointestinal: Denies abdominal pain, diarrhea, nausea or vomiting Genitourinary Genitourinary ED: Denies dysuria, hematuria or urinary frequency Musculoskeletal Musculoskeletal: Reports extremity pain; Denies back pain or neck pain Integumentary Denies rash or wounds Neurologic Neurologic: Denies headache(s), paresthesias or weakness EXAM Physical Exam Const Vital Signs: 03/20/24 10:56 03/20/24 11:00 03/20/24 12:55 Temperature 97 F L Temperature Source Temporal Pulse Rate 84 77 Respiratory Rate 16 16 Respiratory Effort Normal Non-Labored Respiratory Depth Normal Respiratory Pattern Normal Blood Pressure 166/81 H 120/59 L Blood Pressure Mean 109 79 Pulse Ox 97 97 98 Oxygen Delivery Method Room Air Room Air Room Air 03/20/24 14:00 03/20/24 14:15 Temperature 98 F Temperature Source Pulse Rate 74 74 Respiratory Rate 16 16 Respiratory Effort Respiratory Depth Respiratory Pattern Blood Pressure 122/76 H 122/76 H Blood Pressure Mean 91 91 Pulse Ox 99 99 Oxygen Delivery Method Room Air Positive well nourished and well developed Constitutional Narrative: GCS 15. General Appearance ED: well developed and NAD HEENT Reports moist mucous membranes HEENT Narrative: No trismus of the jaw no dental loosening. No facial contusion noted. normocephalic and atraumatic Eyes EOMs intact bilaterally and conjunctivae normal General Eye ED: Yes normal appearance of both eyes Neck full ROM, no lymphadenopathy and supple General: Negative for tenderness Chest Wall inspection of chest normal and palpation of chest normal Chest: Negative for tenderness Resp normal respiratory effort and normal air movement Effort and Inspection: symmetric chest movement; Negative for respiratory distress Cardio regular rate, regular rhythm and no murmurs Peripheral Pulses: pulses 2+ throughout GI normal to inspection, nondistended, normoactive bowel sounds and non-tender Palpation: Negative for guarding or rebound tenderness present Back/Spine no CVA tenderness and no thoracic nor lumbar tenderness Back/Spine Narrative: No midline thoracic or lumbar tenderness, no step-offs. Extremity Extremity Narrative: No clavicle tenderness bilaterally. Left shoulder no deformities of the shoulder however tender to palpation approximately in mid humerus. Full range of motion at the elbow. Skin intact. Soft compartments. Right upper extremity: Full range of motion Without tenderness. Lower extremities: Negative logroll bilaterally. There is small contusion of the left medial patellar. Skin intact. No bony tenderness. Soft compartments. Neuro vas intact distally. General Extremety ED: Yes tenderness; Negative for edema General Extremity: Negative for edema Neuro oriented x3, CN's II-XII intact bilaterally and no sensory deficits noted Sensorium / Orientation: awake and alert Skin Skin Narrative: See above MDM MDM MDM Narrative Medical decision making narrative: Interventions / MDM: Differential diagnosis: Diagnosis considered but do not suspect: N/A My EKG interpretation: N/A Imaging independently reviewed and interpreted by myself: Left shoulder 3 views, proximal humeral fracture nondisplaced. No dislocation. Left humerus 2 views: Proximal humeral fracture. Left knee 2 views: No fracture or dislocation noted. CT brain: No acute process, also read by radiology. External documents reviewed: N/A Test considered but not ordered:N/A ED course: Patient fall primary left shoulder injury. GCS 15. She initially declined any pain medicines ice was placed to the shoulder and her left knee. Trauma scans head was ordered. X-ray left shoulder left humerus and left knee were ordered. X-rays confirm a proximal humeral fracture. She was ordered for sling and swath. She requested pain medicines at this time therefore oxycodone was ordered. CT brain negative. Patient lives alone. Will ambulate. Nursing did call son who will come the emergency department to discussed plan of care. Patient's son did come to the emergency department. Discussed findings with him. Patient able to ambulate. Son states he can help her at home. She is giv en follow-up with on-call orthopedist for outpatient evaluation. He discussed there are plans of her possibly living with her daughter in [place]. Discussed with him to discuss with orthopedic service plan management of care for her fracture and potential plans of moving to [place]. All questions were answered. Prescription of oxycodone and Colace sent to her pharmacy. Re-evaluation: stable Disposition discussed with patient/family/significant other: Patient and son Case discussed with consulting clinician: N/A This note was generated with [facility] dictation software. It may contain incorrect words, spelling, and punctuation that were not noted in checking the note before signing. Radiography Diagnostic Testing: Clinical Impression(s) from Imaging Studies Brain CT 03/20/24 11:09 IMPRESSION: Chronic involutional changes of the brain. Electronically Signed: Leo Carbone MD at 11:57 EDT , Humerus X-Ray 03/20/24 11:20 IMPRESSION: Nondisplaced transverse fracture through the surgical neck of the proximal humerus with avulsion of the greater tuberosity. Soft tissue swelling. Electronically Signed: Leo Carbone MD at 12:00 EDT , Knee X-Ray 03/20/24 11:20 IMPRESSION: Normal x-ray examination of the knee. Electronically Signed: Leo Carbone MD at 11:59 EDT , Shoulder X-Ray 03/20/24 11:20 IMPRESSION: Nondisplaced transverse fracture through the surgical neck of the proximal left humerus with extension to the greater tuberosity. Soft tissue swelling. Electronically Signed: Leo Carbone MD at 11:58 EDT , Discharge Plan Triage Chief Complaint: Fall ED Provider: Lázaro Montalvo Dx/Rx/DC Orders Clinical Impression: Fracture of proximal end of left humerus, Fall, CHI (closed head injury), Contusion of knee, left Instructions: ED Contusion, Lower Extremity, ED Head Injury (Adult), ED Fracture, Shoulder Prescriptions: New oxycodone-acetaminophen 5-325 mg tablet 1 tab PO Q6H PRN PRN (Reason: Pain) 3 Days Qty: 12 0RF docusate sodium [Colace] 100 mg capsule 100 mg PO BID Qty: 60 0RF No Action atorvastatin 40 MG tablet 40 mg PO QHS Qty: 60 0RF Patient Comments: cholesterol amlodipine 5 MG tablet 5 mg PO DAILY Qty: 60 0RF Patient Comments: heart/blood pressure aspirin 81 MG tablet,chewable 81 mg PO DAILY@0800 Qty: 60 0RF Patient Comments: heart health sertraline 50 mg tablet 25 mg PO DAILY lidocaine 5 % Adhesive Patch,Medicated 2 patch topical DAILY Qty: 30 0RF Protocol: *Topical Application Instructions APPLICATION INSTRUCTIONS: Back metoprolol tartrate 25 mg Tablet 12.5 mg PO BID 30 Days Qty: 30 0RF ciprofloxacin HCl 500 mg tablet 500 mg PO BID 4 Days Qty: 9 0RF ondansetron 4 mg tablet,disintegrating 4 mg PO Q8H PRN PRN (Reason: Nausea) Qty: 10 0RF Primary Care Provider: Shantal Bobby Referrals: Shantal Bobby MD [Primary Care Provider] - Kai Simpson DO [Med Staff - Active Staff] - 3-5 Days Activity Restrictions/Additional Instructions: CT brain negative. Left shoulder humerus with a proximal fracture. Keep sling and swath for comfort. Take pain medication as prescribed. Stool softeners to prevent constipation. Your knee x-ray negative. Follow-up with Dr. Simpson. Print Language: Vietnamese Disposition Disposition: Home, Self Care Discharge Date/Time: 03/20/24 14:16
[2024-03-20 12:55] VITALS: BP 120/59; PULSE 77; RESP 16; O2SAT 98
[2024-03-20 14:00] VITALS: BP 122/76; PULSE 74; RESP 16; O2SAT 99
[2024-03-20 14:15] VITALS: BP 122/76; PULSE 74; RESP 16; TEMP 36.6; O2SAT 99
== END 2024-03-20 14:16 | disposition home or self-care (01) ==
PROVIDERS: Emergency Provider Emergency Medicine; PCP Internal Medicine; Visit Provider Emergency Medicine
DX: S42.215A Unspecified nondisplaced fracture of surgical neck of left humerus, initial encounter for closed fracture (principal); E11.9 Type 2 diabetes mellitus without complications; S80.02XA Contusion of left knee, initial encounter; S09.90XA Unspecified injury of head, initial encounter; W06.XXXA Fall from bed, initial encounter; Y92.003 Bedroom of unspecified non-institutional (private) residence as the place of occurrence of the external cause; I10 Essential (primary) hypertension; F41.9 Anxiety disorder, unspecified; F32.A Depression, unspecified; E78.5 Hyperlipidemia, unspecified; Z88.2 Allergy status to sulfonamides; Z79.82 Long term (current) use of aspirin; Z79.899 Other long term (current) drug therapy
CPT/HCPCS: 70450; 73030; 73060; 73560; 99284; A4216